=== PATIENT | male | born 1970 | race African-American/Black ===

== ENCOUNTER 2019-05-11 03:44 | Emergency (ER) | payer SELFPAY ==
--- NOTE | 2019-05-11 06:15 | RADIOLOGY REPORT (SQ) ---
Left foot three view on 05/11/2019 at 5:36 AM CLINICAL INDICATION: Left foot pain COMPARISON: None FINDINGS: There is mild diffuse osteopenia. Soft tissue swelling is noted around the first MTP joint. There is erosion with some overhanging edges involving the medial head of the first metatarsal suggesting changes of gout. No acute fracture is noted. Small plantar calcaneal spur is noted. No other bony abnormality is noted. IMPRESSION: Findings in the great toe suggestive of gout.
[2019-05-11] MEDS ORDERED: KETOROLAC TROMETHAMINE 60 MG/2 ML SDV IM ONE (09:22)
--- NOTE | 2019-05-11 09:28 | ER Document Report ---
ED General - General Chief Complaint: Foot Pain Stated Complaint: LEFT FOOT TOE SWELLING/RIGHT ELBOW SWELLING Time Seen by Provider: 05/11/19 07:01 TRAVEL OUTSIDE OF THE [place] IN LAST 30 DAYS: No - HPI Notes: Mr. Hood is a 48-year-old male with a past history of gout now presenting with 3-day history of increased pain and swelling over the MTP joint of his left foot. Patient also has several other areas of swelling most notably including his right elbow. He says he is taken intermittent treatment for acute gout in the past but is never been on any long-term maintenance medication. He does not currently have primary care doctor. Patient consumes beer on occasion. He is a non-smoker. His medical history is remarkable otherwise only for a history of renal stones. Patient is a building construction supervisor. - Related Data Allergies/Adverse Reactions: No Known Allergies Allergy (Verified 05/11/19 04:27) Home Medications: MOTRIN Past Medical History - General Information source: Patient, Relative - Social History Smoking Status: Former Smoker Frequency of alcohol use: Occasional Drug Abuse: None Lives with: Family Family History: Reviewed & Not Pertinent Patient has suicidal ideation: No Patient has homicidal ideation: No Renal/ Medical History: Reports: Hx Kidney Stones. Denies: Hx Peritoneal Dialysis Musculoskeletal Medical History: Reports Hx Arthritis - gout Review of Systems - Review of Systems Notes: Constitutional: Negative for fever. HENT: Negative for sore throat. Eyes: Negative for visual changes. Cardiovascular: Negative for chest pain. Respiratory: Negative for shortness of breath. Gastrointestinal: Negative for abdominal pain, vomiting or diarrhea. Genitourinary: Negative for dysuria. Musculoskeletal: As per HPI. Skin: Negative for rash. Neurological: Negative for headaches, weakness or numbness. 10 point ROS negative except as marked above and in HPI. Physical Exam - Vital signs Vitals: Temp Pulse Resp BP Pulse Ox 97.6 F 62 20 151/93 H 99 05/11/19 04:18 05/11/19 04:18 05/11/19 04:18 05/11/19 04:18 05/11/19 04:18 - Notes Notes: GENERAL: Well-developed well-nourished appearing in no acute distress. SKIN: Good turgor no rashes. HEAD: Normocephalic atraumatic. EYES: PERRLA. EOMI. Conjunctivae and sclerae clear. EARS: CANALS AND TMS CLEAR. NOSE: CLEAR. MOUTH: Moist mucosa. Good dentition. No stridor or edema. No drooling. NECK: Supple. No masses or thyromegaly. No adenopathy. Carotids 2+ without bruits. No JVD. BACK: Symmetrical without tenderness. CHEST: Respirations unlabored. Breath sounds clear and symmetrical. HEART: Regular rhythm. No murmur gallop or rub. ABDOMEN: Soft nontender without masses, organomegaly or rebound. Bowel sounds normally active. No bruits. GENITALIA: Deferred. EXTREMITIES: Tophaceous gout involving multiple joints. Patient has prominent swelling over the right olecranon area without warmth or redness. He has some soft tissue swelling tenderness and redness MTP joint left foot.. No calf tenderness. Cap refill less than 1.5 seconds. Dorsalis pedis and posterior tibial pulses 3+ and symmetrical. NEUROLOGICAL: GCS 15. Alert and oriented x3. Normal gait. Fluent speech. Cranial nerves II through XII intact. Sensorimotor and cerebellar normal. Normal tone. PSYCHIATRIC: Appropriate affect. Course - Re-evaluation Re-evalutation: 05/11/19 09:26 Clinical findings are consistent with chronic tophaceous gout with acute exacerbation and acute Prodegra. X-ray has been reviewed. He is given IM Toradol. - Vital Signs Vital signs: Temp Pulse Resp BP Pulse Ox 97.6 F 62 20 151/93 H 99 05/11/19 04:18 05/11/19 04:18 05/11/19 04:18 05/11/19 04:18 05/11/19 04:18 Discharge - Discharge Clinical Impression: Chronic tophaceous gout with acute exace Condition: Stable Disposition: HOME, SELF-CARE Additional Instructions: Gout Diet Changing your diet can decrease the uric acid in your blood. High levels of uric acid cause gouty arthritis and uric acid kidney stones. If you have gout, you should avoid meats that are high in purine. Meat products to avoid include liver, kidneys, and brains. In general, poultry is better than red meats. Seafoods to avoid include anchovies, sardines, mitchell, mackerel, and scallops. In addition to limiting purine-rich foods, people with gout should limit protein intake to 10-15% of total calories. Carbohydrate intake should be around 50% of total daily calories. Limit fat intake to 30% of total daily calories. Cholesterol intake should be less than 300 mg/day. Maintain or achieve a healthy body weight. Weight loss should be gradual. Rapid weight loss can actually increase uric acid levels temporarily. Alcohol, especially beer, should be avoided. Get plenty of fluids. This dilutes urinary uric acid, and helps prevent uric acid kidney stones. Drink eight to twelve cups of water daily. Gout You have been diagnosed as having gout. Gout is a problem caused by an excess of uric acid, a natural chemical found in the body. The cause of this disease is unknown. Gout arthritis occurs when crystals of uric acid form in the joints. The big toe is the most common joint involved, but any joint can become affected. Persons with gout may also form uric acid kidney stones, resulting in flank pain and blood in the urine. Nodules of uric acid may form under the skin. The first step of treatment is to decrease the inflammation in the joint with antiinflammatory medication. Medication to lower the uric acid level in the blood may then be prescribed. This medication should be taken regularly, as any sudden change in dosage may provoke an attack of gout. Some foods, such as red meat, can provoke an attack in some gout sufferers. Call the doctor if new symptoms arise, or if you do not improve. Ice and elevation. Take prescribed medication as instructed. You will be provided a work note for the next 3 days. Return here as needed for new or worsening symptoms: Pain that is worsening or unimproved Uncontrolled vomiting High fever or shaking chills Overall worsening Prescriptions: Colchicine [Colchicine 0.6 mg Tablet] 0.6 mg PO BID 30 Days #60 tablet Naproxen 500 mg PO BID PRN 7 Days #14 tablet PRN Reason: Forms: Return to Work Referrals: [facility] [Provider Group] - Follow up as needed
[2019-05-11 10:35] VITALS: BP 155/89
== END 2019-05-11 10:35 | disposition home or self-care (01) ==
LOC: ER 03:44
DX: M1A.9XX1 Chronic gout, unspecified, with tophus (tophi) (principal); M79.672 Pain in left foot; M25.421 Effusion, right elbow; Z87.442 Personal history of urinary calculi
CPT/HCPCS: 99283; 96372; 73630; J1885

== ENCOUNTER 2020-03-03 17:09 | Emergency (ER) | payer SELFPAY ==
[2020-03-03 17:15] VITALS: BP 127/60
--- NOTE | 2020-03-03 17:36 | ER Document Report ---
ED General - General Chief Complaint: Cough Stated Complaint: COUGH,CONGESTION,FEVER,BODY ACHES Time Seen by Provider: 03/03/20 17:35 Primary Care Provider: JA VICK MD [ACTIVE STAFF] - Follow up as needed CATHLEEN AVILES [Primary Care Provider] - Follow up as needed TRAVEL OUTSIDE OF THE [place] IN LAST 30 DAYS: No - HPI Notes: 49-year-old male presents to the emergency room today for evaluation of a cough that he has been having for the last 5 days that has become progressively worse. Patient states that he has had flulike symptoms,, nasal congestion, slightly productive cough over the last 3 days. Patient did not get the flu shot this year. Patient states he is around multiple people because of his job, he is unsure if he has had any Covid exposure. Patient denies smoking. Denies any history of COPD or asthma. Decrease eating but is drinking without any issues. Denies fevers, chills, chest pain,palpitations, shortness of breath, dyspnea, nausea, vomiting, diarrhea, abdominal pain, hematuria, LH, dizziness, syncope, headaches, wheezing, ST, URI, neck pain, weakness, bowel or bladder dysfunction, saddle anesthesia, numbness or tingling in bilateral upper or lower extremities equally, muscle paralysis, weakness in bilateral upper or lower extremities equally or rash. Denies IV drug use. - Related Data Allergies/Adverse Reactions: No Known Allergies Allergy (Verified 03/03/20 17:48) Past Medical History - General Information source: Patient - Social History Smoking Status: Unknown if Ever Smoked Family History: Reviewed & Not Pertinent Renal/ Medical History: Reports: Hx Kidney Stones. Denies: Hx Peritoneal Dialysis Musculoskeletal Medical History: Reports Hx Arthritis - gout Review of Systems - Review of Systems Constitutional: No symptoms reported EENT: No symptoms reported Cardiovascular: No symptoms reported Respiratory: See HPI Gastrointestinal: No symptoms reported Genitourinary: No symptoms reported Male Genitourinary: No symptoms reported Musculoskeletal: No symptoms reported Skin: No symptoms reported Hematologic/Lymphatic: No symptoms reported Neurological/Psychological: No symptoms reported Physical Exam - Vital signs Vitals: Temp Pulse Resp BP Pulse Ox 99.5 F 88 16 127/60 H 99 03/03/20 17:14 03/03/20 17:14 03/03/20 17:14 03/03/20 17:14 03/03/20 17:14 - Notes Notes: MEDICATIONS: I agree with the patient medications as charted by the RN. ALLERGIES: I agree with the allergies as charted by the RN. PAST MEDICAL HISTORY/PAST SURGICAL HISTORY: Reviewed and agree as charted by RN. SOCIAL HISTORY: Reviewed and agree as charted by RN. FAMILY HISTORY: No significant familial comorbid conditions directly related to patient complaint EXAM: Reviewed vital signs as charted by RN. PHYSICAL EXAMINATION:reviewed vital signs by RN GENERAL: Well-appearing, well-nourished and in no acute distress. HEAD: Atraumatic, normocephalic. EYES: Pupils equal round and reactive to light, extraocular movements intact, sclera anicteric, conjunctiva are normal. boggy turbinates bilaterally ENT: Nares patent, oropharynx clear without exudates. Moist mucous membranes. NECK: Normal range of motion, supple without lymphadenopathy LUNGS: Breath sounds clear to auscultation bilaterally and equal. No wheezes rales or rhonchi. HEART: Regular rate and rhythm without murmurs ABDOMEN: Soft, nontender, nondistended abdomen. No guarding, no rebound. No masses appreciated. CVA tenderness appreciated bilaterally Musculoskeletal: Normal range of motion, no pitting or edema. No cyanosis. NEUROLOGICAL: Cranial nerves grossly intact. Normal speech, normal gait. Normal sensory, motor exams PSYCH: Normal mood, normal affect. SKIN: Warm, Dry, normal turgor, no rashes or lesions noted. Course - Re-evaluation Re-evalutation: 03/03/20 19:48 Afebrile vital stable no distress. Nurses notes reviewed. CBC does show anemia. CMP shows a creatinine of 2.92, BUN is 38, totally total bilirubin 1.1, direct bilirubin 0.9, ALT 56, AST 49, alk phos 612. 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 Patient states that he was given a nephrostomy tube, had a wait about a month for the infection to clear, and then they changed out the stent, he has not seen nephrology since then, has not seen a primary care doctor since then. Patient states he has not had any follow-up since November 2018. Consulted with Dr. José Antonio Meza, ER supervising physician who advised to call [facility] if they could fax over their last set of labs and what the disposition was from October 2018 since patient is a poor historian. [facility] said they would fax over the last set of labs that they had in the disposition. When I discussed with patient that we will have to do further testing, and consult with a urologist, he states that he does not want to stay any longer for any testing because he feels fine. he was happy to hear that his chest x-ray was negative, he said he felt better after receiving Decadron shot and was ready to leave. Patient states he has not been dialysis has not seen a video games storywriter. He states that if he does not leave now he is going to lose his job. After performing a Medical Screening Examination, I spoke with the patient at length in regards to leaving the hospital against medical advice. I do not believe the patient should leave but the patient is alert oriented x4, understands the risks and benefits of staying and leaving including disability and . Pt understands that he can return at any time for further care and is more than welcome to do so. Pt verbalizes this understanding. - Vital Signs Vital signs: Temp Pulse Resp BP Pulse Ox 99.5 F 88 16 127/60 H 99 03/03/20 17:46 03/03/20 17:14 03/03/20 17:14 03/03/20 17:14 03/03/20 17:14 - Laboratory Result Diagrams: 03/03/20 18:08 03/03/20 18:08 Laboratory results interpreted by me: 03/03/20 03/03/20 03/03/20 18:08 18:08 18:08 WBC 3.4 L RBC 4.02 L Hgb 10.7 L Hct 31.9 L MCV 79 L MCH 26.6 L RDW 14.2 H Plt Count 87 L Lymph % (Auto) 10.2 L [place] % (Auto) 13.4 H Absolute Lymphs (auto) 0.3 L Carbon Dioxide 19 L BUN 38 H Creatinine 2.92 H Est GFR ( Amer) 28 L Est GFR (MDRD) Non-Af 23 L Glucose 124 H Direct Bilirubin 0.9 H ALT 56 H Alkaline Phosphatase 612 H Lipase 307.1 H Discharge - Discharge Clinical Impression: Cough, FRANKLYN (acute kidney injury) Disposition: AGAINST MEDICAL ADVICE Instructions: COVID-19 Guidance for Persons Under Investigation Prescriptions: Albuterol Sulfate [Proair Respiclick] 90 mcg IH Q4HP PRN #1 [id number] PRN Reason: Prednisone [Deltasone 20 mg Tablet] 3 tab PO DAILY 5 Days #15 tablet Azithromycin [Zithromax] 250 mg PO DAILY 5 Days #6 tablet Forms: Return to Work Referrals: TRACI,CATHLEEN [Primary Care Provider] - Follow up as needed JA VICK MD [ACTIVE STAFF] - Follow up as needed
--- NOTE | 2020-03-03 18:14 | RADIOLOGY REPORT (SQ) ---
EXAM DESCRIPTION: CHEST SINGLE VIEW IMAGES COMPLETED DATE/TIME: 03/03/2020 5:57 pm REASON FOR STUDY: cough COMPARISON: None. NUMBER OF VIEWS: One view. TECHNIQUE: Single frontal radiographic view of the chest acquired. LIMITATIONS: None. FINDINGS: LUNGS AND PLEURA: Low lung volumes. No opacities, masses or pneumothorax. No pleural eff usion. MEDIASTINUM AND HILAR STRUCTURES: No masses. No contour abnormality. HEART AND VASCULAR STRUCTURES: Normal size. No evidence for failure. BONES: No acute findings. HARDWARE: None in the chest. OTHER: No other significant finding. IMPRESSION: LOW LUNG VOLUMES. NO SIGNIFICANT RADIOGRAPHIC FINDING IN THE CHEST. TECHNICAL DOCUMENTATION: JOB ID: [id number] 2010 [employer] All Rights Reserved Reading location - IP/workstation name: [email or web address]
[2020-03-03] MEDS ORDERED: DEXAMETHASONE SOD PHOS INJ 10 MG/1 ML VIAL IM ONE (18:28)
[2020-03-03 18:34] LABS: ABSOLUTE LYMPHOCYTES (AUTO) 0.3 10^3/uL (0.5-4.7); ABSOLUTE MONOCYTES (AUTO) 0.5 10^3/uL (0.1-1.4); ABSOLUTE NEUT (AUTO) 2.6 10^3/uL (1.7-8.2); BASOPHILS % (AUTO) 0.3 % (0-2); EOSINOPHILS % (AUTO) 0.6 % (0-6); HEMATOCRIT 31.9 % (37.9-51.0); HEMOGLOBIN 10.7 g/dL (13.5-17.0); LYMPHOCYTES % (AUTO) 10.2 % (13-45); MEAN CORPUSCULAR HEMOGLOBIN 26.6 pg (27.0-33.4); MEAN CORPUSCULAR HGB CONC 33.5 g/dL (32.0-36.0); MEAN CORPUSCULAR VOLUME 79 fl (80-97); MONOCYTES % (AUTO) 13.4 % (3-13); RED BLOOD COUNT 4.02 10^6/uL (4.35-5.55); RED CELL DISTRIBUTION WIDTH 14.2 % (11.5-14.0); SEGMENTED NEUTROPHILS % (AUTO) 75.5 % (42-78); TOTAL CELLS COUNTED % (AUTO) 100 %; WHITE BLOOD COUNT 3.4 10^3/uL (4.0-10.5)
[2020-03-03] MEDS ORDERED: DEXAMETHASONE SOD PHOSPHATE INJ 4 MG/1 ML VIAL ONE (18:42)
[2020-03-03 18:47] LABS: A TYPE INFLUENZA AG NEGATIVE (NEGATIVE); B INFLUENZA AG NEGATIVE (NEGATIVE)
[2020-03-03 18:50] LABS: ALBUMIN 3.9 g/dL (3.5-5.0); ALKALINE PHOSPHATASE 612 U/L (38-126); ANION GAP 13 (5-19); ASPARTATE AMINO TRANSFERASE 49 U/L (17-59); BILIRUBIN,DIRECT 0.9 mg/dL (0.0-0.4); BILIRUBIN,TOTAL 1.1 mg/dL (0.2-1.3); BLOOD UREA NITROGEN 38 mg/dL (7-20); CALCIUM 10.1 mg/dL (8.4-10.2); CARBON DIOXIDE 19 mmol/L (22-30); CHLORIDE 106 mmol/L (98-107); GLUCOSE 124 mg/dL (75-110); POTASSIUM 4.1 mmol/L (3.6-5.0); TOTAL PROTEIN 7.2 g/dL (6.3-8.2)
[2020-03-03 18:52] LABS: PLATELET COUNT 87 10^3/uL (150-450)
[2020-03-03] MEDS ORDERED: NORMAL SALINE 1000 ML 1,000 ML IV ONE (19:21)
== END 2020-03-03 19:57 | disposition left against medical advice (07) ==
LOC: ER 17:09
DX: U07.1 COVID-19 (principal); N17.9 Acute kidney failure, unspecified; R05 Cough; R09.81 Nasal congestion; D64.9 Anemia, unspecified; Z87.442 Personal history of urinary calculi; Z53.29 Procedure and treatment not carried out because of patient's decision for other reasons
CPT/HCPCS: 99284; 96372; 36415; 83690; 85025; 87635; 80053; 87804; 71045; J1100; C9803

== ENCOUNTER 2020-03-09 12:00 | Inpatient (IN) | payer SELFPAY ==
[2020-03-09] MEDS ORDERED: NORMAL SALINE 1000 ML 1,000 ML IV ONE (12:22)
[2020-03-09] MEDS ORDERED: ACETAMINOPHEN 325 MG TABLET PO ONE ×2 (12:22→12:23)
--- NOTE | 2020-03-09 12:37 | RADIOLOGY REPORT (SQ) ---
EXAM DESCRIPTION: CHEST SINGLE VIEW IMAGES COMPLETED DATE/TIME: 03/09/2020 12:26 pm REASON FOR STUDY: Hypoxic, dyspnea, Covid positive COMPARISON: 03/03/2020 EXAM PARAMETERS: NUMBER OF VIEWS: One view. TECHNIQUE: Single frontal radiographic view of the chest acquired. RADIATION DOSE: NA LIMITATIONS: None. FINDINGS: LUNGS AND PLEURA: There is diffuse bilateral alveolar airspace disease most marked in the lung bases. This could represent pneumonia or edema. Clinical correlation is needed. No effusions. MEDIASTINUM AND HILAR STRUCTURES: No masses. Contour normal. HEART AND VASCULAR STRUCTURES: Heart size is normal. There is mild central vascular prominence. BONES: No acute findings. HARDWARE: None in the chest. OTHER: There is gastric distention. IMPRESSION: Bibasilar alveolar airspace disease either pneumonia or edema. Fairly marked gastric distention. TECHNICAL DOCUMENTATION: JOB ID: [id number] 2010 [employer]- All Rights Reserved Reading location - IP/workstation name: [email or web address]
[2020-03-09 12:50] LABS: HEMATOCRIT 34.7 % (37.9-51.0); HEMOGLOBIN 11.6 g/dL (13.5-17.0); MEAN CORPUSCULAR HEMOGLOBIN 25.8 pg (27.0-33.4); MEAN CORPUSCULAR HGB CONC 33.3 g/dL (32.0-36.0); MEAN CORPUSCULAR VOLUME 77 fl (80-97); PLATELET COUNT 206 10^3/uL (150-450); RED BLOOD COUNT 4.48 10^6/uL (4.35-5.55); RED CELL DISTRIBUTION WIDTH 13.9 % (11.5-14.0); WHITE BLOOD COUNT 10.1 10^3/uL (4.0-10.5)
[2020-03-09 13:15] LABS: ALBUMIN 3.9 g/dL (3.5-5.0); ALKALINE PHOSPHATASE 721 U/L (38-126); ANION GAP 17 (5-19); ASPARTATE AMINO TRANSFERASE 63 U/L (17-59); BILIRUBIN,DIRECT 0.9 mg/dL (0.0-0.4); BILIRUBIN,TOTAL 1.1 mg/dL (0.2-1.3); BLOOD UREA NITROGEN 84 mg/dL (7-20); C-REACTIVE PROTEIN 66.3 mg/L (<10.0); CALCIUM 9.6 mg/dL (8.4-10.2); CARBON DIOXIDE 14 mmol/L (22-30); CHLORIDE 108 mmol/L (98-107); CREATINE KINASE 45 U/L (55-170); GLUCOSE 145 mg/dL (75-110); POTASSIUM 4.8 mmol/L (3.6-5.0); TOTAL PROTEIN 7.9 g/dL (6.3-8.2)
[2020-03-09 13:26] LABS: ABSOLUTE LYMPHOCYTES# (MANUAL) 0.8 10^3/uL (0.5-4.7); ABSOLUTE MONOCYTES # (MANUAL) 0.1 10^3/uL (0.1-1.4); BAND NEUTROPHILS % (MANUAL) 1 % (3-5); BASOPHILS % (MANUAL) 0 % (0-2); EOSINOPHILS % (MANUAL) 0 % (0-6); LYMPHOCYTES % (MANUAL) 8 % (13-45); MONOCYTES % (MANUAL) 1 % (3-13); SEGMENTED NEUTROPHILS % (MAN) 90 % (42-78); TOTAL CELLS COUNTED 100
[2020-03-09 13:28] LABS: ANISOCYTOSIS SLIGHT; HYPOCHROMASIA 1+
[2020-03-09 13:33] LABS: ERYTHROCYTE SEDIMENTATION RATE 106 mm/hr (0-20)
[2020-03-09 13:35] LABS: PLATELET COMMENT ADEQUATE
--- NOTE | 2020-03-09 13:50 | ER Document Report ---
Entered by SERENE ABRAMS SCRIBE 03/09/20 1202 Acting as scribe for:EUGENIO UREÑA MD ED Respiratory Problem - General Stated Complaint: COVID + SHORTNESS OF BREATH Time Seen by Provider: 03/09/20 12:02 Mode of Arrival: Ambulatory Information source: Patient Notes: This 49 year old male patient presents to the emergency department today with complaints of shortness of breath. Patient was seen here on 03/03 and was tested for COVID and he was POSITIVE. He reports increasing shortness of breath over the past two days with fevers. Patient reports his cough has gotten a little better. Medic 9 reported an oxygen saturation of 29% on room air when they arrived at the patient's residence, vlad to 80% on cpap. TRAVEL OUTSIDE OF THE [place] IN LAST 30 DAYS: No - Related Data Allergies/Adverse Reactions: No Known Allergies Allergy (Verified 03/03/20 17:48) Past Medical History - General Information source: Patient, [facility] Records - Social History Smoking Status: Never Smoker Cigarette use (# per day): No Frequency of alcohol use: None Drug Abuse: None Family History: Reviewed & Not Pertinent Renal/ Medical History: Reports: Hx Kidney Stones Musculoskeletal Medical History: Reports Hx Gout Past Surgical History: Reports: Other - kidney stone removal Review of Systems - Review of Systems Constitutional: See HPI, Fever EENT: No symptoms reported Cardiovascular: No symptoms reported Respiratory: See HPI, Short of breath. denies: Cough Gastrointestinal: No symptoms reported Genitourinary: No symptoms reported Male Genitourinary: No symptoms reported Musculoskeletal: No symptoms reported Skin: No symptoms reported Hematologic/Lymphatic: No symptoms reported Neurological/Psychological: No symptoms reported -: Yes All other systems reviewed and negative Physical Exam - Vital signs Vitals: Temp 100.7 F H 03/09/20 12:38 - Notes Notes: Physical Exam: General: Alert, on c-pap saturating in the upper 90s. HEENT: Normocephalic. Atraumatic. PERRL. Extraocular movements intact. Oropharynx clear. Neck: Supple. Non-tender. Respiratory: Moderate respiratory distress. Rhonchi bilaterally. Tachypneic into the 30s. Cardiovascular: Tachycardic, regular rhythm. Abdominal: Normal Inspection. Non-tender. No distension. Normal Bowel Sounds. Back: No gross abnormalities. Extremities: Moves all four extremities. Upper extremities: Normal inspection. Normal ROM. Lower extremities: Normal inspection. No edema. Normal ROM. Neurological: Normal cognition. AAOx4. Normal speech. Psychological: Normal affect. Normal Mood. Skin: Warm. Dry. Normal color. Course - Re-evaluation Re-evalutation: 03/09/20 13:55 Patient is on BiPAP with an FiO2 50%. He is maintaining an O2 saturation of 96%. His pulse has come down to 88. Lab work came back showing acute worsening of his already impaired renal function, chest x-ray is consistent with Covid pneumonia. He will be given Decadron 6 mg IV, and open the current normal saline IV back to wide-open. Dr. Lester will be admitting the patient. - Vital Signs Vital signs: Temp Pulse Resp BP Pulse Ox 100.7 F H 31 H 95 03/09/20 12:38 03/09/20 13:08 03/09/20 13:08 - Laboratory Result Diagrams: 03/09/20 12:12 03/09/20 12:12 Laboratory results interpreted by me: 03/09/20 03/09/20 03/09/20 12:12 12:12 12:12 Hgb 11.6 L Hct 34.7 L MCV 77 L MCH 25.8 L Seg Neuts % (Manual) 90 H Band Neutrophils % 1 L Lymphocytes % (Manual) 8 L Monocytes % (Manual) 1 L Abs Neuts (Manual) 9.2 H ESR 106 H VBG pCO2 VBG HCO3 Chloride 108 H Carbon Dioxide 14 L BUN 84 H Creatinine 4.87 H Est GFR ( Amer) 15 L Est GFR (MDRD) Non-Af 13 L Glucose 145 H Ferritin 554.00 H Direct Bilirubin 0.9 H AST 63 H Alkaline Phosphatase 721 H Creatine Kinase 45 L C-Reactive Protein 66.3 H NT-Pro-B Natriuret Pep 155 H 03/09/20 13:20 Hgb Hct MCV MCH Seg Neuts % (Manual) Band Neutrophils % Lymphocytes % (Manual) Monocytes % (Manual) Abs Neuts (Manual) ESR VBG pCO2 23.3 L VBG HCO3 11.7 L Chloride Carbon Dioxide BUN Creatinine Est GFR ( Amer) Est GFR (MDRD) Non-Af Glucose Ferritin Direct Bilirubin AST Alkaline Phosphatase Creatine Kinase C-Reactive Protein NT-Pro-B Natriuret Pep - Diagnostic Test Radiology reviewed: Image reviewed, Reports reviewed - Chest x-ray shows diffuse bilateral alveolar airspace disease most marked in the lung bases c/w with either pneumonia or edema. Fairly marked gastric distention. - EKG Interpretation by Me EKG shows normal: Sinus rhythm, Dana, Intervals, QRS Complexes, ST-T Waves Rate: Normal - 81 Rhythm: NSR Voltage: Consistent with LVH When compared to previous EKG there are: Previous EKG unavailable - Consults Dr. Lester Time consulted: 13:55 Consulted provider: will come to ER Discharge - Discharge Clinical Impression: Lab test positive for detection of COVID-19 virus, Pneumonia due to COVID-19 virus, FRANKLYN (acute kidney injury), Dehydration Fever Qualifiers: Fever type: unspecified Qualified Code(s): R50.9 - Fever, unspecified Condition: Fair Disposition: ADMITTED INPATIENT Admitting Provider: Tayler (Hospitalist) Unit Admitted: IMCU I personally performed the services described in the documentation, reviewed and edited the documentation which was dictated to the scribe in my presence, and it accurately records my words and actions.
[2020-03-09] MEDS ORDERED: DEXAMETHASONE SOD PHOS INJ 10 MG/1 ML VIAL IV ONE (14:01)
[2020-03-09 14:09] LABS: VENOUS BLOOD BASE EXCESS -11.7 mmol/L; VENOUS BLOOD HCO3 11.7 mmol/L (20-32); VENOUS BLOOD PCO2 23.3 mmHg (35-63); VENOUS BLOOD PH 7.32 (7.30-7.42)
[2020-03-09] MEDS ORDERED: IPRATROPIUM/ALBUTEROL 0.5-2.5 MG/3 ML AMPUL NEB PRN (16:24)
[2020-03-09] MEDS ORDERED: ONDANSETRON HCL INJ/PF 4 MG/2 ML SDV IV PRN (16:24)
--- NOTE | 2020-03-09 17:35 | PDOC H&P ---
History of Present Illness Admission Date/PCP: 03/09/20 14:45 Patient complains of: Shortness of breath History of Present Illness: TERENCE HINTON JR is a 49 year old male, no significant PMH who came in the ED today due to progressive SOB. Patient was seen in the emergency room on March 03, 2020 with complaints of cough fever and congestion 5 days duration. Chest x-ray was negative. He was noted to have elevated creatinine during that visit. He was advised to be admitted but he insisted he wanted to go home. He was tested for Covid and the result came back positive the next day. At home he continued to have cough congestion with progressive shortness of breath which acutely worsened today hence he came to the ED. He was noted to have an O2 sat of 80% in the ambulance on the way here. In the ED blood pressure 129/60 heart rate of 75 respiratory rate of 32 O2 sat 96% on CPAP. He was placed on BiPAP in the ED continue to have saturation of 100%. Repeat chest x-ray showed bibasilar alveolar airspace disease. CBC unremarkable, CMP showed a creatinine of 4.87 which is increased from 2.92 from his last visit. Ferritin elevated to 554 CRP elevated to 66.3. Hospitalist service was called to admit the patient. Past Medical History Medical History: None Cardiac Medical History: Reports: None Pulmonary Medical History: Reports: None EENT Medical History: Reports: None Neurological Medical History: Reports: None Endocrine Medical History: Reports: None Renal/ Medical History: Reports: None Malignancy Medical History: Reports: None GI Medical History: Reports: None Musculoskeltal Medical History: Reports: Arthritis - gout, Gout Skin Medical History: Reports: None Psychiatric Medical History: Reports: None Traumatic Medical History: Reports: None Hematology: Reports: None Infectious Medical History: Reports: None Past Surgical History Past Surgical History: Reports: None, Other - kidney stone removal Social History Information Source: Patient Lives with: Family Smoking Status: Never Smoker Electronic Cigarette use?: No Frequency of Alcohol Use: Occasional Hx Recreational Drug Use: No Drugs: None Family History Family History: Reviewed & Not Pertinent Parental Family History Reviewed: Yes Children Family History Reviewed: Yes Sibling(s) Family History Reviewed.: Yes Medication/Allergy Home Medications: Codeine Phosphate/Guaifenesin [Virtussin AC 10-100 mg/5 ml Lq] 5 ml PO Q6HP PRN 11/13/20 Doxycycline Hyclate [Vibramycin 100 mg Tablet] 100 mg PO DAILY 03/09/20 Allergies/Adverse Reactions: No Known Allergies Allergy (Verified 03/03/20 17:48) Review of Systems Constitutional: PRESENT: fatigue, weakness Ears: ABSENT: hearing changes Nose, Mouth, and Throat: ABSENT: sore throat Cardiovascular: PRESENT: dyspnea on exertion Respiratory: PRESENT: cough Psychiatric: ABSENT: anxiety Endocrine: ABSENT: heat intolerance Physical Exam Vital Signs: Temp Pulse Resp BP Pulse Ox 98.5 F 33 H 122/74 96 03/09/20 16:57 03/09/20 15:00 03/09/20 15:00 03/09/20 15:00 Intake & Output 03/08/20 03/09/20 03/10/20 06:59 06:59 06:59 Weight 77.111 kg General appearance: PRESENT: cooperative, other - Moderate distress Head exam: PRESENT: atraumatic, normocephalic Eye exam: PRESENT: EOMI, PERRLA Mouth exam: PRESENT: dry mucosa Neck exam: PRESENT: full ROM Respiratory exam: PRESENT: rales, symmetrical, tachypnea Cardiovascular exam: PRESENT: RRR, +S1, +S2 Pulses: PRESENT: +2 pedal pulses bilateral GI/Abdominal exam: PRESENT: normal bowel sounds, soft. ABSENT: rebound, tenderness Extremities exam: PRESENT: full ROM Musculoskeletal exam: PRESENT: full ROM Neurological exam: PRESENT: alert, awake, oriented to person, oriented to place, oriented to time, oriented to situation Psychiatric exam: PRESENT: normal mood Results Laboratory Results: 03/09/20 12:12 03/09/20 12:12 03/09/20 03/09/20 03/09/20 12:12 12:12 12:12 WBC 10.1 RBC 4.48 Hgb 11.6 L Hct 34.7 L MCV 77 L MCH 25.8 L MCHC 33.3 RDW 13.9 Plt Count 206 Seg Neutrophils % Not Reportable VBG pH VBG pCO2 VBG HCO3 VBG Base Excess Sodium 139.2 Potassium 4.8 Chloride 108 H Carbon Dioxide 14 L Anion Gap 17 BUN 84 H Creatinine 4.87 H Est GFR ( Amer) 15 L Glucose 145 H Calcium 9.6 Magnesium 1.9 Ferritin 554.00 H Total Bilirubin 1.1 AST 63 H Alkaline Phosphatase 721 H C-Reactive Protein 66.3 H Total Protein 7.9 Albumin 3.9 03/09/20 13:20 WBC RBC Hgb Hct MCV MCH MCHC RDW Plt Count Seg Neutrophils % VBG pH 7.32 VBG pCO2 23.3 L VBG HCO3 11.7 L VBG Base Excess -11.7 Sodium Potassium Chloride Carbon Dioxide Anion Gap BUN Creatinine Est GFR ( Amer) Glucose Calcium Magnesium Ferritin Total Bilirubin AST Alkaline Phosphatase C-Reactive Protein Total Protein Albumin 03/09/20 03/09/20 03/09/20 12:12 12:12 12:12 Creatine Kinase 45 L Troponin I 0.063 NT-Pro-B Natriuret Pep 155 H Impressions: Chest X-Ray 03/09/20 12:14 IMPRESSION: Bibasilar alveolar airspace disease either pneumonia or edema. Fairly marked gastric distention. Assessment and Plan - Diagnosis (1) Acute hypoxemic respiratory failure due to COVID-19 Is this a current diagnosis for this admission?: Yes Plan: -Tested positive for Covid 5 days prior to admission -O2 sat 80% on room air as noted by EMS -Improved 100% on BiPAP FiO2 50% -Chest x-ray showing bilateral airspace opacities consistent with pneumonia -Continue oxygen support. I have asked the nurse to switch him to high flow nasal cannula (2) Pneumonia due to COVID-19 virus Is this a current diagnosis for this admission?: Yes Plan: -Tested positive for Covid pneumonia 5 days prior to admission -Chest x-ray as above -Started on remdesivir and convalescent plasma -DuoNeb as needed -Vitamin C, vitamin D, zinc -Continue oxygen support via high flow nasal cannula -Patient is full code (3) Acute kidney injury superimposed on chronic kidney disease Is this a current diagnosis for this admission?: Yes Plan: -Has a history of chronic kidney disease and kidney stone with nephrostomy tube placement back in 2019 -Baseline creatinine 2.6 -I suspect this is around his baseline creatinine -We will order urine creatinine and urine sodium to calculate [place] -We will give IV fluids for now and stop tomorrow (4) Elevated troponin I level Is this a current diagnosis for this admission?: Yes Plan: -Troponin 0.0 16 -EKG sinus rhythm no ST elevation -Likely secondary to demand ischemia -Trend troponin (5) Microcytic anemia Is this a current diagnosis for this admission?: Yes Plan: Hemoglobin 11.6, MCV 77 - will order iron studies - he is also due his colonoscopy (6) History of kidney stones Is this a current diagnosis for this admission?: Yes Plan: -Back in 2019 had nephrostomy stent which was subsequently removed His CKD may be secondary to this - Plan Summary Summary: Osito is a 49-year-old male no significant past medical history who came in due to progressive shortness of breath. Chest x-ray findings consistent for Covid pneumonia. He is currently on BiPAP 50% FiO2 saturating 96%. He will be started on remdesivir, convalescent plasma, dexamethasone. - Time Time Spent with patient: 35 or more minutes Medications reviewed and adjusted accordingly: Yes Anticipated Discharge Disposition: Home, Self Care Anticipated Discharge Timeframe: To be determined - Inpatient Certification Based on my medical assessment, after consideration of the patient's c omorbidities, presenting symptoms, or acuity I expect that the services needed warrant INPATIENT care.: Yes I certify that my determination is in accordance with my understanding of Medicare's requirements for reasonable and necessary INPATIENT services [42 CFR 412.3e].: Yes Medical Necessity: Failure to Improve With Outpatient Therapy
[2020-03-09] MEDS: ASCORBIC ACID 500 MG TABLET PO SCH (17:41)
[2020-03-09 18:15] LABS: ARTERIAL BLOOD BASE EXCESS -9.2 mmol/L; ARTERIAL BLOOD H2CO3 0.82 mmol/L (1.05-1.35); ARTERIAL BLOOD HCO3 14.9 mmol/L (20-24); ARTERIAL BLOOD O2 SATURATION 96.6 % (94-98); ARTERIAL BLOOD PCO2 27.4 mmHg (35-45); ARTERIAL BLOOD PH 7.35 (7.35-7.45); ARTERIAL BLOOD PO2 88.6 mmHg (80-100); ARTERIAL BLOOD TOTAL CO2 15.8 mmol/L (23-27)
[2020-03-09 18:17] LABS: ARTERIAL BLOOD FIO2 100%
[2020-03-09 18:23] LABS: ABSOLUTE RETICS # 0.034 10^6/uL (0.028-0.122); RETICULOCYTE COUNT (AUTO) 0.85 % (0.66-2.85)
[2020-03-09 18:26] LABS: URINE CREATININE 117.2 mg/dL (22-328)
[2020-03-09 18:38] LABS: AMORPHOUS SEDIMENT,URINE 1+ /HPF; APPEARANCE,URINE CLOUDY; BILIRUBIN,URINE NEGATIVE (NEGATIVE); COLOR,URINE YELLOW; GLUCOSE, URINE NEGATIVE (NEGATIVE); KETONES,URINE NEGATIVE (NEGATIVE); LEUKOCYTE ESTERASE,URINE NEGATIVE (NEGATIVE); NITRITE,URINE NEGATIVE (NEGATIVE); PROTEIN,URINE 100 mg/dL (NEGATIVE); URINE SPECIFIC GRAVITY 1.014; UROBILINOGEN,URINE NEGATIVE mg/dL (<2.0)
[2020-03-09 19:27] LABS: IRON(TIBC) < 10.1 ug/dL (49-181)
[2020-03-09 19:50] LABS: FOLATE 9.57 ng/mL (>2.76)
[2020-03-09] MEDS: NORMAL SALINE 1000 ML 1,000 ML IV PRN (21:02)
[2020-03-09] MEDS ORDERED: REMDESIVIR 200 MG in NORMAL SALINE 250 ML IV ONE (22:00)
[2020-03-09] MEDS: FAMOTIDINE 20 MG TABLET PO SCH (22:14)
[2020-03-10 06:06] LABS: HEMATOCRIT 30.8 % (37.9-51.0); HEMOGLOBIN 10.3 g/dL (13.5-17.0); MEAN CORPUSCULAR HGB CONC 33.5 g/dL (32.0-36.0); MEAN CORPUSCULAR VOLUME 78 fl (80-97); PLATELET COUNT 171 10^3/uL (150-450); RED BLOOD COUNT 3.97 10^6/uL (4.35-5.55); RED CELL DISTRIBUTION WIDTH 14.2 % (11.5-14.0); WHITE BLOOD COUNT 9.4 10^3/uL (4.0-10.5)
[2020-03-10 06:20] LABS: ABSOLUTE LYMPHOCYTES# (MANUAL) 0.1 10^3/uL (0.5-4.7); ABSOLUTE MONOCYTES # (MANUAL) 0.2 10^3/uL (0.1-1.4); BASOPHILS % (MANUAL) 0 % (0-2); EOSINOPHILS % (MANUAL) 0 % (0-6); LYMPHOCYTES % (MANUAL) 1 % (13-45); MONOCYTES % (MANUAL) 2 % (3-13); SEGMENTED NEUTROPHILS % (MAN) 97 % (42-78); TOTAL CELLS COUNTED 100
[2020-03-10 06:21] LABS: HYPOCHROMASIA SLIGHT; OVALOCYTES SLIGHT; PLATELET COMMENT ADEQUATE; TEAR DROP CELLS SLIGHT
[2020-03-10 06:23] LABS: ALBUMIN 3.4 g/dL (3.5-5.0); ALKALINE PHOSPHATASE 546 U/L (38-126); ANION GAP 14 (5-19); ASPARTATE AMINO TRANSFERASE 52 U/L (17-59); BILIRUBIN,DIRECT 0.6 mg/dL (0.0-0.4); BILIRUBIN,TOTAL 0.6 mg/dL (0.2-1.3); BLOOD UREA NITROGEN 83 mg/dL (7-20); CALCIUM 9.3 mg/dL (8.4-10.2); CARBON DIOXIDE 13 mmol/L (22-30); CHLORIDE 113 mmol/L (98-107); GLUCOSE 136 mg/dL (75-110); POTASSIUM 4.8 mmol/L (3.6-5.0)
[2020-03-10] MEDS ORDERED: INFLUENZA QUAD (6MOS+) 2020-21 VAC 0.5 ML SYR IM ONE (08:00)
[2020-03-10] MEDS: NORMAL SALINE 1000 ML 1,000 ML IV PRN ×2 (08:41→17:22)
--- NOTE | 2020-03-10 09:42 | EKG REPORT ---
SEVERITY:- ABNORMAL ECG - SINUS RHYTHM LEFT VENTRICULAR HYPERTROPHY : Confirmed by: Alayna Jansen 10-Mar-2020 09:42:14
[2020-03-10] MEDS ORDERED: DEXAMETHASONE SOD PHOS INJ 10 MG/1 ML VIAL IV SCH (10:00)
[2020-03-10] MEDS: CHOLECALCIFEROL (D3) 1,000 UNIT (25 MCG) TABLET PO SCH (11:01)
[2020-03-10] MEDS: FAMOTIDINE 20 MG TABLET PO SCH ×2 (11:01→21:49)
[2020-03-10] MEDS: ENOXAPARIN SODIUM INJ 40 MG/0.4 ML DISP.SYRIN SUBCUT SCH (11:01)
[2020-03-10] MEDS: DEXAMETHASONE SOD PHOSPHATE INJ 4 MG/1 ML VIAL IV SCH (11:01)
[2020-03-10] MEDS: ASCORBIC ACID 500 MG TABLET PO SCH ×2 (11:02→17:22)
[2020-03-10] MEDS: ZINC SULFATE 220 MG CAPSULE PO SCH (11:02)
--- NOTE | 2020-03-10 13:01 | PDOC PROGRESS REPORT ---
Subjective Date:: 03/10/20 Subjective:: TERENCE HINTON JR is a 49 year old male, no significant PMH who came in the ED to day due to progressive SOB. Patient was seen in the emergency room on March 03, 2020 with complaints of cough fever and congestion 5 days duration. Chest x- ray was negative. He was noted to have elevated creatinine during that visit. He was advised to be admitted but he insisted he wanted to go home. He was tested for Covid and the result came back positive the next day. At home he continued to have cough congestion with progressive shortness of breath which acutely worsened today hence he came to the ED. He was noted to have an O2 sat of 80% in the ambulance on the way here. In the ED blood pressure 129/60 heart rate of 75 respiratory rate of 32 O2 sat 96% on CPAP. He was placed on BiPAP in the ED continue to have saturation of 100%. Repeat chest x-ray showed bibasilar alveolar airspace disease. CBC unremarkable, CMP showed a creatinine of 4.87 which is increased from 2.92 from his last visit. Ferritin elevated to 554 CRP elevated to 66.3. Hospitalist service was called to admit the patient. D2 hospital stay. Patient was seen at bedside. He is on HFNC. He is eating and drinking and reports that his breathing is much better. However he does get SOB when he moves around. He is afebrile. No diarrhea, no chest pain. He will receive remdesivir today. Reason For Visit: COVID,PNEUMONIA Physical Exam Vital Signs: Temp Pulse Resp BP Pulse Ox 97.4 F 85 28 H 152/83 H 91 L 03/10/20 08:56 03/10/20 07:34 03/10/20 03:40 03/10/20 07:34 03/10/20 07:34 Intake & Output 03/09/20 03/10/20 03/11/20 06:59 06:59 06:59 Intake Total 2761 1000 Balance 2761 1000 Weight 77.1 kg 77.1 kg General appearance: PRESENT: cooperative, mild distress Head exam: PRESENT: atraumatic, normocephalic Eye exam: PRESENT: EOMI, PERRLA Mouth exam: PRESENT: moist Neck exam: PRESENT: full ROM Respiratory exam: PRESENT: crackles, symmetrical, unlabored Cardiovascular exam: PRESENT: RRR, +S1, +S2 Vascular exam: PRESENT: normal capillary refill GI/Abdominal exam: PRESENT: normal bowel sounds, soft. ABSENT: rebound, tenderness Extremities exam: PRESENT: full ROM Musculoskeletal exam: PRESENT: full ROM Neurological exam: PRESENT: alert, awake, oriented to person, oriented to place, oriented to time, oriented to situation Psychiatric exam: PRESENT: normal mood Results Laboratory Results: 03/10/20 04:40 03/10/20 04:40 03/09/20 03/09/20 03/09/20 12:12 12:12 12:12 WBC 10.1 RBC 4.48 Hgb 11.6 L Hct 34.7 L MCV 77 L MCH 25.8 L MCHC 33.3 RDW 13.9 Plt Count 206 Seg Neutrophils % Not Reportable Retic Count (auto) Carbonic Acid HCO3/H2CO3 Ratio ABG pH ABG pCO2 ABG pO2 ABG HCO3 ABG O2 Saturation ABG Base Excess VBG pH VBG pCO2 VBG HCO3 VBG Base Excess FiO2 Sodium 139.2 Potassium 4.8 Chloride 108 H Carbon Dioxide 14 L Anion Gap 17 BUN 84 H Creatinine 4.87 H Est GFR ( Amer) 15 L Glucose 145 H Calcium 9.6 Magnesium 1.9 Iron TIBC Ferritin 554.00 H Total Bilirubin 1.1 AST 63 H Alkaline Phosphatase 721 H C-Reactive Protein 66.3 H Total Protein 7.9 Albumin 3.9 Vitamin B12 Folate Urine Color Urine Appearance Urine pH Ur Specific [place] Urine Protein Urine Glucose (UA) Urine Ketones Urine Blood Urine Nitrite Ur Leukocyte Esterase Urine WBC (Auto) Urine RBC (Auto) Blood Type 03/09/20 03/09/20 03/09/20 13: 17:45 17:50 WBC RBC Hgb Hct MCV MCH MCHC RDW Plt Count Seg Neutrophils % Retic Count (auto) Carbonic Acid 0.82 L HCO3/H2CO3 Ratio 18:1 ABG pH 7.35 ABG pCO2 27.4 L ABG pO2 88.6 ABG HCO3 14.9 L ABG O2 Saturation 96.6 ABG Base Excess -9.2 VBG pH 7.32 VBG pCO2 23.3 L VBG HCO3 11.7 L VBG Base Excess -11.7 FiO2 100% Sodium Potassium Chloride Carbon Dioxide Anion Gap BUN Creatinine Est GFR ( Amer) Glucose Calcium Magnesium Iron TIBC Ferritin Total Bilirubin AST Alkaline Phosphatase C-Reactive Protein Total Protein Albumin Vitamin B12 Folate Urine Color YELLOW Urine Appearance CLOUDY Urine pH 5.0 Ur Specific [place] 1.014 Urine Protein 100 H Urine Glucose (UA) NEGATIVE Urine Ketones NEGATIVE Urine Blood SMALL H Urine Nitrite NEGATIVE Ur Leukocyte Esterase NEGATIVE Urine WBC (Auto) 2 Urine RBC (Auto) 1 Blood Type 03/09/20 03/09/20 03/09/20 18:07 18:07 18:07 WBC RBC Hgb Hct MCV MCH MCHC RDW Plt Count Seg Neutrophils % Retic Count (auto) 0.85 Carbonic Acid HCO3/H2CO3 Ratio ABG pH ABG pCO2 ABG pO2 ABG HCO3 ABG O2 Saturation ABG Base Excess VBG pH VBG pCO2 VBG HCO3 VBG Base Excess FiO2 Sodium Potassium Chloride Carbon Dioxide Anion Gap BUN Creatinine Est GFR ( Amer) Glucose Calcium Magnesium Iron < 10.1 L TIBC 222 L Ferritin 530.00 H Total Bilirubin AST Alkaline Phosphatase C-Reactive Protein Total Protein Albumin Vitamin B12 > 1000.0 H Folate 9.57 Urine Color Urine Appearance Urine pH Ur Specific [place] Urine Protein Urine Glucose (UA) Urine Ketones Urine Blood Urine Nitrite Ur Leukocyte Esterase Urine WBC (Auto) Urine RBC (Auto) Blood Type O POSITIVE 03/10/20 03/10/20 04:40 04:40 WBC 9.4 RBC 3.97 L Hgb 10.3 L Hct 30.8 L MCV 78 L MCH 26.0 L MCHC 33.5 RDW 14.2 H Plt Count 171 Seg Neutrophils % Not Reportable Retic Count (auto) Carbonic Acid HCO3/H2CO3 Ratio ABG pH ABG pCO2 ABG pO2 ABG HCO3 ABG O2 Saturation ABG Base Excess VBG pH VBG pCO2 VBG HCO3 VBG Base Excess FiO2 Sodium 140.3 Potassium 4.8 Chloride 113 H Carbon Dioxide 13 L Anion Gap 14 BUN 83 H Creatinine 3.48 H Est GFR ( Amer) 23 L Glucose 136 H Calcium 9.3 Magnesium Iron TIBC Ferritin Total Bilirubin 0.6 AST 52 Alkaline Phosphatase 546 H C-Reactive Protein Total Protein 7.0 Albumin 3.4 L Vitamin B12 Folate Urine Color Urine Appearance Urine pH Ur Specific [place] Urine Protein Urine Glucose (UA) Urine Ketones Urine Blood Urine Nitrite Ur Leukocyte Esterase Urine WBC (Auto) Urine RBC (Auto) Blood Type 03/09/20 03/09/20 03/09/20 12:12 12:12 12:12 Creatine Kinase 45 L Troponin I 0.063 NT-Pro-B Natriuret Pep 155 H 03/09/20 03/10/20 03/10/20 21:20 04:40 10:40 Creatine Kinase Troponin I 0.259 0.162 0.124 NT-Pro-B Natriuret Pep Impressions: Chest X-Ray 03/09/20 12:14 IMPRESSION: Bibasilar alveolar airspace disease either pneumonia or edema. Fairly marked gastric distention. Assessment and Plan - Diagnosis (1) Acute hypoxemic respiratory failure due to COVID-19 Is this a current diagnosis for this admission?: Yes Plan: -Tested positive for Covid 5 days prior to admission -O2 sat 80% on room air as noted by EMS -on HFNC saturating 96% -Chest x-ray showing bilateral airspace opacities consistent with pneumonia -Continue oxygen support. (2) Pneumonia due to COVID-19 virus Is this a current diagnosis for this admission?: Yes Plan: -Tested positive for Covid pneumonia 5 days prior to admission -Chest x-ray as above -Started on remdesivir and convalescent plasma -DuoNeb as needed -Vitamin C, vitamin D, zinc -Continue oxygen support via high flow nasal cannula -Patient is full code (3) Acute kidney injury superimposed on chronic kidney disease Is this a current diagnosis for this admission?: Yes Plan: -Has a history of chronic kidney disease and kidney stone with nephrostomy tube placement back in 2019 -Crea 4.8>3.4 Baseline creatinine 2.6 now -I suspect this is around his baseline creatinine -Fena 0.4% consistent with pre renal - continue IV fluids for now (4) Elevated troponin I level Is this a current diagnosis for this admission?: Yes Plan: -Troponin 0.162>0.124 -EKG sinus rhythm no ST elevation -Likely secondary to demand ischemia from hypoxia (5) Microcytic anemia Is this a current diagnosis for this admission?: Yes Plan: Hemoglobin 11.6, MCV 77 - iron studies consistent with AOCD (6) History of kidney stones Is this a current diagnosis for this admission?: Yes Plan: -Back in 2019 had nephrostomy stent which was subsequently removed His CKD may be secondary to this - Plan Summary Summary: Osito is a 49-year-old male no significant past medical history who came in due to progressive shortness of breath. Chest x-ray findings consistent with Covid pneumonia. He is currently on HFNC saturating 96%. He will be started on remdesivir, convalescent plasma, dexamethasone. - Time Time Spent with patient: 25-34 minutes Medications reviewed and adjusted accordingly: Yes Anticipated Discharge Disposition: Home, Self Care Anticipated Discharge Timeframe: to be determined
[2020-03-10] MEDS: MELATONIN 5 MG TABLET PO SCH (21:49)
[2020-03-10] MEDS: REMDESIVIR 100 MG in NORMAL SALINE 250 ML IV SCH (21:49)
[2020-03-11] MEDS ORDERED: MORPHINE SULFATE 10 MG/ML INJ IV ONE ×2 (00:46→18:00)
[2020-03-11] MEDS ORDERED: MORPHINE SULFATE 10 MG/ML INJ ONE ×2 (00:48→16:48)
[2020-03-11] MEDS: NORMAL SALINE 1000 ML 1,000 ML IV PRN ×2 (05:12→14:48)
[2020-03-11 06:22] LABS: HEMOGLOBIN 10.1 g/dL (13.5-17.0); MEAN CORPUSCULAR HEMOGLOBIN 25.9 pg (27.0-33.4); MEAN CORPUSCULAR HGB CONC 33.6 g/dL (32.0-36.0); MEAN CORPUSCULAR VOLUME 77 fl (80-97); PLATELET COUNT 207 10^3/uL (150-450); RED BLOOD COUNT 3.89 10^6/uL (4.35-5.55); RED CELL DISTRIBUTION WIDTH 14.2 % (11.5-14.0); WHITE BLOOD COUNT 9.2 10^3/uL (4.0-10.5)
[2020-03-11 06:41] LABS: ALKALINE PHOSPHATASE 487 U/L (38-126); ANION GAP 11 (5-19); ASPARTATE AMINO TRANSFERASE 47 U/L (17-59); BILIRUBIN,DIRECT 0.6 mg/dL (0.0-0.4); BILIRUBIN,TOTAL 0.7 mg/dL (0.2-1.3); BLOOD UREA NITROGEN 72 mg/dL (7-20); CALCIUM 9.2 mg/dL (8.4-10.2); CARBON DIOXIDE 16 mmol/L (22-30); CHLORIDE 117 mmol/L (98-107); GLUCOSE 130 mg/dL (75-110); POTASSIUM 5.1 mmol/L (3.6-5.0); TOTAL PROTEIN 6.4 g/dL (6.3-8.2)
[2020-03-11 07:17] LABS: ABSOLUTE LYMPHOCYTES# (MANUAL) 0.5 10^3/uL (0.5-4.7); ABSOLUTE MONOCYTES # (MANUAL) 0.5 10^3/uL (0.1-1.4); BASOPHILS % (MANUAL) 0 % (0-2); EOSINOPHILS % (MANUAL) 0 % (0-6); LYMPHOCYTES % (MANUAL) 5 % (13-45); MONOCYTES % (MANUAL) 5 % (3-13); PLATELET COMMENT ADEQUATE; SEGMENTED NEUTROPHILS % (MAN) 90 % (42-78); TOTAL CELLS COUNTED 100
[2020-03-11 07:18] LABS: ANISOCYTOSIS SLIGHT
[2020-03-11 07:21] LABS: OVALOCYTES SLIGHT; TEAR DROP CELLS SLIGHT
[2020-03-11 07:22] LABS: HYPOCHROMASIA 1+
[2020-03-11] MEDS: ZINC SULFATE 220 MG CAPSULE PO SCH (10:26)
[2020-03-11] MEDS: FAMOTIDINE 20 MG TABLET PO SCH ×2 (10:26→21:10)
[2020-03-11] MEDS: ASCORBIC ACID 500 MG TABLET PO SCH ×2 (10:26→17:49)
[2020-03-11] MEDS: DEXAMETHASONE SOD PHOSPHATE INJ 4 MG/1 ML VIAL IV SCH (10:26)
[2020-03-11] MEDS: ENOXAPARIN SODIUM INJ 40 MG/0.4 ML DISP.SYRIN SUBCUT SCH (10:26)
[2020-03-11] MEDS: CHOLECALCIFEROL (D3) 1,000 UNIT (25 MCG) TABLET PO SCH (10:27)
[2020-03-11] MEDS: MORPHINE SULFATE 10 MG/ML INJ IV PRN ×2 (11:51→23:44)
[2020-03-11] MEDS ORDERED: DEXTROSE 5%-NORMAL SALINE 1,000 ML IV PRN (12:27)
--- NOTE | 2020-03-11 12:30 | PDOC PROGRESS REPORT ---
Subjective Date:: 03/11/20 Subjective:: TERENCE HINTON JR is a 49 year old male, no significant PMH who came in the ED to day due to progressive SOB. Patient was seen in the emergency room on March 03, 2020 with complaints of cough fever and congestion 5 days duration. Chest x- ray was negative. He was noted to have elevated creatinine during that visit. He was advised to be admitted but he insisted he wanted to go home. He was tested for Covid and the result came back positive the next day. At home he continued to have cough congestion with progressive shortness of breath which acutely worsened today hence he came to the ED. He was noted to have an O2 sat of 80% in the ambulance on the way here. In the ED blood pressure 129/60 heart rate of 75 respiratory rate of 32 O2 sat 96% on CPAP. He was placed on BiPAP in the ED continue to have saturation of 100%. Repeat chest x-ray showed bibasilar alveolar airspace disease. CBC unremarkable, CMP showed a creatinine of 4.87 which is increased from 2.92 from his last visit. Ferritin elevated to 554 CRP elevated to 66.3. Hospitalist service was called to admit the patient. D2 hospital stay. Patient was seen at bedside. He is on HFNC. He is eating and drinking and reports that his breathing is much better. However he does get SOB when he moves around. He is afebrile. No diarrhea, no chest pain. He will receive remdesivir today. D3 hospital stay. Patient was seen and examined at bedside. Reports breathing much better today. Appetite is good, he had a bowel movement today. He is still on 100%, 60L HFNC saturating 93%. I was able to speak to his Emilee, with the patients permission and was able to update her of her husbands conditi on. He is on D2 of remdesivir. Reason For Visit: COVID,PNEUMONIA Physical Exam Vital Signs: Temp Pulse Resp BP Pulse Ox 98.2 F 76 32 H 157/85 H 95 03/11/20 08:55 03/11/20 07:00 03/11/20 03:43 03/11/20 03:43 03/11/20 08:00 Intake & Output 03/10/20 03/11/20 03/12/20 06:59 06:59 06:59 Intake Total 2761 4118 Output Total 9194 Balance 2761 1768 Weight 77.1 kg 73.2 kg General appearance: PRESENT: no acute distress, cooperative Head exam: PRESENT: atraumatic Eye exam: PRESENT: EOMI, PERRLA Mouth exam: PRESENT: moist Neck exam: PRESENT: full ROM Respiratory exam: PRESENT: clear to auscultation ernestine, symmetrical, unlabored Cardiovascular exam: PRESENT: RRR, +S1, +S2 GI/Abdominal exam: PRESENT: normal bowel sounds, soft. ABSENT: rebound, tenderness Extremities exam: PRESENT: full ROM Musculoskeletal exam: PRESENT: full ROM Neurological exam: PRESENT: alert, awake, oriented to person, oriented to place, oriented to time, oriented to situation Psychiatric exam: PRESENT: normal mood Skin exam: PRESENT: normal color Results Laboratory Results: 03/11/20 05:45 03/11/20 05:45 03/11/20 03/11/20 05:45 05:45 WBC 9.2 RBC 3.89 L Hgb 10.1 L Hct 30.0 L MCV 77 L MCH 25.9 L MCHC 33.6 RDW 14.2 H Plt Count 207 Seg Neutrophils % Not Reportable Sodium 143.9 Potassium 5.1 H Chloride 117 H Carbon Dioxide 16 L Anion Gap 11 BUN 72 H Creatinine 2.34 H Est GFR ( Amer) 36 L Glucose 130 H Calcium 9.2 Total Bilirubin 0.7 AST 47 Alkaline Phosphatase 487 H Total Protein 6.4 Albumin 3.0 L 03/09/20 03/09/20 03/09/20 12:12 12:12 12:12 Creatine Kinase 45 L Troponin I 0.063 NT-Pro-B Natriuret Pep 155 H 03/09/20 03/10/20 03/10/20 21:20 04:40 10:40 Creatine Kinase Troponin I 0.259 0.162 0.124 NT-Pro-B Natriuret Pep Impressions: Chest X-Ray 03/09/20 12:14 IMPRESSION: Bibasilar alveolar airspace disease either pneumonia or edema. Fairly marked gastric distention. Assessment and Plan - Diagnosis (1) Acute hypoxemic respiratory failure due to COVID-19 Is this a current diagnosis for this admission?: Yes Plan: -Tested positive for Covid 5 days prior to admission -O2 sat 80% on room air as noted by EMS -on HFNC 60L, 100% FIO2 saturating 96% -Chest x-ray showing bilateral airspace opacities consistent with pneumonia -Continue oxygen support. (2) Pneumonia due to COVID-19 virus Is this a current diagnosis for this admission?: Yes Plan: -Tested positive for Covid pneumonia 5 days prior to admission -Chest x-ray as above -on remdesivir d2 - received convalescent plasma 1 dose -DuoNeb as needed -Vitamin C, vitamin D, zinc -Continue oxygen support via high flow nasal cannula -Patient is full code (3) Acute kidney injury superimposed on chronic kidney disease Is this a current diagnosis for this admission?: Yes Plan: -Has a history of chronic kidney disease and kidney stone with nephrostomy tube placement back in 2019 -Crea 4.8>3.4>2.3 Baseline creatinine 2.6 now -I suspect this is around his baseline creatinine -Fena 0.4% consistent with pre renal - continue IV fluids for now (4) Elevated troponin I level Is this a current diagnosis for this admission?: Yes Plan: -Troponin 0.162>0.124 -EKG sinus rhythm no ST elevation -Likely secondary to demand ischemia from hypoxia (5) Microcytic anemia Is this a current diagnosis for this admission?: Yes Plan: Hemoglobin 11.6, MCV 77 - iron studies consistent with AOCD (6) History of kidney stones Is this a current diagnosis for this admission?: Yes - Plan Summary Summary: . - Time Time Spent with patient: 25-34 minutes Medications reviewed and adjusted accordingly: Yes Anticipated Discharge Disposition: Home, Self Care Anticipated Discharge Timeframe: to be determined
[2020-03-11] MEDS: MELATONIN 5 MG TABLET PO SCH (21:10)
[2020-03-11] MEDS: REMDESIVIR 100 MG in NORMAL SALINE 250 ML IV SCH (21:11)
[2020-03-12] MEDS: NORMAL SALINE 1000 ML 1,000 ML IV PRN (03:28)
[2020-03-12 07:59] LABS: HEMOGLOBIN 10.7 g/dL (13.5-17.0); MEAN CORPUSCULAR HEMOGLOBIN 26.1 pg (27.0-33.4); MEAN CORPUSCULAR HGB CONC 33.4 g/dL (32.0-36.0); MEAN CORPUSCULAR VOLUME 78 fl (80-97); PLATELET COUNT 213 10^3/uL (150-450); WHITE BLOOD COUNT 10.7 10^3/uL (4.0-10.5)
[2020-03-12 08:09] LABS: ALBUMIN 2.8 g/dL (3.5-5.0); ALKALINE PHOSPHATASE 481 U/L (38-126); ANION GAP 11 (5-19); ASPARTATE AMINO TRANSFERASE 32 U/L (17-59); BILIRUBIN,DIRECT 0.5 mg/dL (0.0-0.4); BILIRUBIN,TOTAL 0.7 mg/dL (0.2-1.3); BLOOD UREA NITROGEN 65 mg/dL (7-20); CALCIUM 8.9 mg/dL (8.4-10.2); CARBON DIOXIDE 15 mmol/L (22-30); CHLORIDE 117 mmol/L (98-107); GLUCOSE 119 mg/dL (75-110); POTASSIUM 5.1 mmol/L (3.6-5.0); TOTAL PROTEIN 6.2 g/dL (6.3-8.2)
[2020-03-12] MEDS: MORPHINE SULFATE 10 MG/ML INJ IV PRN (08:44)
[2020-03-12 08:54] LABS: ABSOLUTE LYMPHOCYTES# (MANUAL) 0.3 10^3/uL (0.5-4.7); ABSOLUTE MONOCYTES # (MANUAL) 0.9 10^3/uL (0.1-1.4); BASOPHILS % (MANUAL) 0 % (0-2); EOSINOPHILS % (MANUAL) 0 % (0-6); LYMPHOCYTES % (MANUAL) 3 % (13-45); METAMYELOCYTES % (MANUAL) 1 % (0-1); MONOCYTES % (MANUAL) 8 % (3-13); SEGMENTED NEUTROPHILS % (MAN) 88 % (42-78); TOTAL CELLS COUNTED 100
[2020-03-12 08:55] LABS: POLYCHROMASIA SLIGHT
[2020-03-12 08:56] LABS: ANISOCYTOSIS SLIGHT; PLATELET COMMENT ADEQUATE; POIKILOCYTOSIS SLIGHT; TEAR DROP CELLS SLIGHT
--- NOTE | 2020-03-12 09:43 | RADIOLOGY REPORT (SQ) ---
EXAM DESCRIPTION: CHEST SINGLE VIEW IMAGES COMPLETED DATE/TIME: 03/12/2020 9:27 am REASON FOR STUDY: decreased saturations COMPARISON: AP view of the chest from 03/09/2020. EXAM PARAMETERS: NUMBER OF VIEWS: One view. TECHNIQUE: An AP view of the chest was obtained. RADIATION DOSE: NA LIMITATIONS: None. FINDINGS: LUNGS AND PLEURA: Increased diffuse bilateral parenchymal opacities. The costophrenic sul ci are blunted. There is no pneumothorax. MEDIASTINUM AND HILAR STRUCTURES: The hilar contours are indistinct. HEART AND VASCULAR STRUCTURES: Stable cardiac silhouette. BONES: No acute findings. HARDWARE: None in the chest. OTHER: No other finding. IMPRESSION: Increased diffuse bilateral parenchymal opacities associated with blunting of the costop hrenic sulci. Differential considerations include worsening pulmonary edema or multifocal pneumonia. TECHNICAL DOCUMENTATION: JOB ID: [id number] 2010 [employer]- All Rights Reserved Reading location - IP/workstation name: [email or web address]
[2020-03-12] MEDS: CHOLECALCIFEROL (D3) 1,000 UNIT (25 MCG) TABLET PO SCH (10:06)
[2020-03-12] MEDS: ZINC SULFATE 220 MG CAPSULE PO SCH (10:06)
[2020-03-12] MEDS: DEXAMETHASONE SOD PHOSPHATE INJ 4 MG/1 ML VIAL IV SCH (10:06)
[2020-03-12] MEDS: FAMOTIDINE 20 MG TABLET PO SCH ×2 (10:06→22:14)
[2020-03-12] MEDS: ASCORBIC ACID 500 MG TABLET PO SCH ×2 (10:06→17:25)
[2020-03-12] MEDS: ENOXAPARIN SODIUM INJ 40 MG/0.4 ML DISP.SYRIN SUBCUT SCH (10:06)
[2020-03-12] MEDS ORDERED: HALOPERIDOL LACTATE INJ 5 MG/1 ML VIAL IV ONE (11:45)
[2020-03-12] MEDS ORDERED: FUROSEMIDE INJ/PF 40 MG/4 ML SDV IV ONE (13:15)
--- NOTE | 2020-03-12 13:15 | PDOC PROGRESS REPORT ---
Subjective Date:: 03/12/20 Subjective:: THADDEUS HINTON JR is a 49 year old male, no significant PMH who came in the ED to day due to progressive SOB. Patient was seen in the emergency room on March 03, 2020 with complaints of cough fever and congestion 5 days duration. Chest x- ray was negative. He was noted to have elevated creatinine during that visit. He was advised to be admitted but he insisted he wanted to go home. He was tested for Covid and the result came back positive the next day. At home he continued to have cough congestion with progressive shortness of breath which acutely worsened today hence he came to the ED. He was noted to have an O2 sat of 80% in the ambulance on the way here. In the ED blood pressure 129/60 heart rate of 75 respiratory rate of 32 O2 sat 96% on CPAP. He was placed on BiPAP in the ED continue to have saturation of 100%. Repeat chest x-ray showed bibasilar alveolar airspace disease. CBC unremarkable, CMP showed a creatinine of 4.87 which is increased from 2.92 from his last visit. Ferritin elevated to 554 CRP elevated to 66.3. Hospitalist service was called to admit the patient. D2 hospital stay. Patient was seen at bedside. He is on HFNC. He is eating and drinking and reports that his breathing is much better. However he does get SOB when he moves around. He is afebrile. No diarrhea, no chest pain. He will receive remdesivir today. D3 hospital stay. Patient was seen and examined at bedside. Reports breathing much better today. Appetite is good, he had a bowel movement today. He is still on 100%, 60L HFNC saturating 93%. I was able to speak to his Emilee, with the patients permission and was able to update her of her husbands conditi on. He is on D2 of remdesivir. D4 hospital stay. Patient was seen and examined at bedside. He desaturated to about 50% when he again tried to move and stand up. He had to be switched to bipap. He has episodes of anxiety attack related to dyspnea hence I have started him on morphine PRN to help with his anxiety and dyspnea. Repeat CXR showed worsening pneumonia adn edema. I have stopped his IV fluids and gave him 1 dose of lasix. He tried to take off his bipap mask and had to be given haldol to calm him down. I have spoken to his Emilee about how he's not doing so well. She understands the situation. Reason For Visit: COVID,PNEUMONIA Physical Exam Vital Signs: Temp Pulse Resp BP Pulse Ox 98.2 F 91 22 H 164/93 H 93 03/12/20 11:07 03/12/20 11:07 03/12/20 11:07 03/12/20 11:07 03/12/20 11:07 Intake & Output 03/11/20 03/12/20 03/13/20 06:59 06:59 06:59 Intake Total 4118 2960 Output Total 2350 4075 Balance 1768 -1115 Weight 73.2 kg 71.2 kg General appearance: PRESENT: severe distress Head exam: PRESENT: atraumatic, normocephalic Eye exam: PRESENT: EOMI, PERRLA Mouth exam: PRESENT: moist Neck exam: PRESENT: full ROM Respiratory exam: PRESENT: rales, rhonchi, symmetrical, tachypnea Cardiovascular exam: PRESENT: +S1, +S2, tachycardia. ABSENT: gallop, systolic murmur Pulses: PRESENT: +2 pedal pulses bilateral GI/Abdominal exam: PRESENT: normal bowel sounds, soft. ABSENT: rebound, tenderness Extremities exam: PRESENT: full ROM Musculoskeletal exam: PRESENT: full ROM Neurological exam: PRESENT: alert, awake, oriented to person, oriented to place, oriented to time, oriented to situation Psychiatric exam: PRESENT: normal mood Skin exam: PRESENT: normal color Results Laboratory Results: 03/12/20 06:44 03/12/20 06:44 03/12/20 03/12/20 06:44 06:44 WBC 10.7 H RBC 4.10 L Hgb 10.7 L Hct 32.0 L MCV 78 L MCH 26.1 L MCHC 33.4 RDW 14.0 Plt Count 213 Seg Neutrophils % Not Reportable Sodium 143.4 Potassium 5.1 H Chloride 117 H Carbon Dioxide 15 L Anion Gap 11 BUN 65 H Creatinine 2.01 H Est GFR ( Amer) 43 L Glucose 119 H Calcium 8.9 Total Bilirubin 0.7 AST 32 Alkaline Phosphatase 481 H Total Protein 6.2 L Albumin 2.8 L 03/09/20 03/09/20 03/09/20 12:12 12:12 12:12 Creatine Kinase 45 L Troponin I 0.063 NT-Pro-B Natriuret Pep 155 H 03/09/20 03/10/20 03/10/20 21:20 04:40 10:40 Creatine Kinase Troponin I 0.259 0.162 0.124 NT-Pro-B Natriuret Pep Impressions: Chest X-Ray 03/12/20 00:00 IMPRESSION: Increased diffuse bilateral parenchymal opacities associated with blunting of the costophrenic sulci. Differential considerations include worsening pulmonary edema or multifocal pneumonia. Assessment and Plan - Diagnosis (1) Acute hypoxemic respiratory failure due to COVID-19 Is this a current diagnosis for this admission?: Yes Plan: -Tested positive for Covid 5 days prior to admission -O2 sat 80% on room air as noted by EMS - worsening infiltrates on repeat CXR - now placed on bipap instead of HFNC -PRN morphine and ativan. - 1 dose of lasix 40 mg IV given (2) Pneumonia due to COVID-19 virus Is this a current diagnosis for this admission?: Yes Plan: -Tested positive for Covid pneumonia 5 days prior to admission -repeat CXR with worsening infiltrates -on remdesivir d3 -received convalescent plasma 1 dose -dexa 6 mg IV daily -I have stopped his abx. Blood culture has been negative -DuoNeb as needed -Vitamin C, vitamin D, zinc -Patient is full code (3) Acute kidney injury superimposed on chronic kidney disease Is this a current diagnosis for this admission?: Yes Plan: -Has a history of chronic kidney disease and kidney stone with nephrostomy tube placement back in 2019 -Crea 4.8>3.4>2.3>2.01 Baseline creatinine 2.6 now -I suspect this is around his baseline creatinine -Fena 0.4% consistent with pre renal -IV fluids stopped (4) Elevated troponin I level Is this a current diagnosis for this admission?: Yes Plan: -Troponin 0.162>0.124 -EKG sinus rhythm no ST elevation -Likely secondary to demand ischemia from hypoxia (5) Microcytic anemia Is this a current diagnosis for this admission?: Yes Plan: Hemoglobin 11.6, MCV 77 - iron studies consistent with AOCD (6) History of kidney stones Is this a current diagnosis for this admission?: Yes Plan: -Back in 2019 had nephrostomy stent which was subsequently removed His CKD may be secondary to this - Plan Summary Summary: Thaddeus Hinton is a 49/m diagnosed with COVID pneumonia last 2019. he was seen at [facility] and was dvised to be admitted however he decided to leave AMA. He cam back due to progressive SOB 1 week after. CXR showed worsening pneumonia. he was admitted and was initialy doing well on HFNC 60L, 100% FIO2. He was started on remdesivir, given plasma and steroids. received several days of abx that I stopped today since his Blood culture have been negative so far. Today he kept desaturating to 50% and had to be placed on bipap. He is becoming more tachypneic and episodes of agitation I have started him on morphine PRN and also had to be given 1 dose of Haldol. His is updated about his current medical condition. - Time Time Spent with patient: 35 or more minutes Medications reviewed and adjusted accordingly: Yes Anticipated Discharge Disposition: Home, Self Care Anticipated Discharge Timeframe: to be dete
[2020-03-12] MEDS: ENOXAPARIN SODIUM INJ 80 MG/0.8 ML DISP.SYRIN SUBCUT SCH (17:25)
--- NOTE | 2020-03-12 19:14 | RADIOLOGY REPORT (SQ) ---
EXAM DESCRIPTION: VENOUS BILATERAL LOWER IMAGES COMPLETED DATE/TIME: 03/12/2020 6:54 pm REASON FOR STUDY: elevated d dimer COMPARISON: None. TECHNIQUE: Dynamic and static lopez scale and color images acquired of both lower extremity venous sy stems. Selected spectral images acquired with additional compression and augmentation maneuvers. Imag es stored on PACS. LIMITATIONS: None. FINDINGS: RIGHT LEG COMMON FEMORAL AND FEMORAL: Normal phasicity, compression and augmentation. No visualized echogenic m aterial on lopez scale. No defects on color images. POPLITEAL: Normal compression and augmentation. No visualized echogenic material on lopez scale. No de fects on color images. CALF VESSELS: Normal compression and augmentation. No visualized echogenic material on lopez scale. No defects on color image. GSV AND SSV: Normal compression. No visualized echogenic material on lopez scale. No defects on color images. ANY DEEP VENOUS INSUFFICIENCY: Not evaluated. ANY EVIDENCE OF POPLITEAL CYST: No. OTHER: No other significant finding. LEFT LEG COMMON FEMORAL AND FEMORAL: Normal phasicity, compression and augmentation. No visualized echogenic m aterial on lopez scale. No defects on color images. POPLITEAL: Normal compression and augmentation. No visualized echogenic material on lopez scale. No de fects on color images. CALF VESSELS: Occlusive acute thrombus is suggested within the proximal posterior tibial vein. No e vidence of compressibility. The remaining calf vessels demonstrate normal compression and augmentation. No visualized echogenic m aterial on lopez scale. No defects on color images. GSV AND SSV: Normal compression. No visualized echogenic material on lopez scale. No defects on color images. ANY DEEP VENOUS INSUFFICIENCY: Not evaluated. ANY EVIDENCE POPLITEAL CYST: No. OTHER: No other significant finding. IMPRESSION: 1. Positive examination on the left. Acute occlusive thrombus within the left posterio r tibial vein. 2. NO EVIDENCE DVT OR SVT IN RIGHT LEG. COMMENT: 1. The results of this examination were given to the nurse at 18:40 hours. TECHNICAL DOCUMENTATION: JOB ID: [id number] 2010 [employer]- All Rights Reserved Reading location - IP/workstation name: [email or web address]
[2020-03-12] MEDS: MELATONIN 5 MG TABLET PO SCH (22:14)
[2020-03-12] MEDS: REMDESIVIR 100 MG in NORMAL SALINE 250 ML IV SCH (22:14)
[2020-03-13] MEDS: CHOLECALCIFEROL (D3) 1,000 UNIT (25 MCG) TABLET PO SCH (10:25)
[2020-03-13] MEDS: ZINC SULFATE 220 MG CAPSULE PO SCH (10:25)
[2020-03-13] MEDS: DEXAMETHASONE SOD PHOSPHATE INJ 4 MG/1 ML VIAL IV SCH (10:25)
[2020-03-13] MEDS: ASCORBIC ACID 500 MG TABLET PO SCH (10:25)
[2020-03-13] MEDS: FAMOTIDINE 20 MG TABLET PO SCH ×2 (10:25→22:23)
[2020-03-13] MEDS: ENOXAPARIN SODIUM INJ 80 MG/0.8 ML DISP.SYRIN SUBCUT SCH ×2 (10:26→22:23)
--- NOTE | 2020-03-13 12:16 | PDOC PROGRESS REPORT ---
Subjective Date:: 03/13/20 Subjective:: TERENCE HINTON JR is a 49 year old male, no significant PMH who came in the ED to day due to progressive SOB. Patient was seen in the emergency room on March 03, 2020 with complaints of cough fever and congestion 5 days duration. Chest x- ray was negative. He was noted to have elevated creatinine during that visit. He was advised to be admitted but he insisted he wanted to go home. He was tested for Covid and the result came back positive the next day. At home he continued to have cough congestion with progressive shortness of breath which acutely worsened today hence he came to the ED. He was noted to have an O2 sat of 80% in the ambulance on the way here. In the ED blood pressure 129/60 heart rate of 75 respiratory rate of 32 O2 sat 96% on CPAP. He was placed on BiPAP in the ED continue to have saturation of 100%. Repeat chest x-ray showed bibasilar alveolar airspace disease. CBC unremarkable, CMP showed a creatinine of 4.87 which is increased from 2.92 from his last visit. Ferritin elevated to 554 CRP elevated to 66.3. Hospitalist service was called to admit the patient. D2 hospital stay. Patient was seen at bedside. He is on HFNC. He is eating and drinking and reports that his breathing is much better. However he does get SOB when he moves around. He is afebrile. No diarrhea, no chest pain. He will receive remdesivir today. D3 hospital stay. Patient was seen and examined at bedside. Reports breathing much better today. Appetite is good, he had a bowel movement today. He is still on 100%, 60L HFNC saturating 93%. I was able to speak to his Emilee, with the patients permission and was able to update her of her husbands conditi on. He is on D2 of remdesivir. D4 hospital stay. Patient was seen and examined at bedside. He desaturated to about 50% when he again tried to move and stand up. He had to be switched to bipap. He has episodes of anxiety attack related to dyspnea hence I have started him on morphine PRN to help with his anxiety and dyspnea. Repeat CXR showed worsening pneumonia adn edema. I have stopped his IV fluids and gave him 1 dose of lasix. He tried to take off his bipap mask and had to be given haldol to calm him down. I have spoken to his Emilee about how he's not doing so well. She understands the situation. D5 hospital stay. He was seen and examined at bedside. d dimer elevated yesterday and US lower ext showed a DVT, could not do a CTA because of kidney function. He was started on therapeutic lovenox. He is awake, alert and reports breathing much better on bipap. he is at 100% FIO2 sats 95%. He is off IV fluids due to congestion in the CXR. If he cannot be weaned off bipap soon, he will need a PICC line for nutrition. Reason For Visit: COVID,PNEUMONIA Physical Exam Vital Signs: Temp Pulse Resp BP Pulse Ox 97.8 F 91 36 H 139/92 H 100 03/13/20 08:53 03/13/20 08:53 03/13/20 08:53 03/13/20 08:53 03/13/20 08:53 Intake & Output 03/12/20 03/13/20 03/14/20 06:59 06:59 06:59 Intake Total 2960 1250 Output Total 4075 3200 650 Balance -1115 -1950 -650 Weight 71.2 kg 71.2 kg General appearance: PRESENT: cooperative, other - moderate distress Head exam: PRESENT: atraumatic, normocephalic Eye exam: PRESENT: EOMI, PERRLA Mouth exam: PRESENT: moist Respiratory exam: PRESENT: clear to auscultation ernestine, symmetrical, unlabored Cardiovascular exam: PRESENT: RRR, +S1, +S2 Pulses: PRESENT: +2 pedal pulses bilateral GI/Abdominal exam: PRESENT: normal bowel sounds, soft. ABSENT: rebound, tenderness Gentrourinary exam: PRESENT: indwelling catheter Extremities exam: PRESENT: full ROM Musculoskeletal exam: PRESENT: full ROM Neurological exam: PRESENT: alert, awake, oriented to person, oriented to place, oriented to time, oriented to situation Skin exam: PRESENT: normal color Results Laboratory Results: 03/12/20 06:44 03/12/20 06:44 03/09/20 03/09/20 03/09/20 12:12 12:12 12:12 Creatine Kinase 45 L Troponin I 0.063 NT-Pro-B Natriuret Pep 155 H 03/09/20 03/10/20 03/10/20 21:20 04:40 10:40 Creatine Kinase Troponin I 0.259 0.162 0.124 NT-Pro-B Natriuret Pep Impressions: Chest X-Ray 03/12/20 00:00 IMPRESSION: Increased diffuse bilateral parenchymal opacities associated with blunting of the costophrenic sulci. Differential considerations include worsening pulmonary edema or multifocal pneumonia. Venous Doppler Study 03/12/20 00:00 IMPRESSION: 1. Positive examination on the left. Acute occlusive thrombus within the left posterior tibial vein. 2. NO EVIDENCE DVT OR SVT IN RIGHT LEG. Assessment and Plan - Diagnosis (1) Acute hypoxemic respiratory failure due to COVID-19 Is this a current diagnosis for this admission?: Yes Plan: -Tested positive for Covid 5 days prior to admission -O2 sat 80% on room air as noted by EMS - worsening infiltrates on repeat CXR - US doppler lower ext showed left tibial vein DVT - now placed on bipap 100% FIO2 sats 95% - PRN morphine for anxiety related to dyspnea (2) Pneumonia due to COVID-19 virus Is this a current diagnosis for this admission?: Yes Plan: -Tested positive for Covid pneumonia 5 days prior to admission -repeat CXR with worsening infiltrates -on remdesivir d4 -received convalescent plasma 1 dose -dexa 6 mg IV daily -I have stopped his abx. Blood culture has been negative -DuoNeb as needed -Vitamin C, vitamin D, zinc -Patient is full code (3) DVT (deep venous thrombosis) Qualifiers: DVT location: lower extremity Affected thrombotic vein of extremity: tibial Chronicity: acute Laterality: left Qualified Code(s): I82.442 - Acute embolism and thrombosis of left tibial vein Is this a current diagnosis for this admission?: Yes Plan: - D dimer >20 - unable to do a CTA due to renal function but US revealed a lower leg tibial vein DVT - started on therapeutic lovenox - will need AC after discharge 3-6 months (4) Acute kidney injury superimposed on chronic kidney disease Is this a current diagnosis for this admission?: Yes Plan: -Has a history of chronic kidney disease and kidney stone with nephrostomy tube placement back in 2019 -Crea 4.8>3.4>2.3>2.01 Baseline creatinine 2.6 now -I suspect this is around his baseline creatinine -Fena 0.4% consistent with pre renal -IV fluids stopped (5) Elevated troponin I level Is this a current diagnosis for this admission?: Yes Plan: -Troponin 0.162>0.124 -EKG sinus rhythm no ST elevation -Likely secondary to demand ischemia from hypoxia (6) Microcytic anemia Is this a current diagnosis for this admission?: Yes Plan: Hemoglobin 11.6, MCV 77 - iron studies consistent with AOCD (7) History of kidney stones Is this a current diagnosis for this admission?: Yes Plan: -Back in 2019 had nephrostomy stent which was subsequently removed His CKD may be secondary to this - Plan Summary Summary: - Time Time Spent with patient: 25-34 minutes Medications reviewed and adjusted accordingly: Yes Anticipated Discharge Disposition: Home, Self Care Anticipated Discharge Timeframe: TBD
[2020-03-13] MEDS: MORPHINE SULFATE 10 MG/ML INJ IV PRN (12:29)
[2020-03-13 12:52] LABS: APPEARANCE,URINE SLIGHTLY-CLOUDY; BILIRUBIN,URINE NEGATIVE (NEGATIVE); COLOR,URINE YELLOW; GLUCOSE, URINE NEGATIVE (NEGATIVE); KETONES,URINE NEGATIVE (NEGATIVE); LEUKOCYTE ESTERASE,URINE NEGATIVE (NEGATIVE); NITRITE,URINE NEGATIVE (NEGATIVE); PROTEIN,URINE >=500 mg/dL (NEGATIVE); URINE SPECIFIC GRAVITY 1.014; UROBILINOGEN,URINE NEGATIVE mg/dL (<2.0)
[2020-03-13] MEDS: MELATONIN 5 MG TABLET PO SCH (22:23)
[2020-03-13] MEDS: REMDESIVIR 100 MG in NORMAL SALINE 250 ML IV SCH (22:24)
[2020-03-14] MEDS: MORPHINE SULFATE 10 MG/ML INJ IV PRN ×2 (01:20→22:48)
[2020-03-14 06:06] LABS: HEMATOCRIT 39.4 % (37.9-51.0); HEMOGLOBIN 12.6 g/dL (13.5-17.0); MEAN CORPUSCULAR HEMOGLOBIN 25.5 pg (27.0-33.4); MEAN CORPUSCULAR VOLUME 80 fl (80-97); RED BLOOD COUNT 4.94 10^6/uL (4.35-5.55); WHITE BLOOD COUNT 20.1 10^3/uL (4.0-10.5)
[2020-03-14 06:07] LABS: MEAN CORPUSCULAR HGB CONC 31.9 g/dL (32.0-36.0); PLATELET COUNT 254 10^3/uL (150-450); RED CELL DISTRIBUTION WIDTH 14.4 % (11.5-14.0)
[2020-03-14] MEDS: DEXAMETHASONE SOD PHOSPHATE INJ 4 MG/1 ML VIAL IV SCH (10:30)
[2020-03-14] MEDS: ASCORBIC ACID 500 MG TABLET PO SCH ×2 (10:30→19:02)
[2020-03-14] MEDS: ENOXAPARIN SODIUM INJ 80 MG/0.8 ML DISP.SYRIN SUBCUT SCH ×2 (10:31→22:47)
[2020-03-14] MEDS: CHOLECALCIFEROL (D3) 1,000 UNIT (25 MCG) TABLET PO SCH (10:32)
[2020-03-14] MEDS: FAMOTIDINE 20 MG TABLET PO SCH ×2 (10:32→22:47)
[2020-03-14] MEDS: ZINC SULFATE 220 MG CAPSULE PO SCH (10:33)
--- NOTE | 2020-03-14 12:20 | PDOC PROGRESS REPORT ---
Subjective Date:: 03/14/20 Subjective:: Patient was admitted with acute respiratory failure and ultimately found to be C ovid positive. He is still hypoxemic. According to report he is more confused than his baseline. Patient also diagnosed with a low leg tibial vein DVT, [place] on CKD. He is still requiring oxygen FiO2 of 100% Reason For Visit: COVID,PNEUMONIA Physical Exam Vital Signs: Temp Pulse Resp BP Pulse Ox 97.7 F 97 20 123/83 96 03/14/20 08:01 03/14/20 09:42 03/14/20 09:42 03/14/20 08:01 03/14/20 09:42 Intake & Output 03/13/20 03/14/20 03/15/20 06:59 06:59 06:59 Intake Total 1250 350 Output Total 3200 2600 Balance -1950 -2250 Weight 71.2 kg 68.7 kg General appearance: PRESENT: no acute distress Head exam: PRESENT: atraumatic Respiratory exam: PRESENT: decreased breath sounds, rhonchi Cardiovascular exam: PRESENT: RRR, +S1, +S2 GI/Abdominal exam: PRESENT: normal bowel sounds, soft Rectal exam: PRESENT: deferred Neurological exam: PRESENT: alert, other - confused Results Laboratory Results: 03/14/20 04:35 03/12/20 06:44 03/13/20 03/14/20 12:10 04:35 WBC 20.1 H RBC 4.94 Hgb 12.6 L Hct 39.4 MCV 80 MCH 25.5 L MCHC 31.9 L RDW 14.4 H Plt Count 254 Urine Color YELLOW Urine Appearance SLIGHTLY-CLOUDY Urine pH 5.0 Ur Specific [place] 1.014 Urine Protein >=500 H Urine Glucose (UA) NEGATIVE Urine Ketones NEGATIVE Urine Blood SMALL H Urine Nitrite NEGATIVE Ur Leukocyte Esterase NEGATIVE Urine WBC (Auto) 2 Urine RBC (Auto) 3 03/09/20 03/09/20 03/09/20 12:12 12:12 12:12 Creatine Kinase 45 L Troponin I 0.063 NT-Pro-B Natriuret Pep 155 H 03/09/20 03/10/20 03/10/20 21:20 04:40 10:40 Creatine Kinase Troponin I 0.259 0.162 0.124 NT-Pro-B Natriuret Pep Impressions: Chest X-Ray 03/12/20 00:00 IMPRESSION: Increased diffuse bilateral parenchymal opacities associated with blunting of the costophrenic sulci. Differential considerations include worsening pulmonary edema or multifocal pneumonia. Venous Doppler Study 03/12/20 00:00 IMPRESSION: 1. Positive examination on the left. Acute occlusive thrombus within the left posterior tibial vein. 2. NO EVIDENCE DVT OR SVT IN RIGHT LEG. Assessment and Plan - Diagnosis (1) Acute hypoxemic respiratory failure due to COVID-19 Is this a current diagnosis for this admission?: Yes Plan: -Tested positive for Covid 5 days prior to admission -O2 sat 80% on room air as noted by EMS - worsening infiltrates on repeat CXR - US doppler lower ext showed left tibial vein DVT - now placed on bipap 100% FIO2 sats 95% - PRN morphine for anxiety related to dyspnea 03/14 we will continue with her current management. Continue with oxygen support and wean off as tolerated. (2) Acute kidney injury superimposed on chronic kidney disease Is this a current diagnosis for this admission?: Yes Plan: -Has a history of chronic kidney disease and kidney stone with nephrostomy tube placement back in 2019 -Crea 4.8>3.4>2.3>2.01 Baseline creatinine 2.6 now -I suspect this is around his baseline creatinine -Fena 0.4% consistent with pre renal -IV fluids stopped 03/14 kidney function is improving (3) DVT (deep venous thrombosis) Qualifiers: DVT location: lower extremity Affected thrombotic vein of extremity: tibial Chronicity: acute Laterality: left Qualified Code(s): I82.442 - Acute embolism and thrombosis of left tibial vein Is this a current diagnosis for this admission?: Yes Plan: - D dimer >20 - unable to do a CTA due to renal function but US revealed a lower leg tibial vein DVT - started on therapeutic lovenox - will need AC after discharge 3-6 months 03/14 continue with anticoagulant (4) Dehydration Is this a current diagnosis for this admission?: Yes (5) Elevated troponin I level Is this a current diagnosis for this admission?: Yes Plan: -Troponin 0.162>0.124 -EKG sinus rhythm no ST elevation -Likely secondary to demand ischemia from hypoxia Further interventions needed (6) Pneumonia due to COVID-19 virus Is this a current diagnosis for this admission?: Yes Plan: -Tested positive for Covid pneumonia 5 days prior to admission -repeat CXR with worsening infiltrates -Completed remdesivir d4 -received convalescent plasma 1 dose -dexa 6 mg IV daily since March 10 -DuoNeb as needed -Vitamin C, vitamin D, zinc -Patient is full code - Plan Summary Summary: - Time Time Spent with patient: 15-24 minutes Medications reviewed and adjusted accordingly: Yes Anticipated Discharge Disposition: Home, Self Care Anticipated Discharge Timeframe: within 72 hours
[2020-03-14] MEDS: MELATONIN 5 MG TABLET PO SCH (22:47)
[2020-03-15] MEDS: FAMOTIDINE 20 MG TABLET PO SCH ×2 (09:01→23:27)
[2020-03-15] MEDS: DEXAMETHASONE SOD PHOSPHATE INJ 4 MG/1 ML VIAL IV SCH (09:02)
[2020-03-15] MEDS: ASCORBIC ACID 500 MG TABLET PO SCH ×2 (09:02→17:06)
[2020-03-15] MEDS: ZINC SULFATE 220 MG CAPSULE PO SCH (09:02)
[2020-03-15] MEDS: CHOLECALCIFEROL (D3) 1,000 UNIT (25 MCG) TABLET PO SCH (09:02)
[2020-03-15] MEDS: ENOXAPARIN SODIUM INJ 80 MG/0.8 ML DISP.SYRIN SUBCUT SCH ×2 (09:02→23:27)
--- NOTE | 2020-03-15 13:28 | PDOC PROGRESS REPORT ---
Subjective Date:: 03/15/20 Subjective:: Patient was admitted with acute respiratory failure and ultimately found to be C ovid positive. He is still hypoxemic. According to report he is more confused than his baseline. Patient also diagnosed with a low leg tibial vein DVT, FRANKLYN on CKD. He is still requiring oxygen FiO2 of 100% 03/15 less confused today. His oxygen was tapered down and is currently on 60% FiO2. Still somewhat confused but much improved Reason For Visit: COVID,PNEUMONIA Physical Exam Vital Signs: Temp Pulse Resp BP Pulse Ox 97.3 F 91 22 H 152/100 H 100 03/15/20 10:00 03/15/20 07:33 03/15/20 12:45 03/15/20 07:33 03/15/20 12:45 Intake & Output 03/14/20 03/15/20 03/16/20 06:59 06:59 06:59 Intake Total 350 440 Output Total 2600 Balance -2250 440 Weight 68.7 kg 66.8 kg General appearance: PRESENT: no acute distress, well-developed Head exam: PRESENT: atraumatic, normocephalic Eye exam: PRESENT: EOMI, PERRLA. ABSENT: scleral icterus Ear exam: PRESENT: normal external ear exam Mouth exam: PRESENT: tongue midline Neck exam: ABSENT: carotid bruit, JVD, lymphadenopathy, thyromegaly Respiratory exam: PRESENT: clear to auscultation ernestine, rhonchi, unlabored. ABSENT: rales, wheezes Cardiovascular exam: PRESENT: RRR, +S1, +S2. ABSENT: diastolic murmur, rubs, systolic murmur Pulses: PRESENT: normal dorsalis pedis pul Vascular exam: PRESENT: normal capillary refill GI/Abdominal exam: PRESENT: normal bowel sounds, soft. ABSENT: distended, guarding, mass, organolmegaly, rebound, tenderness Rectal exam: PRESENT: deferred Extremities exam: PRESENT: full ROM. ABSENT: calf tenderness, clubbing, pedal edema Neurological exam: PRESENT: alert, awake. ABSENT: motor sensory deficit Psychiatric exam: PRESENT: appropriate affect, normal mood. ABSENT: homicidal ideation, suicidal ideation Skin exam: PRESENT: dry, intact, warm. ABSENT: cyanosis, rash Results Laboratory Results: 03/14/20 04:35 03/12/20 06:44 03/09/20 13:34 Blood Blood Culture - Final NO GROWTH IN 5 DAYS 03/09/20 11:13 Blood Blood Culture - Final NO GROWTH IN 5 DAYS 03/09/20 03/09/20 03/09/20 12:12 12:12 12:12 Creatine Kinase 45 L Troponin I 0.063 NT-Pro-B Natriuret Pep 155 H 03/09/20 03/10/20 03/10/20 21:20 04:40 10:40 Creatine Kinase Troponin I 0.259 0.162 0.124 NT-Pro-B Natriuret Pep Impressions: Chest X-Ray 03/12/20 00:00 IMPRESSION: Increased diffuse bilateral parenchymal opacities associated with blunting of the costophrenic sulci. Differential considerations include worsening pulmonary edema or multifocal pneumonia. Venous Doppler Study 03/12/20 00:00 IMPRESSION: 1. Positive examination on the left. Acute occlusive thrombus within the left posterior tibial vein. 2. NO EVIDENCE DVT OR SVT IN RIGHT LEG. Assessment and Plan - Diagnosis (1) Acute hypoxemic respiratory failure due to COVID-19 Is this a current diagnosis for this admission?: Yes Plan: -Tested positive for Covid 5 days prior to admission -O2 sat 80% on room air as noted by EMS - worsening infiltrates on repeat CXR - US doppler lower ext showed left tibial vein DVT - now placed on bipap 100% FIO2 sats 95% - PRN morphine for anxiety related to dyspnea 03/14 we will continue with her current management. Continue with oxygen support and wean off as tolerated. 03/15 we will continue with same management. Taper oxygen as tolerated. He seems to be having a relatively good day today (2) Acute kidney injury superimposed on chronic kidney disease Is this a current diagnosis for this admission?: Yes Plan: -Has a history of chronic kidney disease and kidney stone with nephrostomy tube placement back in 2019 -Crea 4.8>3.4>2.3>2.01 Baseline creatinine 2.6 now -I suspect this is around his baseline creatinine -Fena 0.4% consistent with pre renal -IV fluids stopped 03/14 kidney function is improving (3) DVT (deep venous thrombosis) Qualifiers: DVT location: lower extremity Affected thrombotic vein of extremity: tibial Chronicity: acute Laterality: left Qualified Code(s): I82.442 - Acute embolism and thrombosis of left tibial vein Is this a current diagnosis for this admission?: Yes Plan: - D dimer >20 - unable to do a CTA due to renal function but US revealed a lower leg tibial vein DVT - started on therapeutic lovenox - will need AC after discharge 3-6 months 03/14 continue with anticoagulant 03/15 continue with same management (4) Dehydration Is this a current diagnosis for this admission?: Yes (5) Elevated troponin I level Is this a current diagnosis for this admission?: Yes Plan: -Troponin 0.162>0.124 -EKG sinus rhythm no ST elevation -Likely secondary to demand ischemia from hypoxia No Further interventions needed (6) Pneumonia due to COVID-19 virus Is this a current diagnosis for this admission?: Yes Plan: -Tested positive for Covid pneumonia 5 days prior to admission -repeat CXR with worsening infiltrates -Completed remdesivir d4 -received convalescent plasma 1 dose -dexa 6 mg IV daily since March 10 -DuoNeb as needed -Vitamin C, vitamin D, zinc -Patient is full code Continue supportive management - Plan Summary Summary: - Time Time Spent with patient: 15-24 minutes Medications reviewed and adjusted accordingly: Yes Anticipated Discharge Disposition: Home, Self Care Anticipated Discharge Timeframe: within 72 hours
[2020-03-15] MEDS: MORPHINE SULFATE 10 MG/ML INJ IV PRN ×2 (17:57→23:56)
[2020-03-15] MEDS: MELATONIN 5 MG TABLET PO SCH (23:27)
[2020-03-16] MEDS: FAMOTIDINE 20 MG TABLET PO SCH ×3 (02:36→22:50)
[2020-03-16] MEDS: MELATONIN 5 MG TABLET PO SCH ×2 (02:39→22:30)
[2020-03-16] MEDS ORDERED: LORAZEPAM INJ 2 MG/1 ML VIAL IV ONE (03:45)
[2020-03-16] MEDS: MORPHINE SULFATE 10 MG/ML INJ IV PRN ×3 (03:53→21:11)
[2020-03-16 05:22] LABS: HEMATOCRIT 36.9 % (37.9-51.0); HEMOGLOBIN 11.9 g/dL (13.5-17.0); MEAN CORPUSCULAR HEMOGLOBIN 25.5 pg (27.0-33.4); MEAN CORPUSCULAR HGB CONC 32.4 g/dL (32.0-36.0); MEAN CORPUSCULAR VOLUME 79 fl (80-97); PLATELET COUNT 214 10^3/uL (150-450); RED BLOOD COUNT 4.69 10^6/uL (4.35-5.55); RED CELL DISTRIBUTION WIDTH 14.4 % (11.5-14.0); WHITE BLOOD COUNT 12.2 10^3/uL (4.0-10.5)
[2020-03-16] MEDS: ENOXAPARIN SODIUM INJ 80 MG/0.8 ML DISP.SYRIN SUBCUT SCH ×2 (09:40→22:50)
[2020-03-16] MEDS: DEXAMETHASONE SOD PHOSPHATE INJ 4 MG/1 ML VIAL IV SCH (09:40)
[2020-03-16] MEDS: ZINC SULFATE 220 MG CAPSULE PO SCH (09:41)
[2020-03-16] MEDS: CHOLECALCIFEROL (D3) 1,000 UNIT (25 MCG) TABLET PO SCH (09:41)
--- NOTE | 2020-03-16 13:01 | PDOC PROGRESS REPORT ---
Subjective Date:: 03/16/20 Subjective:: Patient was admitted with acute respiratory failure and ultimately found to be C ovid positive. He is still hypoxemic. According to report he is more confused than his baseline. Patient also diagnosed with a low leg tibial vein DVT, FRANKLYN on CKD. He is still requiring oxygen FiO2 of 100% 03/15 less confused today. His oxygen was tapered down and is currently on 60% FiO2. Still somewhat confused but much improved 03/16 patient appears to be confused again today. His oxygenation is better though currently on 50% FiO2 and with oxygen saturation of about 100%. We will continue to taper off as indicated and tolerated Reason For Visit: COVID,PNEUMONIA Physical Exam Vital Signs: Temp Pulse Resp BP Pulse Ox 97.3 F 108 H 20 112/82 97 03/16/20 10:00 03/16/20 07:35 03/16/20 12:34 03/16/20 07:35 03/16/20 12:42 Intake & Output 03/15/20 03/16/20 03/17/20 06:59 06:59 06:59 Intake Total 440 462 Output Total 800 Balance 440 -338 Weight 66.8 kg 65.6 kg General appearance: PRESENT: no acute distress Head exam: PRESENT: atraumatic, normocephalic Eye exam: PRESENT: conjunctiva pink, EOMI, PERRLA. ABSENT: scleral icterus Ear exam: PRESENT: normal external ear exam Mouth exam: PRESENT: moist, tongue midline Neck exam: ABSENT: carotid bruit, JVD, lymphadenopathy, thyromegaly Respiratory exam: PRESENT: decreased breath sounds, rhonchi. ABSENT: rales, wheezes Cardiovascular exam: PRESENT: RRR, +S1, +S2. ABSENT: diastolic murmur, rubs, systolic murmur Pulses: PRESENT: normal dorsalis pedis pul Vascular exam: PRESENT: normal capillary refill GI/Abdominal exam: PRESENT: normal bowel sounds, soft. ABSENT: distended, guarding, mass, organolmegaly, rebound, tenderness Rectal exam: PRESENT: deferred Extremities exam: PRESENT: full ROM. ABSENT: calf tenderness, clubbing, pedal edema Neurological exam: PRESENT: awake, other - confused, sleepy but easily arousable. ABSENT: motor sensory deficit Psychiatric exam: PRESENT: appropriate affect, normal mood. ABSENT: homicidal ideation, suicidal ideation Skin exam: PRESENT: dry, intact, warm. ABSENT: cyanosis, rash Results Laboratory Results: 03/16/20 04:13 03/12/20 06:44 03/16/20 04:13 WBC 12.2 H RBC 4.69 Hgb 11.9 L Hct 36.9 L MCV 79 L MCH 25.5 L MCHC 32.4 RDW 14.4 H Plt Count 214 03/09/20 03/09/20 03/09/20 12:12 12:12 12:12 Creatine Kinase 45 L Troponin I 0.063 NT-Pro-B Natriuret Pep 155 H 03/09/20 03/10/20 03/10/20 21:20 04:40 10:40 Creatine Kinase Troponin I 0.259 0.162 0.124 NT-Pro-B Natriuret Pep Impressions: Chest X-Ray 03/12/20 00:00 IMPRESSION: Increased diffuse bilateral parenchymal opacities associated with blunting of the costophrenic sulci. Differential considerations include worsening pulmonary edema or multifocal pneumonia. Venous Doppler Study 03/12/20 00:00 IMPRESSION: 1. Positive examination on the left. Acute occlusive thrombus within the left posterior tibial vein. 2. NO EVIDENCE DVT OR SVT IN RIGHT LEG. Assessment and Plan - Diagnosis (1) Acute hypoxemic respiratory failure due to COVID-19 Is this a current diagnosis for this admission?: Yes Plan: -Tested positive for Covid 5 days prior to admission -O2 sat 80% on room air as noted by EMS - worsening infiltrates on repeat CXR - US doppler lower ext showed left tibial vein DVT - now placed on bipap 100% FIO2 sats 95% - PRN morphine for anxiety related to dyspnea 03/14 we will continue with her current management. Continue with oxygen support and wean off as tolerated. 03/15 we will continue with same management. Taper oxygen as tolerated. He seems to be having a relatively good day today 03/16 we will continue with supportive therapy, taper oxygen as tolerated. He is down to 50% FiO2 (2) Acute kidney injury superimposed on chronic kidney disease Is this a current diagnosis for this admission?: Yes Plan: -Has a history of chronic kidney disease and kidney stone with nephrostomy tube placement back in 2019 -Crea 4.8>3.4>2.3>2.01 Baseline creatinine 2.6 now -I suspect this is around his baseline creatinine -Fena 0.4% consistent with pre renal -IV fluids stopped 03/14 kidney function is improving (3) DVT (deep venous thrombosis) Qualifiers: DVT location: lower extremity Affected thrombotic vein of extremity: tibial Chronicity: acute Laterality: left Qualified Code(s): I82.442 - Acute embolism and thrombosis of left tibial vein Is this a current diagnosis for this admission?: Yes Plan: - D dimer >20 - unable to do a CTA due to renal function but US revealed a lower leg tibial vein DVT - started on therapeutic lovenox - will need AC after discharge 3-6 months 03/14 continue with anticoagulant 03/15 continue with same management 03/16 patient is currently on Lovenox. Will consider changing this to oral anticoagulant. (4) Dehydration Is this a current diagnosis for this admission?: Yes (5) Elevated troponin I level Is this a current diagnosis for this admission?: Yes Plan: -Troponin 0.162>0.124 -EKG sinus rhythm no ST elevation -Likely secondary to demand ischemia from hypoxia No Further interventions needed (6) Pneumonia due to COVID-19 virus Is this a current diagnosis for this admission?: Yes Plan: -Tested positive for Covid pneumonia 5 days prior to admission -repeat CXR with worsening infiltrates -Completed remdesivir d4 -received convalescent plasma 1 dose -dexa 6 mg IV daily since March 10 -DuoNeb as needed -Vitamin C, vitamin D, zinc -Patient is full code Continue supportive management - Plan Summary Summary: - Time Time Spent with patient: 15-24 minutes Medications reviewed and adjusted accordingly: Yes Anticipated Discharge Disposition: Home, Self Care Anticipated Discharge Timeframe: TBD
[2020-03-16] MEDS: ASCORBIC ACID 500 MG TABLET PO SCH ×2 (13:50→22:36)
[2020-03-17] MEDS: MORPHINE SULFATE 10 MG/ML INJ IV PRN ×2 (01:09→05:25)
[2020-03-17] MEDS: DEXAMETHASONE SOD PHOSPHATE INJ 4 MG/1 ML VIAL IV SCH (10:03)
[2020-03-17] MEDS: FAMOTIDINE 20 MG TABLET PO SCH ×2 (10:04→21:34)
[2020-03-17] MEDS: ZINC SULFATE 220 MG CAPSULE PO SCH (10:04)
[2020-03-17] MEDS: ENOXAPARIN SODIUM INJ 80 MG/0.8 ML DISP.SYRIN SUBCUT SCH ×2 (10:05→21:33)
[2020-03-17] MEDS: ASCORBIC ACID 500 MG TABLET PO SCH ×2 (10:05→19:00)
[2020-03-17] MEDS: CHOLECALCIFEROL (D3) 1,000 UNIT (25 MCG) TABLET PO SCH (10:05)
--- NOTE | 2020-03-17 10:36 | PDOC PROGRESS REPORT ---
Subjective Date:: 03/17/20 Subjective:: Patient was admitted with acute respiratory failure and ultimately found to be C ovid positive. He is still hypoxemic. According to report he is more confused than his baseline. Patient also diagnosed with a low leg tibial vein DVT, FRANKLYN on CKD. He is still requiring oxygen FiO2 of 100% 03/15 less confused today. His oxygen was tapered down and is currently on 60% FiO2. Still somewhat confused but much improved 03/16 patient appears to be confused again today. His oxygenation is better though currently on 50% FiO2 and with oxygen saturation of about 100%. We will continue to taper off as indicated and tolerated 03/17Patient seems to be doing okay. He is down to 2L of Oxygen and maintaining in the 100%, Reason For Visit: COVID,PNEUMONIA Physical Exam Vital Signs: Temp Pulse Resp BP Pulse Ox 97.6 F 106 H 14 126/87 H 100 03/17/20 04:46 03/17/20 04:46 03/17/20 04:46 03/17/20 04:46 03/17/20 09:37 Intake & Output 03/16/20 03/17/20 03/18/20 06:59 06:59 06:59 Intake Total 462 358 Output Total 800 450 Balance -338 -92 Weight 65.6 kg 65.6 kg General appearance: PRESENT: no acute distress, thin Head exam: PRESENT: atraumatic, normocephalic Eye exam: ABSENT: scleral icterus Ear exam: PRESENT: normal external ear exam Mouth exam: PRESENT: moist Neck exam: ABSENT: carotid bruit, JVD, lymphadenopathy, thyromegaly Respiratory exam: PRESENT: clear to auscultation ernestine, unlabored. ABSENT: rales, rhonchi, wheezes Cardiovascular exam: PRESENT: RRR, +S1, +S2. ABSENT: diastolic murmur, rubs, systolic murmur Pulses: PRESENT: normal dorsalis pedis pul GI/Abdominal exam: PRESENT: normal bowel sounds, soft. ABSENT: distended, guarding, mass, organolmegaly, rebound, tenderness Rectal exam: PRESENT: deferred Extremities exam: PRESENT: full ROM. ABSENT: calf tenderness, clubbing, pedal edema Neurological exam: PRESENT: alert, awake. ABSENT: motor sensory deficit Psychiatric exam: ABSENT: homicidal ideation, suicidal ideation Skin exam: PRESENT: dry, intact, warm. ABSENT: cyanosis, rash Results Laboratory Results: 03/16/20 04:13 03/12/20 06:44 03/09/20 03/09/20 03/09/20 12:12 12:12 12:12 Creatine Kinase 45 L Troponin I 0.063 NT-Pro-B Natriuret Pep 155 H 03/09/20 03/10/20 03/10/20 21:20 04:40 10:40 Creatine Kinase Troponin I 0.259 0.162 0.124 NT-Pro-B Natriuret Pep Impressions: Chest X-Ray 03/12/20 00:00 IMPRESSION: Increased diffuse bilateral parenchymal opacities associated with blunting of the costophrenic sulci. Differential considerations include worsening pulmonary edema or multifocal pneumonia. Venous Doppler Study 03/12/20 00:00 IMPRESSION: 1. Positive examination on the left. Acute occlusive thrombus within the left posterior tibial vein. 2. NO EVIDENCE DVT OR SVT IN RIGHT LEG. Assessment and Plan - Diagnosis (1) Acute hypoxemic respiratory failure due to COVID-19 Is this a current diagnosis for this admission?: Yes Plan: -Tested positive for Covid 5 days prior to admission -O2 sat 80% on room air as noted by EMS - worsening infiltrates on repeat CXR - US doppler lower ext showed left tibial vein DVT - now placed on bipap 100% FIO2 sats 95% - PRN morphine for anxiety related to dyspnea 03/14 we will continue with her current management. Continue with oxygen support and wean off as tolerated. 03/15 we will continue with same management. Taper oxygen as tolerated. He seems to be having a relatively good day today 03/16 we will continue with supportive therapy, taper oxygen as tolerated. He is down to 50% FiO2 03/17 Taper off Oxygen as tolerated (2) Acute kidney injury superimposed on chronic kidney disease Is this a current diagnosis for this admission?: Yes (3) DVT (deep venous thrombosis) Qualifiers: DVT location: lower extremity Affected thrombotic vein of extremity: tibial Chronicity: acute Laterality: left Qualified Code(s): I82.442 - Acute embolism and thrombosis of left tibial vein Is this a current diagnosis for this admission?: Yes Plan: - D dimer >20 - unable to do a CTA due to renal function but US revealed a lower leg tibial vein DVT - started on therapeutic lovenox - will need AC after discharge 3-6 months 11/18 continue with anticoagulant 03/15 continue with same management 03/16 patient is currently on Lovenox. Will consider changing this to oral anticoagulant. (4) Dehydration Is this a current diagnosis for this admission?: Yes (5) Elevated troponin I level Is this a current diagnosis for this admission?: Yes Plan: -Troponin 0.162>0.124 -EKG sinus rhythm no ST elevation -Likely secondary to demand ischemia from hypoxia No Further interventions needed (6) Pneumonia due to COVID-19 virus Is this a current diagnosis for this admission?: Yes Plan: -Tested positive for Covid pneumonia 5 days prior to admission -repeat CXR with worsening infiltrates -Completed remdesivir d4 -received convalescent plasma 1 dose -dexa 6 mg IV daily since March 10 -DuoNeb as needed -Vitamin C, vitamin D, zinc -Patient is full code Continue supportive management - Plan Summary Summary: Continue same management and taper off as tolerated - Time Time Spent with patient: 15-24 minutes Medications reviewed and adjusted accordingly: Yes Anticipated Discharge Disposition: Home, Self Care Anticipated Discharge Timeframe: within 72 hours
[2020-03-17 14:12] LABS: APPEARANCE,URINE SLIGHTLY-CLOUDY; BILIRUBIN,URINE NEGATIVE (NEGATIVE); COLOR,URINE YELLOW; GLUCOSE, URINE NEGATIVE (NEGATIVE); KETONES,URINE NEGATIVE (NEGATIVE); LEUKOCYTE ESTERASE,URINE NEGATIVE (NEGATIVE); NITRITE,URINE NEGATIVE (NEGATIVE); PROTEIN,URINE 100 mg/dL (NEGATIVE); URINE SPECIFIC GRAVITY 1.014; UROBILINOGEN,URINE NEGATIVE mg/dL (<2.0)
[2020-03-17] MEDS: MELATONIN 5 MG TABLET PO SCH (21:33)
[2020-03-18] MEDS: ENOXAPARIN SODIUM INJ 80 MG/0.8 ML DISP.SYRIN SUBCUT SCH ×2 (09:45→21:46)
[2020-03-18] MEDS: DEXAMETHASONE SOD PHOSPHATE INJ 4 MG/1 ML VIAL IV SCH (09:45)
--- NOTE | 2020-03-18 11:55 | PDOC PROGRESS REPORT ---
Subjective Date:: 03/18/20 Subjective:: Patient was admitted with acute respiratory failure and ultimately found to be C ovid positive. He is still hypoxemic. According to report he is more confused than his baseline. Patient also diagnosed with a low leg tibial vein DVT, FRANKLYN on CKD. He is still requiring oxygen FiO2 of 100% 03/15 less confused today. His oxygen was tapered down and is currently on 60% FiO2. Still somewhat confused but much improved 03/16 patient appears to be confused again today. His oxygenation is better though currently on 50% FiO2 and with oxygen saturation of about 100%. We will continue to taper off as indicated and tolerated 03/17Patient seems to be doing okay. He is down to 2L of Oxygen and maintaining in the 100%, 03/18 Patient's respiratory status has improved markedly and he has made a remarkable recovery. In fact his oxygen saturation is 100% on 2 L so we will taper off oxygen as tolerated however patient remains confused. He is hardly talking and is really not taking much orally including his medications Reason For Visit: COVID,PNEUMONIA Physical Exam Vital Signs: Temp Pulse Resp BP Pulse Ox 97.6 F 115 H 18 128/94 H 97 03/18/20 07:13 03/18/20 07:13 03/18/20 07:13 03/18/20 07:13 03/18/20 09:43 Intake & Output 03/17/20 03/18/20 03/19/20 06:59 06:59 06:59 Intake Total 358 105 Output Total 450 550 Balance -92 -445 Weight 65.6 kg 61.6 kg General appearance: PRESENT: no acute distress, thin Head exam: PRESENT: atraumatic, normocephalic Eye exam: PRESENT: conjunctiva pink, EOMI, PERRLA. ABSENT: scleral icterus Mouth exam: PRESENT: tongue midline Neck exam: ABSENT: carotid bruit, JVD, lymphadenopathy, thyromegaly Respiratory exam: PRESENT: clear to auscultation ernestine. ABSENT: rales, rhonchi, wheezes Cardiovascular exam: PRESENT: RRR, +S1, +S2. ABSENT: diastolic murmur, rubs, systolic murmur Pulses: PRESENT: normal dorsalis pedis pul Vascular exam: PRESENT: normal capillary refill GI/Abdominal exam: PRESENT: normal bowel sounds, soft. ABSENT: distended, guard ing, mass, organolmegaly, rebound, tenderness Rectal exam: PRESENT: deferred Extremities exam: PRESENT: full ROM. ABSENT: calf tenderness, clubbing, pedal edema Neurological exam: PRESENT: alert, awake, other - Minimal verbal response. ABSENT: motor sensory deficit Psychiatric exam: PRESENT: appropriate affect, normal mood. ABSENT: homicidal ideation, suicidal ideation Skin exam: PRESENT: dry, intact, warm. ABSENT: cyanosis, rash Results Laboratory Results: 03/16/20 04:13 03/12/20 06:44 03/17/20 13:15 Urine Color YELLOW Urine Appearance SLIGHTLY-CLOUDY Urine pH 5.0 Ur Specific [place] 1.014 Urine Protein 100 H Urine Glucose (UA) NEGATIVE Urine Ketones NEGATIVE Urine Blood MODERATE H Urine Nitrite NEGATIVE Ur Leukocyte Esterase NEGATIVE Urine WBC (Auto) 1 Urine RBC (Auto) 6 03/09/20 03/09/20 03/09/20 12:12 12:12 12:12 Creatine Kinase 45 L Troponin I 0.063 NT-Pro-B Natriuret Pep 155 H 03/09/20 03/10/20 03/10/20 21:20 04:40 10:40 Creatine Kinase Troponin I 0.259 0.162 0.124 NT-Pro-B Natriuret Pep Impressions: Chest X-Ray 03/12/20 00:00 IMPRESSION: Increased diffuse bilateral parenchymal opacities associated with blunting of the costophrenic sulci. Differential considerations include worsening pulmonary edema or multifocal pneumonia. Venous Doppler Study 03/12/20 00:00 IMPRESSION: 1. Positive examination on the left. Acute occlusive thrombus within the left posterior tibial vein. 2. NO EVIDENCE DVT OR SVT IN RIGHT LEG. Assessment and Plan - Diagnosis (1) Acute hypoxemic respiratory failure due to COVID-19 Is this a current diagnosis for this admission?: Yes Plan: -Tested positive for Covid 5 days prior to admission -O2 sat 80% on room air as noted by EMS - worsening infiltrates on repeat CXR - US doppler lower ext showed left tibial vein DVT - now placed on bipap 100% FIO2 sats 95% - PRN morphine for anxiety related to dyspnea 03/14 we will continue with her current management. Continue with oxygen supp ort and wean off as tolerated. 03/15 we will continue with same management. Taper oxygen as tolerated. He seems to be having a relatively good day today 03/16 we will continue with supportive therapy, taper oxygen as tolerated. He is down to 50% FiO2 03/17 Taper off Oxygen as tolerated 03/18 respiratory status has improved remarkably (2) Acute kidney injury superimposed on chronic kidney disease Is this a current diagnosis for this admission?: Yes Plan: -Has a history of chronic kidney disease and kidney stone with nephrostomy tube placement back in 2019 -Crea 4.8>3.4>2.3>2.01 Baseline creatinine 2.6 now -I suspect this is around his baseline creatinine -Fena 0.4% consistent with pre renal -IV fluids stopped 03/14 kidney function is improving 03/18 check labs in a.m. (3) DVT (deep venous thrombosis) Qualifiers: DVT location: lower extremity Affected thrombotic vein of extremity: tibial Chronicity: acute Laterality: left Qualified Code(s): I82.442 - Acute embolism and thrombosis of left tibial vein Is this a current diagnosis for this admission?: Yes Plan: - D dimer >20 - unable to do a CTA due to renal function but US revealed a lower leg tibial vein DVT - started on therapeutic lovenox - will need AC after discharge 3-6 months 03/14 continue with anticoagulant 03/15 continue with same management 03/16 patient is currently on Lovenox. Will consider changing this to oral anticoagulant. 03/18 patient has been on Lovenox and now is actually contemplating changing him to oral anticoagulant however because his oral intake is poor including his medications I will leave him on Lovenox for now and he should be transitioned over to oral when his intake improves (4) Dehydration Is this a current diagnosis for this admission?: Yes (5) Elevated troponin I level Is this a current diagnosis for this admission?: Yes Plan: -Troponin 0.162>0.124 -EKG sinus rhythm no ST elevation -Likely secondary to demand ischemia from hypoxia No Further interventions needed (6) Pneumonia due to COVID-19 virus Is this a current diagnosis for this admission?: Yes Plan: -Tested positive for Covid pneumonia 5 days prior to admission -repeat CXR with worsening infiltrates -Completed remdesivir d4 -received convalescent plasma 1 dose -dexa 6 mg IV daily since March 10 this can likely be discontinued on March 19 for a 10-day course. Patient respiratory status has improved -DuoNeb as needed -Vitamin C, vitamin D, zinc -Patient is full code Continue supportive management - Plan Summary Summary: Plan to DC dexamethasone on 1123. Low up on labs in a.m. Switch to oral anticoagulant when he is able to tolerate orally Need physical therapy once stable - Time Time Spent with patient: 15-24 minutes Medications reviewed and adjusted accordingly: Yes Anticipated Discharge Disposition: Home, Self Care Anticipated Discharge Timeframe: within 72 hours
[2020-03-18] MEDS: DEXTROSE 5%-1/2 NORMAL SALINE 1,000 ML IV PRN (12:30)
[2020-03-18] MEDS: ASCORBIC ACID 500 MG TABLET PO SCH ×2 (12:30→21:44)
[2020-03-18] MEDS: CHOLECALCIFEROL (D3) 1,000 UNIT (25 MCG) TABLET PO SCH (12:30)
[2020-03-18] MEDS: FAMOTIDINE 20 MG TABLET PO SCH ×2 (12:30→21:46)
[2020-03-18] MEDS: ZINC SULFATE 220 MG CAPSULE PO SCH (12:31)
[2020-03-18] MEDS: MELATONIN 5 MG TABLET PO SCH (21:46)
[2020-03-19] MEDS: DEXTROSE 5%-1/2 NORMAL SALINE 1,000 ML IV PRN ×2 (01:53→12:18)
[2020-03-19 06:06] LABS: HEMOGLOBIN 12.9 g/dL (13.5-17.0); MEAN CORPUSCULAR HGB CONC 32.1 g/dL (32.0-36.0); MEAN CORPUSCULAR VOLUME 81 fl (80-97); PLATELET COUNT 260 10^3/uL (150-450); RED BLOOD COUNT 4.95 10^6/uL (4.35-5.55); RED CELL DISTRIBUTION WIDTH 14.4 % (11.5-14.0); WHITE BLOOD COUNT 15.1 10^3/uL (4.0-10.5)
[2020-03-19 08:25] LABS: ANION GAP 14 (5-19); CALCIUM 9.4 mg/dL (8.4-10.2); CARBON DIOXIDE 19 mmol/L (22-30); CHLORIDE 137 mmol/L (98-107); GLUCOSE 158 mg/dL (75-110); POTASSIUM 5.1 mmol/L (3.6-5.0)
[2020-03-19 09:13] LABS: BLOOD UREA NITROGEN 140 mg/dL (7-20)
[2020-03-19] MEDS: ENOXAPARIN SODIUM INJ 80 MG/0.8 ML DISP.SYRIN SUBCUT SCH ×2 (12:05→21:48)
[2020-03-19] MEDS: DEXAMETHASONE SOD PHOSPHATE INJ 4 MG/1 ML VIAL IV SCH (12:06)
[2020-03-19] MEDS: FAMOTIDINE 20 MG TABLET PO SCH ×2 (12:07→21:48)
[2020-03-19] MEDS: ZINC SULFATE 220 MG CAPSULE PO SCH (12:07)
[2020-03-19] MEDS: CHOLECALCIFEROL (D3) 1,000 UNIT (25 MCG) TABLET PO SCH (12:07)
[2020-03-19] MEDS: ASCORBIC ACID 500 MG TABLET PO SCH ×3 (12:17→18:17)
[2020-03-19 14:46] LABS: APPEARANCE,URINE CLOUDY; BILIRUBIN,URINE NEGATIVE (NEGATIVE); COLOR,URINE YELLOW; GLUCOSE, URINE NEGATIVE (NEGATIVE); KETONES,URINE NEGATIVE (NEGATIVE); LEUKOCYTE ESTERASE,URINE NEGATIVE (NEGATIVE); NITRITE,URINE NEGATIVE (NEGATIVE); PROTEIN,URINE 100 mg/dL (NEGATIVE); URINE SPECIFIC GRAVITY 1.015; UROBILINOGEN,URINE NEGATIVE mg/dL (<2.0)
--- NOTE | 2020-03-19 15:53 | PDOC PROGRESS REPORT ---
Subjective Date:: 03/19/20 Subjective:: Patient awake and alert. Slowly answers questions. No acute complaints today. Reason For Visit: COVID,PNEUMONIA Physical Exam Vital Signs: Temp Pulse Resp BP Pulse Ox 97.5 F 113 H 20 132/97 H 100 03/19/20 10:32 03/19/20 14:00 03/19/20 10:32 03/19/20 10:32 03/19/20 10:32 Intake & Output 03/18/20 03/19/20 03/20/20 06:59 06:59 06:59 Intake Total 105 1260 1138 Output Total 550 Balance -445 1260 1138 Weight 61.6 kg 61.7 kg General appearance: PRESENT: no acute distress, cooperative, thin, well- developed Head exam: PRESENT: atraumatic, normocephalic Respiratory exam: PRESENT: symmetrical, unlabored, other - Decreased inspiratory phase. ABSENT: accessory muscle use, rales, rhonchi, tachypnea, wheezes Cardiovascular exam: PRESENT: RRR, +S1, +S2. ABSENT: bradycardia, diastolic murmur, irregular rhythm, systolic murmur, tachycardia GI/Abdominal exam: PRESENT: normal bowel sounds, soft. ABSENT: distended, guar ding, tenderness Rectal exam: PRESENT: deferred Gentrourinary exam: ABSENT: indwelling catheter Extremities exam: ABSENT: pedal edema Musculoskeletal exam: PRESENT: normal inspection. ABSENT: deformity, dislocation Neurological exam: PRESENT: alert, awake, oriented to person, oriented to situation Psychiatric exam: PRESENT: flat affect. ABSENT: agitated, anxious Focused psych exam: ABSENT: delusional, paranoid, restlessness Skin exam: PRESENT: dry, normal color, warm. ABSENT: cyanosis, rash Results Laboratory Results: 03/19/20 04:58 03/19/20 07:30 03/19/20 03/19/20 03/19/20 04:58 04:58 07:30 WBC 15.1 H RBC 4.95 Hgb 12.9 L Hct 40.0 MCV 81 MCH 26.0 L MCHC 32.1 RDW 14.4 H Plt Count 260 Sodium Cancelled 169.8 H* Potassium Cancelled 5.1 H Chloride Cancelled 137 H Carbon Dioxide Cancelled 19 L Anion Gap Cancelled 14 BUN Cancelled 140 H Creatinine Cancelled 3.99 H Est GFR ( Amer) Cancelled 19 L Est GFR (Non-Af Amer) Cancelled Glucose Cancelled 158 H Calcium Cancelled 9.4 Urine Color Urine Appearance Urine pH Ur Specific [place] Urine Protein Urine Glucose (UA) Urine Ketones Urine Blood Urine Nitrite Ur Leukocyte Esterase Urine WBC (Auto) Urine RBC (Auto) 03/19/20 14:02 WBC RBC Hgb Hct MCV MCH MCHC RDW Plt Count Sodium Potassium Chloride Carbon Dioxide Anion Gap BUN Creatinine Est GFR ( Amer) Est GFR (Non-Af Amer) Glucose Calcium Urine Color YELLOW Urine Appearance CLOUDY Urine pH 5.0 Ur Specific [place] 1.015 Urine Protein 100 H Urine Glucose (UA) NEGATIVE Urine Ketones NEGATIVE Urine Blood SMALL H Urine Nitrite NEGATIVE Ur Leukocyte Esterase NEGATIVE Urine WBC (Auto) 2 Urine RBC (Auto) 2 03/09/20 03/09/20 03/09/20 12:12 12:12 12:12 Creatine Kinase 45 L Troponin I 0.063 NT-Pro-B Natriuret Pep 155 H 03/09/20 03/10/20 03/10/20 21:20 04:40 10:40 Creatine Kinase Troponin I 0.259 0.162 0.124 NT-Pro-B Natriuret Pep Impressions: Chest X-Ray 03/12/20 00:00 IMPRESSION: Increased diffuse bilateral parenchymal opacities associated with blunting of the costophrenic sulci. Differential considerations include worsening pulmonary edema or multifocal pneumonia. Venous Doppler Study 03/12/20 00:00 IMPRESSION: 1. Positive examination on the left. Acute occlusive thrombus within the left posterior tibial vein. 2. NO EVIDENCE DVT OR SVT IN RIGHT LEG. Assessment and Plan - Diagnosis (1) Hypernatremia Is this a current diagnosis for this admission?: Yes Plan: 03/19/2020-sodium is now 169. Will change to D5W in order serial labs. (2) Acute hypoxemic respiratory failure due to COVID-19 Is this a current diagnosis for this admission?: Yes Plan: -Tested positive for Covid 5 days prior to admission -O2 sat 80% on room air as noted by EMS - worsening infiltrates on repeat CXR - US doppler lower ext showed left tibial vein DVT - now placed on bipap 100% FIO2 sats 95% - PRN morphine for anxiety related to dyspnea 03/14 we will continue with her current management. Continue with oxygen support and wean off as tolerated. 03/15 we will continue with same management. Taper oxygen as tolerated. He seems to be having a relatively good day today 03/16 we will continue with supportive therapy, taper oxygen as tolerated. He is down to 50% FiO2 03/17 Taper off Oxygen as tolerated 03/18 respiratory status has improved remarkably 03/19/2020-currently resting on room air. Continue to monitor closely. (3) Acute kidney injury superimposed on chronic kidney disease Is this a current diagnosis for this admission?: Yes Plan: -Has a history of chronic kidney disease and kidney stone with nephrostomy tube placement back in 2019 -Crea 4.8>3.4>2.3>2.01 Baseline creatinine 2.6 now -I suspect this is around his baseline creatinine -Fena 0.4% consistent with pre renal -IV fluids stopped 03/14 kidney function is improving 03/18 check labs in a.m. 03/19/2020-due to significant dehydration BUN and creatinine are up. Will monitor with infusion of D5W (4) DVT (deep venous thrombosis) Qualifiers: DVT location: lower extremity Affected thrombotic vein of extremity: tibial Chronicity: acute Laterality: left Qualified Code(s): I82.442 - Acute embolism and thrombosis of left tibial vein Is this a current diagnosis for this admission?: Yes Plan: - D dimer >20 - unable to do a CTA due to renal function but US revealed a lower leg tibial vein DVT - started on therapeutic lovenox - will need AC after discharge 3-6 months 03/14 continue with anticoagulant 03/15 continue with same management 03/16 patient is currently on Lovenox. Will consider changing this to oral anticoagulant. 03/18 patient has been on Lovenox and now is actually contemplating changing him to oral anticoagulant however because his oral intake is poor including his medications I will leave him on Lovenox for now and he should be transitioned over to oral when his intake improves 03/19/2020-continue therapeutic Lovenox at this point. No changes in medications until electrolyte imbalance improves. (5) Dehydration Is this a current diagnosis for this admission?: Yes Plan: 03/19/2020-based on I's and O's he would not think he would be this dehydrated. We will immediately change fluids to D5W. Infuse at 120 mL an hour and this should correct sodium at 0.5 mEq/h. (6) Elevated troponin I level Is this a current diagnosis for this admission?: Yes Plan: -Troponin 0.162>0.124 -EKG sinus rhythm no ST elevation -Likely secondary to demand ischemia from hypoxia No Further interventions needed (7) Pneumonia due to COVID-19 virus Is this a current diagnosis for this admission?: Yes Plan: -Tested positive for Covid pneumonia 5 days prior to admission -repeat CXR with worsening infiltrates -Completed remdesivir d4 -received convalescent plasma 1 dose -dexa 6 mg IV daily since March 10 this can likely be discontinued on March 19 for a 10-day course. Patient respiratory status has improved -DuoNeb as needed -Vitamin C, vitamin D, zinc -Patient is full code Continue supportive management 03/19/2020-trial room air today. Continue current supplements. Consider decreasing dexamethasone. (8) Hyperkalemia Is this a current diagnosis for this admission?: Yes Plan: 03/19/2020-potassium 5.1. This will decrease with D5W. We will need to monitor closely. - Plan Summary Summary: Plan to DC dexamethasone on 1122. Low up on labs in a.m. Switch to oral anticoagulant when he is able to tolerate orally Need physical therapy once stable - Time Time Spent with patient: 15-24 minutes Medications reviewed and adjusted accordingly: Yes Anticipated Discharge Disposition[facility] Anticipated Discharge Timeframe: within 72 hours
[2020-03-19] MEDS: DEXTROSE 5%-WATER 1000 ML 1,000 ML IV PRN (17:59)
[2020-03-19] MEDS: MELATONIN 5 MG TABLET PO SCH (21:48)
[2020-03-19 23:21] LABS: ANION GAP 12 (5-19); CALCIUM 9.5 mg/dL (8.4-10.2); CARBON DIOXIDE 23 mmol/L (22-30); CHLORIDE 132 mmol/L (98-107); GLUCOSE 146 mg/dL (75-110); POTASSIUM 5.4 mmol/L (3.6-5.0)
[2020-03-19 23:51] LABS: BLOOD UREA NITROGEN 125 mg/dL (7-20)
[2020-03-20] MEDS: DEXTROSE 5%-WATER 1000 ML 1,000 ML IV PRN ×2 (04:05→16:11)
[2020-03-20 05:39] LABS: HEMATOCRIT 37.4 % (37.9-51.0); HEMOGLOBIN 11.8 g/dL (13.5-17.0); MEAN CORPUSCULAR HEMOGLOBIN 25.6 pg (27.0-33.4); MEAN CORPUSCULAR HGB CONC 31.7 g/dL (32.0-36.0); MEAN CORPUSCULAR VOLUME 81 fl (80-97); PLATELET COUNT 197 10^3/uL (150-450); RED BLOOD COUNT 4.62 10^6/uL (4.35-5.55); RED CELL DISTRIBUTION WIDTH 14.2 % (11.5-14.0); WHITE BLOOD COUNT 14.9 10^3/uL (4.0-10.5)
[2020-03-20 05:59] LABS: ALBUMIN 3.3 g/dL (3.5-5.0); ALKALINE PHOSPHATASE 482 U/L (38-126); ANION GAP 10 (5-19); ASPARTATE AMINO TRANSFERASE 46 U/L (17-59); BILIRUBIN,DIRECT 0.6 mg/dL (0.0-0.4); BILIRUBIN,TOTAL 0.9 mg/dL (0.2-1.3); BLOOD UREA NITROGEN 116 mg/dL (7-20); CALCIUM 9.2 mg/dL (8.4-10.2); CARBON DIOXIDE 21 mmol/L (22-30); CHLORIDE 131 mmol/L (98-107); GLUCOSE 150 mg/dL (75-110); POTASSIUM 4.8 mmol/L (3.6-5.0); TOTAL PROTEIN 6.9 g/dL (6.3-8.2)
[2020-03-20 06:20] LABS: ABSOLUTE LYMPHOCYTES# (MANUAL) 1.6 10^3/uL (0.5-4.7); ABSOLUTE MONOCYTES # (MANUAL) 1.2 10^3/uL (0.1-1.4); BASOPHILS % (MANUAL) 0 % (0-2); EOSINOPHILS % (MANUAL) 0 % (0-6); LYMPHOCYTES % (MANUAL) 11 % (13-45); MONOCYTES % (MANUAL) 8 % (3-13); SEGMENTED NEUTROPHILS % (MAN) 81 % (42-78); TOTAL CELLS COUNTED 100
[2020-03-20 06:21] LABS: OVALOCYTES SLIGHT; PLATELET COMMENT ADEQUATE; POIKILOCYTOSIS SLIGHT; TEAR DROP CELLS SLIGHT
[2020-03-20] MEDS: DEXAMETHASONE SOD PHOSPHATE INJ 4 MG/1 ML VIAL IV SCH (09:25)
[2020-03-20] MEDS: ZINC SULFATE 220 MG CAPSULE PO SCH (09:25)
[2020-03-20] MEDS: ENOXAPARIN SODIUM INJ 80 MG/0.8 ML DISP.SYRIN SUBCUT SCH ×2 (09:25→21:33)
[2020-03-20] MEDS: ASCORBIC ACID 500 MG TABLET PO SCH ×2 (09:25→17:31)
[2020-03-20] MEDS: CHOLECALCIFEROL (D3) 1,000 UNIT (25 MCG) TABLET PO SCH (09:25)
[2020-03-20] MEDS: FAMOTIDINE 20 MG TABLET PO SCH ×2 (09:25→21:33)
--- NOTE | 2020-03-20 14:10 | PDOC PROGRESS REPORT ---
Subjective Date:: 03/20/20 Subjective:: Patient still somewhat dazed appearing. Limited interaction today. Reason For Visit: COVID,PNEUMONIA Physical Exam Vital Signs: Temp Pulse Resp BP Pulse Ox 97.9 F 99 18 134/90 H 97 03/20/20 11:29 03/20/20 11:29 03/20/20 11:29 03/20/20 11:29 03/20/20 11:29 Intake & Output 03/19/20 03/20/20 03/21/20 06:59 06:59 06:59 Intake Total 1260 3378 Output Total 300 Balance 1260 3078 Weight 61.7 kg 62.1 kg General appearance: PRESENT: no acute distress, cooperative - Limited cooperation. Patient not voluntarily uncooperative Head exam: PRESENT: atraumatic, normocephalic Respiratory exam: PRESENT: clear to auscultation [place], symmetrical, unlabored. ABSENT: rales, rhonchi, tachypnea, wheezes Cardiovascular exam: PRESENT: RRR, +S1, +S2. ABSENT: bradycardia, diastolic murmur, irregular rhythm, systolic murmur, tachycardia GI/Abdominal exam: PRESENT: normal bowel sounds, soft. ABSENT: distended, guarding, tenderness Rectal exam: PRESENT: deferred Neurological exam: PRESENT: alert, awake, oriented to person. ABSENT: oriented to place - He did respond to his name but I do not believe he is oriented to place or situation Psychiatric exam: PRESENT: flat affect. ABSENT: agitated, anxious Results Laboratory Results: 03/20/20 04:18 03/20/20 04:18 03/19/20 03/19/20 03/20/20 14:02 22:10 04:18 WBC RBC Hgb Hct MCV MCH MCHC RDW Plt Count Seg Neutrophils % Sodium 167.1 H 161.7 H Potassium 5.4 H 4.8 Chloride 132 H 131 H Carbon Dioxide 23 21 L Anion Gap 12 10 BUN 125 H 116 H Creatinine 3.24 H 3.31 H Est GFR ( Amer) 25 L 24 L Glucose 146 H 150 H Calcium 9.5 9.2 Magnesium 3.1 H 2.9 H Total Bilirubin 0.9 AST 46 Alkaline Phosphatase 482 H Total Protein 6.9 Albumin 3.3 L Urine Color YELLOW Urine Appearance CLOUDY Urine pH 5.0 Ur Specific [place] 1.015 Urine Protein 100 H Urine Glucose (UA) NEGATIVE Urine Ketones NEGATIVE Urine Blood SMALL H Urine Nitrite NEGATIVE Ur Leukocyte Esterase NEGATIVE Urine WBC (Auto) 2 Urine RBC (Auto) 2 03/20/20 04:18 WBC 14.9 H RBC 4.62 Hgb 11.8 L Hct 37.4 L MCV 81 MCH 25.6 L MCHC 31.7 L RDW 14.2 H Plt Count 197 Seg Neutrophils % Not Reportable Sodium Potassium Chloride Carbon Dioxide Anion Gap BUN Creatinine Est GFR ( Amer) Glucose Calcium Magnesium Total Bilirubin AST Alkaline Phosphatase Total Protein Albumin Urine Color Urine Appearance Urine pH Ur Specific [place] Urine Protein Urine Glucose (UA) Urine Ketones Urine Blood Urine Nitrite Ur Leukocyte Esterase Urine WBC (Auto) Urine RBC (Auto) 03/09/20 03/09/20 03/09/20 12:12 12:12 12:12 Creatine Kinase 45 L Troponin I 0.063 NT-Pro-B Natriuret Pep 155 H 03/09/20 03/10/20 03/10/20 21:20 04:40 10:40 Creatine Kinase Troponin I 0.259 0.162 0.124 NT-Pro-B Natriuret Pep Impressions: Chest X-Ray 03/12/20 00:00 IMPRESSION: Increased diffuse bilateral parenchymal opacities associated with blunting of the costophrenic sulci. Differential considerations include worsening pulmonary edema or multifocal pneumonia. Venous Doppler Study 03/12/20 00:00 IMPRESSION: 1. Positive examination on the left. Acute occlusive thrombus within the left posterior tibial vein. 2. NO EVIDENCE DVT OR SVT IN RIGHT LEG. Assessment and Plan - Diagnosis (1) Hypernatremia Is this a current diagnosis for this admission?: Yes Plan: 03/19/2020-sodium is now 169. Will change to D5W in order serial labs. 03/20/2020-sodium correcting at 0.5 mEq/h approximately. Will increase the D5W to 125 mL an hour. Continue 8 hourly labs. (2) Acute hypoxemic respiratory failure due to COVID-19 Is this a current diagnosis for this admission?: Yes Plan: -Tested positive for Covid 5 days prior to admission -O2 sat 80% on room air as noted by EMS - worsening infiltrates on repeat CXR - US doppler lower ext showed left tibial vein DVT - now placed on bipap 100% FIO2 sats 95% - PRN morphine for anxiety related to dyspnea 03/14 we will continue with her current management. Continue with oxygen support and wean off as tolerated. 03/15 we will continue with same management. Taper oxygen as tolerated. He seems to be having a relatively good day today 03/16 we will continue with supportive therapy, taper oxygen as tolerated. He is down to 50% FiO2 03/17 Taper off Oxygen as tolerated 03/18 respiratory status has improved remarkably 03/19/2020-currently resting on room air. Continue to monitor closely. 03/20/2020-continues to tolerate room air (3) Acute kidney injury superimposed on chronic kidney disease Is this a current diagnosis for this admission?: Yes Plan: -Has a history of chronic kidney disease and kidney stone with nephrostomy tube placement back in 2019 -Crea 4.8>3.4>2.3>2.01 Baseline creatinine 2.6 now -I suspect this is around his baseline creatinine -Fena 0.4% consistent with pre renal -IV fluids stopped 03/14 kidney function is improving 03/18 check labs in a.m. 03/19/2020-due to significant dehydration BUN and creatinine are up. Will monitor with infusion of D5W 03/20/2020-kidney numbers should start trending down with the IV fluids currently in place (4) DVT (deep venous thrombosis) Qualifiers: DVT location: lower extremity Affected thrombotic vein of extremity: tibial Chronicity: acute Laterality: left Qualified Code(s): I82.442 - Acute embolism and thrombosis of left tibial vein Is this a current diagnosis for this admission?: Yes Plan: - D dimer >20 - unable to do a CTA due to renal function but US revealed a lower leg tibial vein DVT - started on therapeutic lovenox - will need AC after discharge 3-6 months 03/14 continue with anticoagulant 03/15 continue with same management 03/16 patient is currently on Lovenox. Will consider changing this to oral anticoagulant. 03/18 patient has been on Lovenox and now is actually contemplating changing him to oral anticoagulant however because his oral intake is poor including his medications I will leave him on Lovenox for now and he should be transitioned over to oral when his intake improves 03/19/2020-continue therapeutic Lovenox at this point. No changes in medications until electrolyte imbalance improves. (5) Dehydration Is this a current diagnosis for this admission?: Yes Plan: 03/19/2020-based on I's and O's he would not think he would be this dehydrated. We will immediately change fluids to D5W. Infuse at 120 mL an hour and this should correct sodium at 0.5 mEq/h. 03/20/2020-continue IV fluids as above (6) Elevated troponin I level Is this a current diagnosis for this admission?: Yes Plan: -Troponin 0.162>0.124 -EKG sinus rhythm no ST elevation -Likely secondary to demand ischemia from hypoxia No Further interventions needed (7) Pneumonia due to COVID-19 virus Is this a current diagnosis for this admission?: Yes Plan: -Tested positive for Covid pneumonia 5 days prior to admission -repeat CXR with worsening infiltrates -Completed remdesivir d4 -received convalescent plasma 1 dose -dexa 6 mg IV daily since March 10 this can likely be discontinued on for a 10-day course. Patient respiratory status has improved -DuoNeb as needed -Vitamin C, vitamin D, zinc -Patient is full code Continue supportive management 03/19/2020-trial room air today. Continue current supplements. Consider decreasing dexamethasone. (8) Hyperkalemia Is this a current diagnosis for this admission?: Yes Plan: 03/19/2020-potassium 5.1. This will decrease with D5W. We will need to monitor closely. - Plan Summary Summary: Plan to DC dexamethasone on 1122. Low up on labs in a.m. Switch to oral anticoagulant when he is able to tolerate orally Need physical therapy once stable - Time Time Spent with patient: 15-24 minutes Medications reviewed and adjusted accordingly: Yes Anticipated Discharge Disposition: Home, Self Care Anticipated Discharge Timeframe: Unknown
[2020-03-20 16:44] LABS: ANION GAP 11 (5-19); BLOOD UREA NITROGEN 105 mg/dL (7-20); CALCIUM 9.5 mg/dL (8.4-10.2); CARBON DIOXIDE 23 mmol/L (22-30); CHLORIDE 127 mmol/L (98-107); GLUCOSE 148 mg/dL (75-110); POTASSIUM 4.8 mmol/L (3.6-5.0)
[2020-03-20] MEDS: MELATONIN 5 MG TABLET PO SCH (21:33)
[2020-03-21] MEDS: DEXTROSE 5%-WATER 1000 ML 1,000 ML IV PRN ×3 (00:44→18:10)
[2020-03-21 00:54] LABS: ANION GAP 9 (5-19); BLOOD UREA NITROGEN 98 mg/dL (7-20); CALCIUM 9.2 mg/dL (8.4-10.2); CARBON DIOXIDE 20 mmol/L (22-30); CHLORIDE 126 mmol/L (98-107); GLUCOSE 145 mg/dL (75-110); POTASSIUM 4.3 mmol/L (3.6-5.0)
[2020-03-21] MEDS: ACETAMINOPHEN 325 MG TABLET PO PRN (09:45)
[2020-03-21] MEDS: CHOLECALCIFEROL (D3) 1,000 UNIT (25 MCG) TABLET PO SCH (09:45)
[2020-03-21] MEDS: FAMOTIDINE 20 MG TABLET PO SCH ×2 (09:45→21:09)
[2020-03-21] MEDS: ZINC SULFATE 220 MG CAPSULE PO SCH (09:46)
[2020-03-21] MEDS: ENOXAPARIN SODIUM INJ 80 MG/0.8 ML DISP.SYRIN SUBCUT SCH ×2 (09:46→21:08)
[2020-03-21] MEDS: ASCORBIC ACID 500 MG TABLET PO SCH ×2 (09:46→18:00)
[2020-03-21 10:00] LABS: HEMATOCRIT 35.4 % (37.9-51.0); HEMOGLOBIN 11.4 g/dL (13.5-17.0); MEAN CORPUSCULAR HEMOGLOBIN 25.9 pg (27.0-33.4); MEAN CORPUSCULAR HGB CONC 32.3 g/dL (32.0-36.0); MEAN CORPUSCULAR VOLUME 80 fl (80-97); PLATELET COUNT 171 10^3/uL (150-450); RED BLOOD COUNT 4.41 10^6/uL (4.35-5.55); WHITE BLOOD COUNT 13.4 10^3/uL (4.0-10.5)
[2020-03-21 10:13] LABS: ANION GAP 9 (5-19); BLOOD UREA NITROGEN 91 mg/dL (7-20); CALCIUM 9.1 mg/dL (8.4-10.2); CARBON DIOXIDE 21 mmol/L (22-30); CHLORIDE 125 mmol/L (98-107); GLUCOSE 135 mg/dL (75-110); POTASSIUM 4.6 mmol/L (3.6-5.0)
--- NOTE | 2020-03-21 10:57 | PDOC PROGRESS REPORT ---
Subjective Date:: 03/21/20 Subjective:: Patient is interactive. He is complaining of some left lower quadrant pain. He did report that he feels dehydrated which in fact is the case. Reason For Visit: COVID,PNEUMONIA Physical Exam Vital Signs: Temp Pulse Resp BP Pulse Ox 97.5 F 85 20 126/97 H 90 L 03/21/20 03:14 03/21/20 07:00 03/21/20 03:14 03/21/20 03:14 03/21/20 03:14 Intake & Output 03/20/20 03/21/20 03/22/20 06:59 06:59 06:59 Intake Total 3378 2200 1000 Output Total 300 200 Balance 3078 2000 1000 Weight 62.1 kg 62.8 kg General appearance: PRESENT: cooperative, mild distress, well-developed Ear exam: PRESENT: normal external ear exam. ABSENT: bleeding, drainage Mouth exam: PRESENT: dry mucosa, tongue midline Respiratory exam: PRESENT: rales - Right side, symmetrical, unlabored. ABSENT: rhonchi, tachypnea, wheezes Cardiovascular exam: PRESENT: RRR - Occasional irregular beats, +S1, +S2. ABSENT: bradycardia, diastolic murmur, irregular rhythm, systolic murmur, tachycardia GI/Abdominal exam: PRESENT: normal bowel sounds, soft. ABSENT: tenderness - Patient reports discomfort but no tenderness noted in the left lower quadrant. Rectal exam: PRESENT: deferred Gentrourinary exam: ABSENT: indwelling catheter Extremities exam: ABSENT: pedal edema Musculoskeletal exam: PRESENT: normal inspection. ABSENT: deformity, dislocation Neurological exam: PRESENT: alert, awake, oriented to person Psychiatric exam: PRESENT: flat affect. ABSENT: agitated, anxious Results Laboratory Results: 03/21/20 09:42 03/21/20 09:42 03/20/20 03/21/20 03/21/20 16:02 00:03 09:42 WBC RBC Hgb Hct MCV MCH MCHC RDW Plt Count Sodium 160.7 H 155.4 H 155.2 H Potassium 4.8 4.3 4.6 Chloride 127 H 126 H 125 H Carbon Dioxide 23 20 L 21 L Anion Gap 11 9 9 BUN 105 H 98 H 91 H Creatinine 2.89 H 2.68 H 2.70 H Est GFR ( Amer) 28 L 31 L 30 L Glucose 148 H 145 H 135 H Calcium 9.5 9.2 9.1 Magnesium 2.8 H 2.7 H 2.4 H 03/21/20 09:42 WBC 13.4 H RBC 4.41 Hgb 11.4 L Hct 35.4 L MCV 80 MCH 25.9 L MCHC 32.3 RDW 14.0 Plt Count 171 Sodium Potassium Chloride Carbon Dioxide Anion Gap BUN Creatinine Est GFR ( Amer) Glucose Calcium Magnesium 03/09/20 03/09/20 03/09/20 12:12 12:12 12:12 Creatine Kinase 45 L Troponin I 0.063 NT-Pro-B Natriuret Pep 155 H 03/09/20 03/10/20 03/10/20 21:20 04:40 10:40 Creatine Kinase Troponin I 0.259 0.162 0.124 NT-Pro-B Natriuret Pep Impressions: Chest X-Ray 03/12/20 00:00 IMPRESSION: Increased diffuse bilateral parenchymal opacities associated with blunting of the costophrenic sulci. Differential considerations include worsening pulmonary edema or multifocal pneumonia. Venous Doppler Study 03/12/20 00:00 IMPRESSION: 1. Positive examination on the left. Acute occlusive thrombus within the left posterior tibial vein. 2. NO EVIDENCE DVT OR SVT IN RIGHT LEG. Assessment and Plan - Diagnosis (1) Hypernatremia Is this a current diagnosis for this admission?: Yes Plan: 03/19/2020-sodium is now 169. Will change to D5W in order serial labs. 03/20/2020-sodium correcting at 0.5 mEq/h approximately. Will increase the D5W to 125 mL an hour. Continue 8 hourly labs. (2) Acute hypoxemic respiratory failure due to COVID-19 Is this a current diagnosis for this admission?: Yes (3) Acute kidney injury superimposed on chronic kidney disease Is this a current diagnosis for this admission?: Yes (4) DVT (deep venous thrombosis) Qualifiers: DVT location: lower extremity Affected thrombotic vein of extremity: tibial Chronicity: acute Laterality: left Qualified Code(s): I82.442 - Acute embolism and thrombosis of left tibial vein Is this a current diagnosis for this admission?: Yes (5) Dehydration Is this a current diagnosis for this admission?: Yes (6) Elevated troponin I level Is this a current diagnosis for this admission?: Yes (7) Pneumonia due to COVID-19 virus Is this a current diagnosis for this admission?: Yes (8) Hyperkalemia Is this a current diagnosis for this admission?: Yes - Plan Summary Summary: Plan to DC dexamethasone on 1123. Low up on labs in a.m. Switch to oral anticoagulant when he is able to tolerate orally Need physical therapy once stable 03/21/2020 Hypernatremia-sodium continues to correct. Will continue current regimen. Acute on chronic kidney failure-his creatinine is approximately at his baseline. BUN is still elevated. This should improve with the IV fluids. Respiratory failure with Covid pneumonia-patient is tolerating room air for extended periods. We will continue to achieve continuous room air status. The patient seems to be more participatory in the encounter. Hopefully as the BUN and electrolytes correct further he will feel better. - Time Time Spent with patient: 15-24 minutes Medications reviewed and adjusted accordingly: Yes Anticipated Discharge Disposition: Home with Home Health Anticipated Discharge Timeframe: within 72 hours
[2020-03-21 11:37] LABS: APPEARANCE,URINE SLIGHTLY-CLOUDY; BILIRUBIN,URINE NEGATIVE (NEGATIVE); COLOR,URINE YELLOW; GLUCOSE, URINE NEGATIVE (NEGATIVE); KETONES,URINE NEGATIVE (NEGATIVE); LEUKOCYTE ESTERASE,URINE NEGATIVE (NEGATIVE); NITRITE,URINE NEGATIVE (NEGATIVE); PROTEIN,URINE >=500 mg/dL (NEGATIVE); URINE SPECIFIC GRAVITY 1.014; UROBILINOGEN,URINE NEGATIVE mg/dL (<2.0)
--- NOTE | 2020-03-21 19:41 | EKG REPORT ---
SEVERITY:- ABNORMAL ECG - SINUS RHYTHM VENTRICULAR PREMATURE COMPLEX LVH WITH SECONDARY REPOLARIZATION ABNORMALITY : Confirmed by: Seth Patricia MD 21-Mar-2020 19:40:13
[2020-03-21] MEDS: MELATONIN 5 MG TABLET PO SCH (21:09)
[2020-03-22] MEDS: DEXTROSE 5%-WATER 1000 ML 1,000 ML IV PRN ×3 (03:05→23:11)
[2020-03-22] MEDS: ASCORBIC ACID 500 MG TABLET PO SCH ×2 (10:40→18:42)
[2020-03-22] MEDS: CHOLECALCIFEROL (D3) 1,000 UNIT (25 MCG) TABLET PO SCH (10:40)
[2020-03-22] MEDS: FAMOTIDINE 20 MG TABLET PO SCH ×2 (10:40→21:54)
[2020-03-22] MEDS: ZINC SULFATE 220 MG CAPSULE PO SCH (10:40)
[2020-03-22] MEDS: ENOXAPARIN SODIUM INJ 80 MG/0.8 ML DISP.SYRIN SUBCUT SCH ×2 (10:55→21:55)
--- NOTE | 2020-03-22 14:41 | PDOC PROGRESS REPORT ---
Subjective Date:: 03/22/20 Subjective:: The patient is resting in bed. He is not really hungry. In fact he was spittin g out a piece of turkey that he hardly chewed. Nursing said he was quite interactive verbally earlier today. This afternoon he seems somewhat subdued. Reason For Visit: COVID,PNEUMONIA Physical Exam Vital Signs: Temp Pulse Resp BP Pulse Ox 99.2 F 117 H 19 122/80 86 L 03/22/20 07:29 03/22/20 07:29 03/22/20 07:29 03/22/20 07:29 03/22/20 07:29 Intake & Output 03/21/20 03/22/20 03/23/20 06:59 06:59 06:59 Intake Total 2200 3000 1000 Output Total 200 750 Balance 2000 2250 1000 Weight 62.8 kg 62.4 kg General appearance: PRESENT: no acute distress, cooperative, thin Head exam: PRESENT: atraumatic, normocephalic Mouth exam: PRESENT: moist, tongue midline Respiratory exam: PRESENT: clear to auscultation ernestine, symmetrical, unlabored. ABSENT: prolonged expiratory phas, rales, rhonchi, tachypnea, wheezes Cardiovascular exam: PRESENT: RRR, +S1, +S2. ABSENT: bradycardia, diastolic murmur, irregular rhythm, systolic murmur, tachycardia GI/Abdominal exam: PRESENT: normal bowel sounds, soft. ABSENT: distended, t enderness Rectal exam: PRESENT: deferred Gentrourinary exam: ABSENT: indwelling catheter Extremities exam: ABSENT: pedal edema Musculoskeletal exam: PRESENT: normal inspection - Except decreased muscle mass thenar eminence and interosseous muscles. ABSENT: deformity, dislocation Neurological exam: PRESENT: alert, awake, oriented to person, oriented to place, other - Not as talkative as I would have expected Psychiatric exam: PRESENT: flat affect. ABSENT: agitated, anxious Focused psych exam: ABSENT: delusional, paranoid, restlessness Skin exam: PRESENT: dry, normal color, warm. ABSENT: rash Results Laboratory Results: 03/21/20 09:42 03/21/20 09:42 03/09/20 03/09/20 03/09/20 12:12 12:12 12:12 Creatine Kinase 45 L Troponin I 0.063 NT-Pro-B Natriuret Pep 155 H 03/09/20 03/10/20 03/10/20 21:20 04:40 10:40 Creatine Kinase Troponin I 0.259 0.162 0.124 NT-Pro-B Natriuret Pep Impressions: Chest X-Ray 03/12/20 00:00 IMPRESSION: Increased diffuse bilateral parenchymal opacities associated with blunting of the costophrenic sulci. Differential considerations include worsening pulmonary edema or multifocal pneumonia. Venous Doppler Study 03/12/20 00:00 IMPRESSION: 1. Positive examination on the left. Acute occlusive thrombus within the left posterior tibial vein. 2. NO EVIDENCE DVT OR SVT IN RIGHT LEG. Assessment and Plan - Diagnosis (1) Hypernatremia Is this a current diagnosis for this admission?: Yes (2) Acute hypoxemic respiratory failure due to COVID-19 Is this a current diagnosis for this admission?: Yes (3) Acute kidney injury superimposed on chronic kidney disease Is this a current diagnosis for this admission?: Yes (4) DVT (deep venous thrombosis) Qualifiers: DVT location: lower extremity Affected thrombotic vein of extremity: tibial Chronicity: acute Laterality: left Qualified Code(s): I82.442 - Acute embolism and thrombosis of left tibial vein Is this a current diagnosis for this admission?: Yes (5) Dehydration Is this a current diagnosis for this admission?: Yes (6) Elevated troponin I level Is this a current diagnosis for this admission?: Yes (7) Pneumonia due to COVID-19 virus Is this a current diagnosis for this admission?: Yes (8) Hyperkalemia Is this a current diagnosis for this admission?: Yes (9) Critical illness myopathy Is this a current diagnosis for this admission?: Yes - Plan Summary Summary: Plan to DC dexamethasone on 1123. Low up on labs in a.m. Switch to oral anticoagulant when he is able to tolerate orally Need physical therapy once stable 03/21/2020 Hypernatremia-sodium continues to correct. Will continue current regimen. Acute on chronic kidney failure-his creatinine is approximately at his baseline. BUN is still elevated. This should improve with the IV fluids. Respiratory failure with Covid pneumonia-patient is tolerating room air for extended periods. We will continue to achieve continuous room air status. The patient seems to be more participatory in the encounter. Hopefully as the BUN and electrolytes correct further he will feel better. 03/22/2020 I did not check laboratory studies today. Will recheck tomorrow including D- dimer and CRP Patient is on room air and from a respiratory status is stable and recovered Renal function was slowly improving. Creatinine was at baseline. BUN was still markedly elevated. Continuing IV fluid and encourage p.o. fluid. Hypernatremia was consistently improving. Expect with tomorrow's labs will be within the normal range. Will check calcium and magnesium as well. The patient is profoundly weak. This is likely from the critical illness secondary to Covid infection. Now that he is stable from a respiratory saji dpoint we will ask physical and occupational therapies to see the patient. I am also checking a morning cortisol level to see if the patient might be adrenally insufficient with his acute illness. We will try and encourage appetite. If there is no improvement then consider an appetite stimulant. Consider changing to an oral anticoagulant over the next few days. Await D- dimer results. No further evidence of complications from his DVT. - Time Time Spent with patient: 15-24 minutes Medications reviewed and adjusted accordingly: Yes Anticipated Discharge Disposition: Home with Home Health - Or shelter facility Anticipated Discharge Timeframe: Unknown
[2020-03-22] MEDS: MELATONIN 5 MG TABLET PO SCH (21:54)
[2020-03-22] MEDS: ACETAMINOPHEN 325 MG TABLET PO PRN (23:11)
[2020-03-23 05:24] LABS: HEMOGLOBIN 11.1 g/dL (13.5-17.0); MEAN CORPUSCULAR HEMOGLOBIN 25.3 pg (27.0-33.4); MEAN CORPUSCULAR HGB CONC 31.7 g/dL (32.0-36.0); MEAN CORPUSCULAR VOLUME 80 fl (80-97); PLATELET COUNT 129 10^3/uL (150-450); RED BLOOD COUNT 4.37 10^6/uL (4.35-5.55); RED CELL DISTRIBUTION WIDTH 13.9 % (11.5-14.0); WHITE BLOOD COUNT 17.9 10^3/uL (4.0-10.5)
[2020-03-23 05:57] LABS: ANION GAP 12 (5-19); BLOOD UREA NITROGEN 88 mg/dL (7-20); CARBON DIOXIDE 20 mmol/L (22-30); CHLORIDE 112 mmol/L (98-107); GLUCOSE 143 mg/dL (75-110); POTASSIUM 4.6 mmol/L (3.6-5.0)
[2020-03-23 06:13] LABS: C-REACTIVE PROTEIN 160.3 mg/L (<10.0)
[2020-03-23 09:24] LABS: AMORPHOUS SEDIMENT,URINE TRACE /HPF; APPEARANCE,URINE CLOUDY; BILIRUBIN,URINE NEGATIVE (NEGATIVE); COLOR,URINE YELLOW; GLUCOSE, URINE NEGATIVE (NEGATIVE); KETONES,URINE NEGATIVE (NEGATIVE); LEUKOCYTE ESTERASE,URINE NEGATIVE (NEGATIVE); NITRITE,URINE NEGATIVE (NEGATIVE); PROTEIN,URINE >=500 mg/dL (NEGATIVE); URINE SPECIFIC GRAVITY 1.013
[2020-03-23] MEDS: NORMAL SALINE 1000 ML 1,000 ML IV PRN ×3 (10:44→22:43)
[2020-03-23] MEDS: ZINC SULFATE 220 MG CAPSULE PO SCH (10:49)
[2020-03-23] MEDS: FAMOTIDINE 20 MG TABLET PO SCH (10:49)
[2020-03-23] MEDS: ASCORBIC ACID 500 MG TABLET PO SCH ×2 (10:49→17:25)
[2020-03-23] MEDS: CHOLECALCIFEROL (D3) 1,000 UNIT (25 MCG) TABLET PO SCH (10:58)
[2020-03-23] MEDS: ENOXAPARIN SODIUM INJ 80 MG/0.8 ML DISP.SYRIN SUBCUT SCH (11:03)
--- NOTE | 2020-03-23 14:42 | PDOC PROGRESS REPORT ---
Subjective Date:: 03/23/20 Subjective:: The patient reports that his been having significant knee pain. He states that he has a history of gout. I spoke with physical therapy today's said that he is quite unsteady on his feet but the knee pain certainly could be contributing. Reason For Visit: COVID,PNEUMONIA Physical Exam Vital Signs: Temp Pulse Resp BP Pulse Ox 100.1 F 117 H 16 105/74 100 03/23/20 11:59 03/23/20 11:59 03/23/20 11:59 03/23/20 11:59 03/23/20 11:59 Intake & Output 03/22/20 03/23/20 03/24/20 06:59 06:59 06:59 Intake Total 3000 2474 120 Output Total 750 400 Balance 2250 2074 120 Weight 62.4 kg 63.4 kg General appearance: PRESENT: cooperative, mild distress, thin Head exam: PRESENT: atraumatic, normocephalic Ear exam: PRESENT: normal external ear exam. ABSENT: bleeding, drainage Teeth exam: PRESENT: poor dentation Respiratory exam: PRESENT: clear to auscultation ernestine - Anteriorly, unlabored. ABSENT: rales, tachypnea, wheezes Cardiovascular exam: PRESENT: RRR, +S1, +S2. ABSENT: bradycardia, diastolic murmur, irregular rhythm, systolic murmur, tachycardia GI/Abdominal exam: PRESENT: normal bowel sounds, soft. ABSENT: distended, guarding, tenderness Rectal exam: PRESENT: deferred Gentrourinary exam: ABSENT: indwelling catheter Extremities exam: PRESENT: joint swelling - The patient is very thin legs but the knees are somewhat enlarged consistent with arthritis. Neurological exam: PRESENT: alert, awake, oriented to person, other - Still having some difficulty conveying his thoughts. Psychiatric exam: PRESENT: flat affect. ABSENT: agitated, anxious Skin exam: PRESENT: dry, warm. ABSENT: rash Results Laboratory Results: 03/23/20 04:30 03/23/20 04:30 03/23/20 03/23/20 03/23/20 04:30 04:30 08:09 WBC 17.9 H RBC 4.37 Hgb 11.1 L Hct 35.0 L MCV 80 MCH 25.3 L MCHC 31.7 L RDW 13.9 Plt Count 129 L Sodium 143.8 Potassium 4.6 Chloride 112 H Carbon Dioxide 20 L Anion Gap 12 BUN 88 H Creatinine 3.38 H Est GFR ( Amer) 23 L Glucose 143 H Calcium 9.0 Magnesium 2.2 C-Reactive Protein 160.3 H Urine Color YELLOW Urine Appearance CLOUDY Urine pH 5.0 Ur Specific [place] 1.013 Urine Protein >=500 H Urine Glucose (UA) NEGATIVE Urine Ketones NEGATIVE Urine Blood SMALL H Urine Nitrite NEGATIVE Ur Leukocyte Esterase NEGATIVE Urine WBC (Auto) 2 Urine RBC (Auto) 2 03/09/20 03/09/20 03/09/20 12:12 12:12 12:12 Creatine Kinase 45 L Troponin I 0.063 NT-Pro-B Natriuret Pep 155 H 03/09/20 03/10/20 03/10/20 21:20 04:40 10:40 Creatine Kinase Troponin I 0.259 0.162 0.124 NT-Pro-B Natriuret Pep Impressions: Chest X-Ray 03/12/20 00:00 IMPRESSION: Increased diffuse bilateral parenchymal opacities associated with blunting of the costophrenic sulci. Differential considerations include worsening pulmonary edema or multifocal pneumonia. Venous Doppler Study 03/12/20 00:00 IMPRESSION: 1. Positive examination on the left. Acute occlusive thrombus within the left posterior tibial vein. 2. NO EVIDENCE DVT OR SVT IN RIGHT LEG. Assessment and Plan - Diagnosis (1) Hypernatremia Is this a current diagnosis for this admission?: Yes (2) Acute hypoxemic respiratory failure due to COVID-19 Is this a current diagnosis for this admission?: Yes (3) Acute kidney injury superimposed on chronic kidney disease Is this a current diagnosis for this admission?: Yes (4) DVT (deep venous thrombosis) Qualifiers: DVT location: lower extremity Affected thrombotic vein of extremity: tibial Chronicity: acute Laterality: left Qualified Code(s): I82.442 - Acute embolism and thrombosis of left tibial vein Is this a current diagnosis for this admission?: Yes (5) Dehydration Is this a current diagnosis for this admission?: Yes (6) Elevated troponin I level Is this a current diagnosis for this admission?: Yes (7) Pneumonia due to COVID-19 virus Is this a current diagnosis for this admission?: Yes (8) Hyperkalemia Is this a current diagnosis for this admission?: Yes (9) Critical illness myopathy Is this a current diagnosis for this admission?: Yes (10) Gout due to renal impairment Qualifiers: Gout site: knee Laterality: unspecified laterality Presence of tophus: without tophus Is this a current diagnosis for this admission?: Yes - Plan Summary Summary: Plan to DC dexamethasone on 1123. Low up on labs in a.m. Switch to oral anticoagulant when he is able to tolerate orally Need physical therapy once stable 03/21/2020 Hypernatremia-sodium continues to correct. Will continue current regimen. Acute on chronic kidney failure-his creatinine is approximately at his baseline. BUN is still elevated. This should improve with the IV fluids. Respiratory failure with Covid pneumonia-patient is tolerating room air for extended periods. We will continue to achieve continuous room air status. The patient seems to be more participatory in the encounter. Hopefully as the BUN and electrolytes correct further he will feel better. 03/22/2020 I did not check laboratory studies today. Will recheck tomorrow including D- dimer and CRP Patient is on room air and from a respiratory status is stable and recovered Renal function was slowly improving. Creatinine was at baseline. BUN was still markedly elevated. Continuing IV fluid and encourage p.o. fluid. Hypernatremia was consistently improving. Expect with tomorrow's labs will be within the normal range. Will check calcium and magnesium as well. The patient is profoundly weak. This is likely from the critical illness secondary to Covid infection. Now that he is stable from a respiratory standpoint we will ask physical and occupational therapies to see the patient. I am also checking a morning cortisol level to see if the patient might be adrenally insufficient with his acute illness. We will try and encourage appetite. If there is no improvement then consider an appetite stimulant. Consider changing to an oral anticoagulant over the next few days. Await D- dimer results. No further evidence of complications from his DVT. 03/23/2020 I did get a chance to speak to the patient's . She states that her conversation today was rewarding and that she could actually understand everyth ing he was seen. She was very pleased with that. She did confirm his history of gout. I explained that his white blood cell count was up and that we were ruling out infection. His chest x-ray actually looks better than on admission. For his gout I have added a uric acid level but started him on colchicine for the time being. Unfortunately his creatinine has increased. His BUN remains elevated. He is no longer on D5W and I have him on normal saline. We will monitor his sodium. He might require half-normal saline. His chest x-ray is are looking better. His CRP, surprisingly, is 160. I do not see an earlier CRP level. D-dimer is much improved. Is down to 1.88 and at admission it was greater than 20. I will reassess the patient tomorrow. If he continues to improve slowly then I do not feel there is a need for imaging of his brain. His sodium corrected at a reasonable rate and so there should not be any cerebral edema. - Time Time Spent with patient: 15-24 minutes Medications reviewed and adjusted accordingly: Yes Anticipated Discharge Disposition: Home with Home Health Anticipated Discharge Timeframe: Unknown
[2020-03-23] MEDS ORDERED: ONDANSETRON HCL INJ/PF 4 MG/2 ML SDV IV PRN (15:00)
--- NOTE | 2020-03-23 15:33 | RADIOLOGY REPORT (SQ) ---
EXAM DESCRIPTION: CHEST SINGLE VIEW IMAGES COMPLETED DATE/TIME: 03/23/2020 2:08 pm REASON FOR STUDY: Pneumonia. COMPARISON: EXAM PARAMETERS: NUMBER OF VIEWS: One view. TECHNIQUE: Single frontal radiographic view of the chest acquired. RADIATION DOSE: NA LIMITATIONS: None. FINDINGS: LUNGS AND PLEURA: Improving aeration in both lungs with persistent mild patchy areas of co nsolidation. No pleural effusion or pneumothorax. MEDIASTINUM AND HILAR STRUCTURES: No masses. Contour normal. HEART AND VASCULAR STRUCTURES: Heart normal in size. Normal vasculature. BONES: No acute findings. HARDWARE: None in the chest. OTHER: No other significant finding. IMPRESSION: Improving aeration. TECHNICAL DOCUMENTATION: JOB ID: [id number] [employer]- All Rights Reserved Reading location - IP/workstation name: [email or web address]
[2020-03-23] MEDS: COLCHICINE 0.6 MG TABLET PO SCH (17:25)
[2020-03-23] MEDS: MELATONIN 5 MG TABLET PO SCH (21:14)
[2020-03-23] MEDS: ACETAMINOPHEN 325 MG TABLET PO PRN (23:05)
[2020-03-24] MEDS: NORMAL SALINE 1000 ML 1,000 ML IV PRN ×3 (05:02→17:26)
[2020-03-24 06:00] LABS: HEMATOCRIT 25.4 % (37.9-51.0); MEAN CORPUSCULAR HEMOGLOBIN 26.1 pg (27.0-33.4); MEAN CORPUSCULAR HGB CONC 32.8 g/dL (32.0-36.0); MEAN CORPUSCULAR VOLUME 80 fl (80-97); RED BLOOD COUNT 3.18 10^6/uL (4.35-5.55); RED CELL DISTRIBUTION WIDTH 13.8 % (11.5-14.0)
[2020-03-24 06:04] LABS: ALBUMIN 2.2 g/dL (3.5-5.0); ANION GAP 12 (5-19); BLOOD UREA NITROGEN 81 mg/dL (7-20); CALCIUM 8.2 mg/dL (8.4-10.2); CARBON DIOXIDE 17 mmol/L (22-30); CHLORIDE 113 mmol/L (98-107); GLUCOSE 164 mg/dL (75-110); PHOSPHORUS 3.5 mg/dL (2.5-4.5); POTASSIUM 3.9 mmol/L (3.6-5.0)
[2020-03-24 06:21] LABS: HEMOGLOBIN 8.3 g/dL (13.5-17.0)
[2020-03-24 06:48] LABS: PLATELET COUNT 75 10^3/uL (150-450)
[2020-03-24 07:36] LABS: ERYTHROCYTE SEDIMENTATION RATE > 120 mm/hr (0-20)
[2020-03-24] MEDS: ASCORBIC ACID 500 MG TABLET PO SCH ×2 (09:31→17:25)
[2020-03-24] MEDS: ZINC SULFATE 220 MG CAPSULE PO SCH (09:31)
[2020-03-24] MEDS: FAMOTIDINE 20 MG TABLET PO SCH (09:31)
[2020-03-24] MEDS: CHOLECALCIFEROL (D3) 1,000 UNIT (25 MCG) TABLET PO SCH (09:31)
[2020-03-24] MEDS: COLCHICINE 0.6 MG TABLET PO SCH (09:31)
[2020-03-24] MEDS ORDERED: ENOXAPARIN SODIUM INJ 80 MG/0.8 ML DISP.SYRIN SUBCUT SCH (10:00)
--- NOTE | 2020-03-24 14:03 | PDOC PROGRESS REPORT ---
Subjective Date:: 03/24/20 Subjective:: Patient is resting in bed. He does not appear to be in discomfort. He is on nasal cannula. He has no new complaints but he reports that his knees are still quite painful. Reason For Visit: COVID,PNEUMONIA Physical Exam Vital Signs: Temp Pulse Resp BP Pulse Ox 99.3 F 112 H 22 H 114/71 94 03/24/20 11:05 03/24/20 11:05 03/24/20 11:05 03/24/20 11:05 03/24/20 11:05 Intake & Output 03/23/20 03/24/20 03/25/20 06:59 06:59 06:59 Intake Total 2474 3990 1000 Output Total 400 300 Balance 2074 3690 1000 Weight 63.4 kg 66.2 kg General appearance: PRESENT: cooperative, mild distress, well-developed Head exam: PRESENT: atraumatic, normocephalic Eye exam: PRESENT: conjunctiva pale. ABSENT: scleral icterus Ear exam: PRESENT: normal external ear exam. ABSENT: bleeding, drainage Mouth exam: PRESENT: moist, tongue midline Respiratory exam: PRESENT: rales - Fine bilateral, symmetrical, unlabored. ABSENT: rhonchi, tachypnea, wheezes Cardiovascular exam: PRESENT: RRR, +S1, +S2. ABSENT: bradycardia, diastolic murmur, irregular rhythm, systolic murmur, tachycardia GI/Abdominal exam: PRESENT: normal bowel sounds, soft. ABSENT: distended, guarding, tenderness Rectal exam: PRESENT: deferred Gentrourinary exam: ABSENT: indwelling catheter Extremities exam: PRESENT: joint swelling - Bilateral knees with chronic arthritic changes. ABSENT: pedal edema, +1 edema Musculoskeletal exam: PRESENT: ambulatory - Still quite weak, normal inspection. ABSENT: deformity, dislocation Neurological exam: PRESENT: alert, awake, oriented to person, oriented to place, oriented to situation. ABSENT: altered Psychiatric exam: PRESENT: flat affect. ABSENT: agitated, anxious Focused psych exam: ABSENT: delusional, paranoid, restlessness Skin exam: PRESENT: dry, warm. ABSENT: rash Results Laboratory Results: 03/24/20 05:09 03/24/20 05:09 03/24/20 03/24/20 05:09 05:09 WBC 12.0 H RBC 3.18 L Hgb 8.3 L D Hct 25.4 L MCV 80 MCH 26.1 L MCHC 32.8 RDW 13.8 Plt Count 75 L Sodium 141.5 Potassium 3.9 Chloride 113 H Carbon Dioxide 17 L Anion Gap 12 BUN 81 H Creatinine 3.48 H Est GFR ( Amer) 23 L Glucose 164 H Uric Acid 9.0 H Calcium 8.2 L Phosphorus 3.5 Albumin 2.2 L 03/09/20 03/09/20 03/09/20 12:12 12:12 12:12 Creatine Kinase 45 L Troponin I 0.063 NT-Pro-B Natriuret Pep 155 H 03/09/20 03/10/20 03/10/20 21:20 04:40 10:40 Creatine Kinase Troponin I 0.259 0.162 0.124 NT-Pro-B Natriuret Pep Impressions: Venous Doppler Study 03/12/20 00:00 IMPRESSION: 1. Positive examination on the left. Acute occlusive thrombus within the left posterior tibial vein. 2. NO EVIDENCE DVT OR SVT IN RIGHT LEG. Chest X-Ray 03/23/20 00:00 IMPRESSION: Improving aeration. Assessment and Plan - Diagnosis (1) Hypernatremia Is this a current diagnosis for this admission?: Yes (2) Acute hypoxemic respiratory failure due to COVID-19 Is this a current diagnosis for this admission?: Yes (3) Acute kidney injury superimposed on chronic kidney disease Is this a current diagnosis for this admission?: Yes (4) DVT (deep venous thrombosis) Qualifiers: DVT location: lower extremity Affected thrombotic vein of extremity: tibial Chronicity: acute Laterality: left Qualified Code(s): I82.442 - Acute embolism and thrombosis of left tibial vein Is this a current diagnosis for this admission?: Yes (5) Dehydration Is this a current diagnosis for this admission?: Yes (6) Elevated troponin I level Is this a current diagnosis for this admission?: Yes (7) Pneumonia due to COVID-19 virus Is this a current diagnosis for this admission?: Yes (8) Hyperkalemia Is this a current diagnosis for this admission?: Yes (9) Critical illness myopathy Is this a current diagnosis for this admission?: Yes (10) Gout due to renal impairment Qualifiers: Gout site: knee Laterality: unspecified laterality Presence of tophus: without tophus Is this a current diagnosis for this admission?: Yes - Plan Summary Summary: Plan to DC dexamethasone on 1123. Low up on labs in a.m. Switch to oral anticoagulant when he is able to tolerate orally Need physical therapy once stable 03/21/2020 Hypernatremia-sodium continues to correct. Will continue current regimen. Acute on chronic kidney failure-his creatinine is approximately at his baseline. BUN is still elevated. This should improve with the IV fluids. Respiratory failure with Covid pneumonia-patient is tolerating room air for extended periods. We will continue to achieve continuous room air status. The patient seems to be more participatory in the encounter. Hopefully as the BUN and electrolytes correct further he will feel better. 03/22/2020 I did not check laboratory studies today. Will recheck tomorrow including D- dimer and CRP Patient is on room air and from a respiratory status is stable and recovered Renal function was slowly improving. Creatinine was at baseline. BUN was still markedly elevated. Continuing IV fluid and encourage p.o. fluid. Hypernatremia was consistently improving. Expect with tomorrow's labs will be within the normal range. Will check calcium and magnesium as well. The patient is profoundly weak. This is likely from the critical illness secondary to Covid infection. Now that he is stable from a respiratory standpoint we will ask physical and occupational therapies to see the patient. I am also checking a morning cortisol level to see if the patient might be adrenally insufficient with his acute illness. We will try and encourage appetite. If there is no improvement then consider an appetite stimulant. Consider changing to an oral anticoagulant over the next few days. Await D-dimer results. No further evidence of complications from his DVT. 03/23/2020 I did get a chance to speak to the patient's . She states that her conversation today was rewarding and that she could actually understand everything he was seen. She was very pleased with that. She did confirm his history of gout. I explained that his white blood cell count was up and that we were ruling out infection. His chest x-ray actually looks better than on admission. For his gout I have added a uric acid level but started him on colchicine for the time being. Unfortunately his creatinine has increased. His BUN remains elevated. He is no longer on D5W and I have him on normal saline. We will monitor his sodium. He might require half-normal saline. His chest x-ray is are looking better. His CRP, surprisingly, is 160. I do not see an earlier CRP level. D-dimer is much improved. Is down to 1.88 and at admission it was greater than 20. I will reassess the patient tomorrow. If he continues to improve slowly then I do not feel there is a need for imaging of his brain. His sodium corrected at a reasonable rate and so there should not be any cerebral edema. 03/24/2020 Once again I spoke to the patient's . She provided information about what sounds like a cervical spinal cord injury years ago. She states he had a prolonged 2-month stay with rehab hospital. We will continue physical therapy. This may explain his weakness and may prolong his physical recovery. His white cell count is improved. We will continue current management. His uric acid is high. He is on colchicine. I will resume low-dose Solu- Medrol. DVT-I am switching to direct oral anticoagulant at this point. This will make it easier at the time of discharge. Chronic renal failure-creatinine is back up again. His albumin is only 2.2. I am going to give 25 g of albumin to help perfusion by increasing his oncotic pressure. Sodium is better at 141.5 with a normal potassium at 3.9. Glucose is 164. We will need to monitor especially with the small dose of steroids. - Time Time Spent with patient: 15-24 minutes Medications reviewed and adjusted accordingly: Yes Anticipated Discharge Disposition: Home with Home Health Anticipated Discharge Timeframe: Unknown
[2020-03-24] MEDS: ALBUMIN HUMAN 12.5 GM/50 ML RTUINJ IV SCH ×2 (15:00→17:26)
[2020-03-24] MEDS: APIXABAN 5 MG TABLET PO SCH (17:26)
[2020-03-24] MEDS: MELATONIN 5 MG TABLET PO SCH (22:43)
[2020-03-25] MEDS: NORMAL SALINE 1000 ML 1,000 ML IV PRN ×2 (00:14→05:53)
[2020-03-25] MEDS: COLCHICINE 0.6 MG TABLET PO SCH (09:20)
[2020-03-25] MEDS: ACETAMINOPHEN 325 MG TABLET PO PRN (09:20)
[2020-03-25] MEDS: CHOLECALCIFEROL (D3) 1,000 UNIT (25 MCG) TABLET PO SCH (09:20)
[2020-03-25] MEDS: ZINC SULFATE 220 MG CAPSULE PO SCH (09:20)
[2020-03-25] MEDS: ASCORBIC ACID 500 MG TABLET PO SCH ×2 (09:20→17:13)
[2020-03-25] MEDS: METHYLPREDNISOLONE INJ 40 MG/1 ML SDV IV SCH (09:20)
[2020-03-25] MEDS: APIXABAN 5 MG TABLET PO SCH ×2 (09:20→17:12)
[2020-03-25] MEDS: FAMOTIDINE 20 MG TABLET PO SCH (09:20)
[2020-03-25] MEDS ORDERED: BUMETANIDE INJ/PF 1 MG/4 ML SDV IV ONE (11:30)
--- NOTE | 2020-03-25 11:46 | PDOC PROGRESS REPORT ---
Subjective Date:: 03/25/20 Subjective:: Patient discovered a phone talking to his . He is slightly tachypneic. He reports that he has been tachypneic all day. Reason For Visit: COVID,PNEUMONIA Physical Exam Vital Signs: Temp Pulse Resp BP Pulse Ox 98.8 F 113 H 26 H 145/81 H 90 L 03/25/20 07:42 03/25/20 07:42 03/25/20 07:42 03/25/20 07:42 03/25/20 07:42 Intake & Output 03/24/20 03/25/20 03/26/20 06:59 06:59 06:59 Intake Total 3990 4809 1000 Output Total 300 1125 Balance 3690 3684 1000 Weight 66.2 kg 66.7 kg General appearance: PRESENT: mild distress Respiratory exam: PRESENT: rales, symmetrical, tachypnea. ABSENT: accessory muscle use, rhonchi, wheezes Cardiovascular exam: PRESENT: RRR, +S1, +S2 GI/Abdominal exam: PRESENT: normal bowel sounds, soft. 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 Psychiatric exam: PRESENT: anxious. ABSENT: agitated Results Laboratory Results: 03/24/20 05:09 03/24/20 05:09 03/09/20 03/09/20 03/09/20 12:12 12:12 12:12 Creatine Kinase 45 L Troponin I 0.063 NT-Pro-B Natriuret Pep 155 H 03/09/20 03/10/20 03/10/20 21:20 04:40 10:40 Creatine Kinase Troponin I 0.259 0.162 0.124 NT-Pro-B Natriuret Pep Impressions: Venous Doppler Study 03/12/20 00:00 IMPRESSION: 1. Positive examination on the left. Acute occlusive thrombus within the left posterior tibial vein. 2. NO EVIDENCE DVT OR SVT IN RIGHT LEG. Chest X-Ray 03/23/20 00:00 IMPRESSION: Improving aeration. Assessment and Plan - Diagnosis (1) Hypernatremia Is this a current diagnosis for this admission?: Yes (2) Acute hypoxemic respiratory failure due to COVID-19 Is this a current diagnosis for this admission?: Yes (3) Acute kidney injury superimposed on chronic kidney disease Is this a current diagnosis for this admission?: Yes (4) DVT (deep venous thrombosis) Qualifiers: DVT location: lower extremity Affected thrombotic vein of extremity: tibial Chronicity: acute Laterality: left Qualified Code(s): I82.442 - Acute embolism and thrombosis of left tibial vein Is this a current diagnosis for this admission?: Yes (5) Dehydration Is this a current diagnosis for this admission?: Yes (6) Elevated troponin I level Is this a current diagnosis for this admission?: Yes (7) Pneumonia due to COVID-19 virus Is this a current diagnosis for this admission?: Yes (8) Hyperkalemia Is this a current diagnosis for this admission?: Yes (9) Critical illness myopathy Is this a current diagnosis for this admission?: Yes (10) Gout due to renal impairment Qualifiers: Gout site: knee Laterality: unspecified laterality Presence of tophus: without tophus Is this a current diagnosis for this admission?: Yes - Plan Summary Summary: Plan to DC dexamethasone on 1123. Low up on labs in a.m. Switch to oral anticoagulant when he is able to tolerate orally Need physical therapy once stable 03/21/2020 Hypernatremia-sodium continues to correct. Will continue current regimen. Acute on chronic kidney failure-his creatinine is approximately at his baseline. BUN is still elevated. This should improve with the IV fluids. Respiratory failure with Covid pneumonia-patient is tolerating room air for extended periods. We will continue to achieve continuous room air status. The patient seems to be more participatory in the encounter. Hopefully as the BUN and electrolytes correct further he will feel better. 03/22/2020 I did not check laboratory studies today. Will recheck tomorrow including D- dimer and CRP Patient is on room air and from a respiratory status is stable and recovered Renal function was slowly improving. Creatinine was at baseline. BUN was still markedly elevated. Continuing IV fluid and encourage p.o. fluid. Hypernatremia was consistently improving. Expect with tomorrow's labs will be within the normal range. Will check calcium and magnesium as well. The patient is profoundly weak. This is likely from the critical illness secondary to Covid infection. Now that he is stable from a respiratory standpoint we will ask physical and occupational therapies to see the patient. I am also checking a morning cortisol level to see if the patient might be adrenally insufficient with his acute illness. We will try and encourage appetite. If there is no improvement then consider an appetite stimulant. Consider changing to an oral anticoagulant over the next few days. Await D- dimer results. No further evidence of complications from his DVT. 03/23/2020 I did get a chance to speak to the patient's . She states that her conversation today was rewarding and that she could actually understand everything he was seen. She was very pleased with that. She did confirm his history of gout. I explained that his white blood cell count was up and that we were ruling out infection. His chest x-ray actually looks better than on admission. For his gout I have added a uric acid level but started him on colchicine for the time being. Unfortunately his creatinine has increased. His BUN remains elevated. He is no longer on D5W and I have him on normal saline. We will monitor his sodium. He might require half-normal saline. His chest x-ray is are looking better. His CRP, surprisingly, is 160. I do not see an earlier CRP level. D-dimer is much improved. Is down to 1.88 and at admission it was greater than 20. I will reassess the patient tomorrow. If he continues to improve slowly then I do not feel there is a need for imaging of his brain. His sodium corrected at a reasonable rate and so there should not be any cerebral edema. 03/24/2020 Once again I spoke to the patient's . She provided information about what sounds like a cervical spinal cord injury years ago. She states he had a prolonged 2-month stay with rehab hospital. We will continue physical therapy. This may explain his weakness and may prolong his physical recovery. His white cell count is improved. We will continue current management. His uric acid is high. He is on colchicine. I will resume low-dose Solu- Medrol. DVT-I am switching to direct oral anticoagulant at this point. This will make it easier at the time of discharge. Chronic renal failure-creatinine is back up again. His albumin is only 2.2. I am going to give 25 g of albumin to help perfusion by increasing his oncotic pressure. Sodium is better at 141.5 with a normal potassium at 3.9. Glucose is 164. We will need to monitor especially with the small dose of steroids. 03/25/2020 I believe the positive fluid balance, in an effort to improve his renal function, is causing him to be short of breath. I will stop the IV fluids. We will give 1 mg of Bumex IV and monitor his response. I will likely give him another milligram later today and then start a daily dose. I will also order albumin since his albumin is only 2.2 yesterday. Continue to monitor Accu-Cheks with sliding scale Hyponatremia is resolved If he responds to the diuresis as hoped we can likely get him back to room air. He also reports that his knees are feeling slightly better with the addition of colchicine. - Time Time Spent with patient: 15-24 minutes Medications reviewed and adjusted accordingly: Yes Anticipated Discharge Disposition: Longterm Facility Anticipated Discharge Timeframe: within 72 hours
[2020-03-25] MEDS: MELATONIN 5 MG TABLET PO SCH (21:37)
[2020-03-26 05:53] LABS: HEMATOCRIT 23.5 % (37.9-51.0); MEAN CORPUSCULAR HEMOGLOBIN 26.8 pg (27.0-33.4); MEAN CORPUSCULAR HGB CONC 33.3 g/dL (32.0-36.0); MEAN CORPUSCULAR VOLUME 80 fl (80-97); RED BLOOD COUNT 2.93 10^6/uL (4.35-5.55); WHITE BLOOD COUNT 10.3 10^3/uL (4.0-10.5)
[2020-03-26 06:08] LABS: ALBUMIN 2.4 g/dL (3.5-5.0); ANION GAP 11 (5-19); BLOOD UREA NITROGEN 68 mg/dL (7-20); CALCIUM 8.5 mg/dL (8.4-10.2); CARBON DIOXIDE 20 mmol/L (22-30); CHLORIDE 114 mmol/L (98-107); GLUCOSE 159 mg/dL (75-110); PHOSPHORUS 4.1 mg/dL (2.5-4.5); POTASSIUM 4.3 mmol/L (3.6-5.0)
[2020-03-26 06:24] LABS: C-REACTIVE PROTEIN 224.2 mg/L (<10.0)
[2020-03-26 06:30] LABS: PLATELET COUNT 81 10^3/uL (150-450)
[2020-03-26 06:33] LABS: HEMOGLOBIN 7.8 g/dL (13.5-17.0)
[2020-03-26] MEDS ORDERED: FUROSEMIDE 20 MG TABLET PO SCH (10:00)
[2020-03-26] MEDS: CHOLECALCIFEROL (D3) 1,000 UNIT (25 MCG) TABLET PO SCH (10:11)
[2020-03-26] MEDS: FAMOTIDINE 20 MG TABLET PO SCH (10:12)
[2020-03-26] MEDS: ZINC SULFATE 220 MG CAPSULE PO SCH (10:12)
[2020-03-26] MEDS: ASCORBIC ACID 500 MG TABLET PO SCH ×2 (10:12→17:19)
[2020-03-26] MEDS: APIXABAN 5 MG TABLET PO SCH ×2 (10:12→17:19)
[2020-03-26] MEDS: METHYLPREDNISOLONE INJ 40 MG/1 ML SDV IV SCH (10:12)
[2020-03-26] MEDS: COLCHICINE 0.6 MG TABLET PO SCH (10:12)
[2020-03-26 10:30] LABS: APPEARANCE,URINE CLEAR; BILIRUBIN,URINE NEGATIVE (NEGATIVE); COLOR,URINE YELLOW; GLUCOSE, URINE 50 mg/dL (NEGATIVE); KETONES,URINE NEGATIVE (NEGATIVE); LEUKOCYTE ESTERASE,URINE NEGATIVE (NEGATIVE); NITRITE,URINE NEGATIVE (NEGATIVE); PROTEIN,URINE 100 mg/dL (NEGATIVE); URINE SPECIFIC GRAVITY 1.013; UROBILINOGEN,URINE NEGATIVE mg/dL (<2.0)
--- NOTE | 2020-03-26 14:13 | PDOC PROGRESS REPORT ---
Subjective Date:: 03/26/20 Subjective:: The patient is resting in bed. He still reports knee pain and discomfort in the left metatarsal phalangeal joint of the first toe. Reason For Visit: COVID,PNEUMONIA Physical Exam Vital Signs: Temp Pulse Resp BP Pulse Ox 97.5 F 83 16 115/74 96 03/26/20 12:21 03/26/20 12:21 03/26/20 12:21 03/26/20 12:21 03/26/20 12:21 Intake & Output 03/25/20 03/26/20 03/27/20 06:59 06:59 06:59 Intake Total 4809 2962 150 Output Total 1125 1500 200 Balance 3684 1462 -50 Weight 66.7 kg 68.5 kg General appearance: PRESENT: no acute distress, cooperative, thin Head exam: PRESENT: atraumatic, normocephalic Respiratory exam: PRESENT: clear to auscultation ernestine, symmetrical, unlabored. ABSENT: rales, rhonchi, tachypnea, wheezes Cardiovascular exam: PRESENT: RRR, +S1, +S2. ABSENT: bradycardia, diastolic murmur, irregular rhythm, systolic murmur, tachycardia GI/Abdominal exam: PRESENT: normal bowel sounds, soft. ABSENT: distended, tenderness Rectal exam: PRESENT: deferred Gentrourinary exam: ABSENT: indwelling catheter Extremities exam: PRESENT: joint swelling - Left first metatarsal phalangeal joint. Pronounced bunion. Tender to palpation.. ABSENT: pedal edema Musculoskeletal exam: PRESENT: other - Decreased muscle mass Neurological exam: PRESENT: alert, awake, oriented to person, oriented to place, oriented to situation, CN II-XII grossly intact Psychiatric exam: PRESENT: appropriate affect. ABSENT: agitated, anxious Focused psych exam: ABSENT: delusional, paranoid, restlessness Results Laboratory Results: 03/26/20 04:22 03/26/20 04:22 03/26/20 03/26/20 03/26/20 04:22 04:22 09:50 WBC 10.3 RBC 2.93 L Hgb 7.8 L Hct 23.5 L MCV 80 MCH 26.8 L MCHC 33.3 RDW 14.0 Plt Count 81 L Sodium 145.3 H Potassium 4.3 Chloride 114 H Carbon Dioxide 20 L Anion Gap 11 BUN 68 H Creatinine 2.57 H Est GFR ( Amer) 32 L Glucose 159 H Calcium 8.5 Phosphorus 4.1 Magnesium 1.7 Ferritin 915.00 H C-Reactive Protein 224.2 H Albumin 2.4 L Urine Color YELLOW Urine Appearance CLEAR Urine pH 5.0 Ur Specific [place] 1.013 Urine Protein 100 H Urine Glucose (UA) 50 H Urine Ketones NEGATIVE Urine Blood NEGATIVE Urine Nitrite NEGATIVE Ur Leukocyte Esterase NEGATIVE Urine WBC (Auto) 1 Urine RBC (Auto) 1 03/09/20 03/09/20 03/09/20 12:12 12:12 12:12 Creatine Kinase 45 L Troponin I 0.063 NT-Pro-B Natriuret Pep 155 H 03/09/20 03/10/20 03/10/20 21:20 04:40 10:40 Creatine Kinase Troponin I 0.259 0.162 0.124 NT-Pro-B Natriuret Pep Impressions: Venous Doppler Study 03/12/20 00:00 IMPRESSION: 1. Positive examination on the left. Acute occlusive thrombus within the left posterior tibial vein. 2. NO EVIDENCE DVT OR SVT IN RIGHT LEG. Chest X-Ray 03/23/20 00:00 IMPRESSION: Improving aeration. Assessment and Plan - Diagnosis (1) Hypernatremia Is this a current diagnosis for this admission?: Yes (2) Acute hypoxemic respiratory failure due to COVID-19 Is this a current diagnosis for this admission?: Yes (3) Acute kidney injury superimposed on chronic kidney disease Is this a current diagnosis for this admission?: Yes (4) DVT (deep venous thrombosis) Qualifiers: DVT location: lower extremity Affected thrombotic vein of extremity: tibial Chronicity: acute Laterality: left Qualified Code(s): I82.442 - Acute embolism and thrombosis of left tibial vein Is this a current diagnosis for this admission?: Yes (5) Dehydration Is this a current diagnosis for this admission?: Yes (6) Elevated troponin I level Is this a current diagnosis for this admission?: Yes (7) Pneumonia due to COVID-19 virus Is this a current diagnosis for this admission?: Yes (8) Hyperkalemia Is this a current diagnosis for this admission?: Yes (9) Critical illness myopathy Is this a current diagnosis for this admission?: Yes (10) Gout due to renal impairment Qualifiers: Gout site: knee Laterality: unspecified laterality Presence of tophus: without tophus Is this a current diagnosis for this admission?: Yes - Plan Summary Summary: Plan to DC dexamethasone on 1123. Low up on labs in a.m. Switch to oral anticoagulant when he is able to tolerate orally Need physical therapy once stable 03/21/2020 Hypernatremia-sodium continues to correct. Will continue current regimen. Acute on chronic kidney failure-his creatinine is approximately at his baseline. BUN is still elevated. This should improve with the IV fluids. Respiratory failure with Covid pneumonia-patient is tolerating room air for extended periods. We will continue to achieve continuous room air status. The patient seems to be more participatory in the encounter. Hopefully as the BUN and electrolytes correct further he will feel better. 03/22/2020 I did not check laboratory studies today. Will recheck tomorrow including D- dimer and CRP Patient is on room air and from a respiratory status is stable and recovered Renal function was slowly improving. Creatinine was at baseline. BUN was still markedly elevated. Continuing IV fluid and encourage p.o. fluid. Hypernatremia was consistently improving. Expect with tomorrow's labs will be within the normal range. Will check calcium and magnesium as well. The patient is profoundly weak. This is likely from the critical illness secondary to Covid infection. Now that he is stable from a respiratory standpoint we will ask physical and occupational therapies to see the patient. I am also checking a morning cortisol level to see if the patient might be adren ally insufficient with his acute illness. We will try and encourage appetite. If there is no improvement then consider an appetite stimulant. Consider changing to an oral anticoagulant over the next few days. Await D- dimer results. No further evidence of complications from his DVT. 03/23/2020 I did get a chance to speak to the patient's . She states that her conversation today was rewarding and that she could actually understand everything he was seen. She was very pleased with that. She did confirm his history of gout. I explained that his white blood cell count was up and that we were ruling out infection. His chest x-ray actually looks better than on admission. For his gout I have added a uric acid level but started him on colchicine for the time being. Unfortunately his creatinine has increased. His BUN remains elevated. He is no longer on D5W and I have him on normal saline. We will monitor his sodium. He might require half-normal saline. His chest x-ray is are looking better. His CRP, surprisingly, is 160. I do not see an earlier CRP level. D-dimer is much improved. Is down to 1.88 and at admission it was greater than 20. I will reassess the patient tomorrow. If he continues to improve slowly then I do not feel there is a need for imaging of his brain. His sodium corrected at a reasonable rate and so there should not be any cerebral edema. 03/24/2020 Once again I spoke to the patient's . She provided information about what sounds like a cervical spinal cord injury years ago. She states he had a prolonged 2-month stay with rehab hospital. We will continue physical therapy. This may explain his weakness and may prolong his physical recovery. His white cell count is improved. We will continue current management. His uric acid is high. He is on colchicine. I will resume low-dose Solu- Medrol. DVT-I am switching to direct oral anticoagulant at this point. This will make it easier at the time of discharge. Chronic renal failure-creatinine is back up again. His albumin is only 2.2. I am going to give 25 g of albumin to help perfusion by increasing his oncotic pressure. Sodium is better at 141.5 with a normal potassium at 3.9. Glucose is 164. We will need to monitor especially with the small dose of steroids. 03/25/2020 I believe the positive fluid balance, in an effort to improve his renal function, is causing him to be short of breath. I will stop the IV fluids. We will give 1 mg of Bumex IV and monitor his response. I will likely give him another milligram later today and then start a daily dose. I will also order albumin since his albumin is only 2.2 yesterday. Continue to monitor Accu-Cheks with sliding scale Hyponatremia is resolved If he responds to the diuresis as hoped we can likely get him back to room air. He also reports that his knees are feeling slightly better with the addition of colchicine. 03/26/2020 Gout-colchicine started. The left first metatarsal phalangeal joint is the location that he typically has problems with. Knee pain-the patient now understands that the immobility and loss of muscle mass are contributing to joint pain. He is working with physical therapy. He does have chronic renal insufficiency and so nonsteroidal anti-inflammatory medications are out of the question. Renal insufficiency-the renal function is improved. I believe this is due to the diuresis. Hyponatremia-sodium is slightly high. I have encouraged him to drink more fluids. I will resume half-normal saline at a slow rate. He is still on nasal cannula. I am not sure if diuresis will eventually get him to room air or if this is his Covid. The patient's recovery, I feel, is slightly prolonged due to his history of traumatic brain injury. I think the physiological stress of the severe infectio n has had him regressed slightly. I believe he will eventually regain full function it will just take slightly longer. We discussed this in detail. He understands this and appreciates how his past history can affect his current recovery. - Time Time Spent with patient: 15-24 minutes Medications reviewed and adjusted accordingly: Yes Anticipated Discharge Disposition: Home with Home Health Anticipated Discharge Timeframe: Unknown
[2020-03-26] MEDS: 1/2 NORMAL SALINE 1,000 ML IV PRN (14:57)
[2020-03-26] MEDS: MELATONIN 5 MG TABLET PO SCH (21:33)
[2020-03-27] MEDS: 1/2 NORMAL SALINE 1,000 ML IV PRN (05:34)
[2020-03-27 05:39] LABS: ABSOLUTE LYMPHOCYTES (AUTO) 0.5 10^3/uL (0.5-4.7); ABSOLUTE NEUT (AUTO) 7.8 10^3/uL (1.7-8.2); BASOPHILS % (AUTO) 0.3 % (0-2); EOSINOPHILS % (AUTO) 0.1 % (0-6); TOTAL CELLS COUNTED % (AUTO) 100 %
[2020-03-27 05:43] LABS: ABSOLUTE MONOCYTES (AUTO) 0.8 10^3/uL (0.1-1.4); HEMATOCRIT 24.1 % (37.9-51.0); LYMPHOCYTES % (AUTO) 5.7 % (13-45); MEAN CORPUSCULAR HEMOGLOBIN 25.8 pg (27.0-33.4); MEAN CORPUSCULAR HGB CONC 32.9 g/dL (32.0-36.0); MEAN CORPUSCULAR VOLUME 79 fl (80-97); MONOCYTES % (AUTO) 8.3 % (3-13); RED BLOOD COUNT 3.06 10^6/uL (4.35-5.55); RED CELL DISTRIBUTION WIDTH 13.8 % (11.5-14.0); SEGMENTED NEUTROPHILS % (AUTO) 85.6 % (42-78); WHITE BLOOD COUNT 9.2 10^3/uL (4.0-10.5)
[2020-03-27 05:52] LABS: ALBUMIN 2.4 g/dL (3.5-5.0); ANION GAP 9 (5-19); BLOOD UREA NITROGEN 74 mg/dL (7-20); C-REACTIVE PROTEIN 63.1 mg/L (<10.0); CALCIUM 8.5 mg/dL (8.4-10.2); CARBON DIOXIDE 19 mmol/L (22-30); CHLORIDE 112 mmol/L (98-107); GLUCOSE 141 mg/dL (75-110); PHOSPHORUS 4.1 mg/dL (2.5-4.5); POTASSIUM 4.5 mmol/L (3.6-5.0)
[2020-03-27 06:00] LABS: HEMOGLOBIN 7.9 g/dL (13.5-17.0)
[2020-03-27 06:03] LABS: PLATELET COUNT 117 10^3/uL (150-450)
[2020-03-27] MEDS: ASCORBIC ACID 500 MG TABLET PO SCH ×2 (09:31→17:21)
[2020-03-27] MEDS: COLCHICINE 0.6 MG TABLET PO SCH (09:31)
[2020-03-27] MEDS: APIXABAN 5 MG TABLET PO SCH ×2 (09:31→17:21)
[2020-03-27] MEDS: ZINC SULFATE 220 MG CAPSULE PO SCH (09:31)
[2020-03-27] MEDS: FAMOTIDINE 20 MG TABLET PO SCH (09:31)
[2020-03-27] MEDS: CHOLECALCIFEROL (D3) 1,000 UNIT (25 MCG) TABLET PO SCH (09:31)
[2020-03-27] MEDS: FUROSEMIDE INJ/PF 40 MG/4 ML SDV IV SCH (12:00)
--- NOTE | 2020-03-27 17:38 | PDOC PROGRESS REPORT ---
Subjective Date:: 03/27/20 Subjective:: Patient seen on morning rounds. He is resting in bed comfortably. Continues to complain of knee and elbow pain though this is improved with colchicine. Patient historically refusing physical therapy, though excited for PT today. Reports SOB on exertion, orthopnea and lower extremity edema. Provides no further complaints or concerns today. Discussed with nursing she tells me patient O2 sats >95% on 1.5L NC at rest with drop to 84% on exertion. Patient currently 98% on 4L NC. We will place in 2 L nasal cannula and continue to wean. Reason For Visit: COVID,PNEUMONIA Physical Exam Vital Signs: Temp Pulse Resp BP Pulse Ox 97.6 F 78 17 117/86 H 97 03/27/20 11:18 03/27/20 14:00 03/27/20 11:18 03/27/20 11:18 03/27/20 11:18 Intake & Output 03/26/20 03/27/20 03/28/20 06:59 06:59 06:59 Intake Total 2962 1760 320 Output Total 1500 1275 1100 Balance 1462 485 -780 Weight 68.5 kg 69.1 kg General appearance: PRESENT: no acute distress, cooperative, well-developed, well-nourished Head exam: PRESENT: atraumatic, normocephalic Eye exam: PRESENT: EOMI. ABSENT: scleral icterus Mouth exam: PRESENT: moist, neck supple Neck exam: PRESENT: full ROM. ABSENT: JVD, tenderness Respiratory exam: PRESENT: clear to auscultation ernestine, symmetrical, unlabored. ABSENT: crackles, rales, wheezes Cardiovascular exam: PRESENT: RRR, +S1, +S2. ABSENT: clicks, diastolic murmur, gallop, systolic murmur, tachycardia Pulses: PRESENT: normal radial pulses GI/Abdominal exam: PRESENT: soft. ABSENT: tenderness Extremities exam: PRESENT: full ROM, joint swelling - Left first metatarsal phalangeal joint, without redness, without warmth. Minimally TTP.. ABSENT: pedal edema Musculoskeletal exam: PRESENT: ambulatory, full ROM, other - Decreased muscle mass.. ABSENT: deformity Neurological exam: PRESENT: alert, awake, oriented to person, oriented to place, oriented to time, oriented to situation, CN II-XII grossly intact Psychiatric exam: PRESENT: appropriate affect, normal mood Skin exam: PRESENT: dry, intact, warm Results Laboratory Results: 03/27/20 04:22 03/27/20 04:22 03/27/20 03/27/20 04:22 04:22 WBC 9.2 RBC 3.06 L Hgb 7.9 L Hct 24.1 L MCV 79 L MCH 25.8 L MCHC 32.9 RDW 13.8 Plt Count 117 L Seg Neutrophils % 85.6 H Sodium 140.3 Potassium 4.5 Chloride 112 H Carbon Dioxide 19 L Anion Gap 9 BUN 74 H Creatinine 2.24 H Est GFR ( Amer) 38 L Glucose 141 H Calcium 8.5 Phosphorus 4.1 Magnesium 1.7 C-Reactive Protein 63.1 H Albumin 2.4 L 03/09/20 03/09/20 03/09/20 12:12 12:12 12:12 Creatine Kinase 45 L Troponin I 0.063 NT-Pro-B Natriuret Pep 155 H 03/09/20 03/10/20 03/10/20 21:20 04:40 10:40 Creatine Kinase Troponin I 0.259 0.162 0.124 NT-Pro-B Natriuret Pep Impressions: Venous Doppler Study 03/12/20 00:00 IMPRESSION: 1. Positive examination on the left. Acute occlusive thrombus within the left posterior tibial vein. 2. NO EVIDENCE DVT OR SVT IN RIGHT LEG. Chest X-Ray 03/23/20 00:00 IMPRESSION: Improving aeration. Assessment and Plan - Diagnosis (1) Fluid overload Is this a current diagnosis for this admission?: Yes Plan: Pt c/o dyspnea on exertion, bilateral LE edema, and orthopnea. - Likely secondary to IVF - Discontinue IVF - Initiate lasix 40mg IV - Monitor for improvement (2) Anemia of chronic disease Is this a current diagnosis for this admission?: Yes Plan: Hgb 7.9, Hct 24.1. Hemodynamically stable without symptom. - Iron studies completed with TIBC 222. - Current lab values with decrease WBC, RBC, Plts, likely heme-dilution - Continue to monitor on CBC (3) Hypernatremia Is this a current diagnosis for this admission?: Yes Plan: Resolved. - Na 140.3. - Monitor daily BMP. (4) Acute hypoxemic respiratory failure due to COVID-19 Is this a current diagnosis for this admission?: Yes Plan: Tested positive for Covid 5 days prior to admission - O2 sat >95% on 2L NC - Continue to wean off supplemental O2. (5) Acute kidney injury superimposed on chronic kidney disease Is this a current diagnosis for this admission?: Yes Plan: Patient with history of chronic kidney disease. - Baseline creatinine 2.6 now - Creatinine 2.24. - Is producing urine without difficulty. - Stop IV fluids as discussed above. - Continue to monitor on BMP (6) DVT (deep venous thrombosis) Qualifiers: DVT location: lower extremity Affected thrombotic vein of extremity: tibial Chronicity: acute Laterality: left Qualified Code(s): I82.442 - Acute embolism and thrombosis of left tibial vein Is this a current diagnosis for this admission?: Yes Plan: US revealed a lower leg tibial vein DVT - Continue on Eliquis 5mg PO BID, plan to continue therapy x3 months. (7) Dehydration Is this a current diagnosis for this admission?: Yes Plan: Kidney function at baseline as discussed above. - Hold IVF as above - Monitor I&Os, expect negative fluid balance with Lasix onboard (8) Elevated troponin I level Is this a current diagnosis for this admission?: Yes Plan: REsolved, without complaints of CP. - Troponin 0.162>0.124 - EKG sinus rhythm no ST elevation - Likely secondary to demand ischemia from hypoxia - No Further interventions needed (9) Pneumonia due to COVID-19 virus Is this a current diagnosis for this admission?: Yes Plan: Tested positive for Covid pneumonia 5 days prior to admission. - Completed remdesivir therapy in full . - Completed convalescent plasma. - Completed Dexa therapy x10 day course. - Cnt with DuoNeb prn. - Cnt supplements. - Cnt wean off O2. (10) Hyperkalemia Is this a current diagnosis for this admission?: Yes Plan: Resolved. (11) Critical illness myopathy Is this a current diagnosis for this admission?: Yes Plan: Physical therapy to evaluate today - Extensive conversation with patient and need for movement - Encouraged up and out of bed during the day, only to be in bed at night - Reports understanding and agreement to this (12) Gout due to renal impairment Qualifiers: Gout site: knee Laterality: unspecified laterality Presence of tophus: without tophus Is this a current diagnosis for this admission?: Yes Plan: Colchicine day 2. - Plan to treat total 3 days. - Continue to monitor. - Plan Summary Summary: Plan to dc home once weaned off supplemental O2. - Time Time Spent with patient: 25-34 minutes Medications reviewed and adjusted accordingly: Yes Anticipated Discharge Disposition: Home, Self Care Anticipated Discharge Timeframe: within 48 hours
[2020-03-27] MEDS: MELATONIN 5 MG TABLET PO SCH (21:50)
[2020-03-27] MEDS: ACETAMINOPHEN 325 MG TABLET PO PRN (23:53)
[2020-03-28 05:13] LABS: HEMATOCRIT 26.8 % (37.9-51.0); HEMOGLOBIN 8.8 g/dL (13.5-17.0); MEAN CORPUSCULAR HEMOGLOBIN 25.8 pg (27.0-33.4); MEAN CORPUSCULAR VOLUME 78 fl (80-97); PLATELET COUNT 137 10^3/uL (150-450); RED BLOOD COUNT 3.43 10^6/uL (4.35-5.55); RED CELL DISTRIBUTION WIDTH 13.9 % (11.5-14.0); WHITE BLOOD COUNT 8.4 10^3/uL (4.0-10.5)
[2020-03-28 05:28] LABS: ANION GAP 7 (5-19); BLOOD UREA NITROGEN 65 mg/dL (7-20); CALCIUM 8.5 mg/dL (8.4-10.2); CARBON DIOXIDE 24 mmol/L (22-30); CHLORIDE 108 mmol/L (98-107); GLUCOSE 145 mg/dL (75-110); POTASSIUM 3.8 mmol/L (3.6-5.0)
[2020-03-28 07:07] LABS: APPEARANCE,URINE CLEAR; BILIRUBIN,URINE NEGATIVE (NEGATIVE); COLOR,URINE YELLOW; GLUCOSE, URINE NEGATIVE (NEGATIVE); KETONES,URINE NEGATIVE (NEGATIVE); LEUKOCYTE ESTERASE,URINE NEGATIVE (NEGATIVE); NITRITE,URINE NEGATIVE (NEGATIVE); PROTEIN,URINE 100 mg/dL (NEGATIVE); URINE SPECIFIC GRAVITY 1.011; UROBILINOGEN,URINE NEGATIVE mg/dL (<2.0)
[2020-03-28] MEDS: CHOLECALCIFEROL (D3) 1,000 UNIT (25 MCG) TABLET PO SCH (09:29)
[2020-03-28] MEDS: FUROSEMIDE INJ/PF 40 MG/4 ML SDV IV SCH (09:29)
[2020-03-28] MEDS: FAMOTIDINE 20 MG TABLET PO SCH (09:29)
[2020-03-28] MEDS: COLCHICINE 0.6 MG TABLET PO SCH (09:29)
[2020-03-28] MEDS: ZINC SULFATE 220 MG CAPSULE PO SCH (09:30)
[2020-03-28] MEDS: ASCORBIC ACID 500 MG TABLET PO SCH ×2 (09:30→17:06)
[2020-03-28] MEDS: APIXABAN 5 MG TABLET PO SCH ×2 (09:30→17:06)
[2020-03-28] MEDS: ACETAMINOPHEN 325 MG TABLET PO PRN ×2 (09:30→17:06)
--- NOTE | 2020-03-28 18:40 | PDOC PROGRESS REPORT ---
Subjective Date:: 03/28/20 Subjective:: Patient seen on morning rounds. He is resting in bedside chair. He is wanting to go home. He remains on O2 supplementation, qualifies for home O2, he is self pay and agrees to pay. Home O2 organized to be delivered to his house tomorrow. He provides me with no complaints or concerns today. He is excited about his walking with PT today. Discussed with PT, report progressive improvement though recommend continued therapy. Patient is self-pay and thus home health PT unlikely. Discussed with Emilee , reports substantial family support at home including herself, children and pt's mother. Organized 24 hours support. Patient for next 2 weeks. They do not have a wheelchair, walker or cane at home, but plan to obtain by tomorrow. Plan to have PT provide patient/family with recommended rehab exercises. Discussed with nursing. No acute events. No concerns. Reason For Visit: COVID,PNEUMONIA Physical Exam Vital Signs: Temp Pulse Resp BP Pulse Ox 98.5 F 84 18 120/69 99 03/28/20 13:26 03/28/20 14:00 03/28/20 13:26 03/28/20 13:26 03/28/20 13:26 Intake & Output 03/27/20 03/28/20 03/29/20 06:59 06:59 06:59 Intake Total 1760 580 Output Total 1275 2320 1300 Balance 615 -8280 -1300 Weight 69.1 kg 67.9 kg Additional comments: General appearance: PRESENT: no acute distress, cooperative, well-developed, well-nourished Head exam: PRESENT: atraumatic, normocephalic Eye exam: PRESENT: EOMI. ABSENT: scleral icterus Mouth exam: PRESENT: moist, neck supple Neck exam: PRESENT: full ROM. ABSENT: JVD, tenderness Respiratory exam: PRESENT: clear to auscultation ernestine, symmetrical, unlabored. ABSENT: crackles, rales, wheezes Cardiovascular exam: PRESENT: RRR, +S1, +S2. ABSENT: clicks, diastolic murmur, gallop, systolic murmur, tachycardia Pulses: PRESENT: normal radial pulses GI/Abdominal exam: PRESENT: soft. ABSENT: tenderness Extremities exam: PRESENT: full ROM, joint swelling - Left first metatarsal phalangeal joint, without redness, without warmth. Minimally TTP.. ABSENT: pedal edema Musculoskeletal exam: PRESENT: ambulatory, full ROM, other - Decreased muscle mass.. ABSENT: deformity Neurological exam: PRESENT: alert, awake, oriented to person, oriented to place, oriented to time, oriented to situation, CN II-XII grossly intact Psychiatric exam: PRESENT: appropriate affect, normal mood Skin exam: PRESENT: dry, intact, warm Results Laboratory Results: 03/28/20 04:04 03/28/20 04:04 03/28/20 03/28/20 03/28/20 04:04 04:04 06:51 WBC 8.4 RBC 3.43 L Hgb 8.8 L Hct 26.8 L MCV 78 L MCH 25.8 L MCHC 33.0 RDW 13.9 Plt Count 137 L Sodium 138.5 Potassium 3.8 Chloride 108 H Carbon Dioxide 24 Anion Gap 7 BUN 65 H Creatinine 2.56 H Est GFR ( Amer) 32 L Glucose 145 H Calcium 8.5 Magnesium 1.6 Urine Color YELLOW Urine Appearance CLEAR Urine pH 5.0 Ur Specific [place] 1.011 Urine Protein 100 H Urine Glucose (UA) NEGATIVE Urine Ketones NEGATIVE Urine Blood NEGATIVE Urine Nitrite NEGATIVE Ur Leukocyte Esterase NEGATIVE Urine RBC (Auto) 1 03/09/20 03/09/20 03/09/20 12:12 12:12 12:12 Creatine Kinase 45 L Troponin I 0.063 NT-Pro-B Natriuret Pep 155 H 03/09/20 03/10/20 03/10/20 21:20 04:40 10:40 Creatine Kinase Troponin I 0.259 0.162 0.124 NT-Pro-B Natriuret Pep Impressions: Venous Doppler Study 03/12/20 00:00 IMPRESSION: 1. Positive examination on the left. Acute occlusive thrombus within the left posterior tibial vein. 2. NO EVIDENCE DVT OR SVT IN RIGHT LEG. Chest X-Ray 03/23/20 00:00 IMPRESSION: Improving aeration. Assessment and Plan - Diagnosis (1) Fluid overload Is this a current diagnosis for this admission?: Yes Plan: Noted improvement in dyspnea on exertion, bilateral LE edema, and orthopnea with IV lasix. - Continue IV Lasix while in hospital. (2) Anemia of chronic disease Is this a current diagnosis for this admission?: Yes Plan: Hgb 8.8, Hct 26.8; improved from yesterday. Hemodynamically stable without symptom. - Iron studies completed with TIBC 222. - Current lab values with decrease WBC, RBC, Plts, likely heme-dilution - Continue to monitor on CBC (3) Hypernatremia Is this a current diagnosis for this admission?: Yes Plan: Remains resolved. - Monitor daily BMP. (4) Acute hypoxemic respiratory failure due to COVID-19 Is this a current diagnosis for this admission?: Yes Plan: Tested positive for Covid 5 days prior to admission - O2 sat >95% on 2L NC - Qualifies for home O2, self pay, agree pay, home O2 scheduled to deliver to home tomorrow - Plan to dc home tomorrow (5) Acute kidney injury superimposed on chronic kidney disease Is this a current diagnosis for this admission?: Yes Plan: Patient with history of chronic kidney disease. - Baseline creatinine 2.6 now - Creatinine 2.56 - Is producing urine without difficulty. - Slight increase Creatinine expected, stopped IVF and initiated IV Lasix. - Continue to monitor on BMP (6) DVT (deep venous thrombosis) Qualifiers: DVT location: lower extremity Affected thrombotic vein of extremity: tibial Chronicity: acute Laterality: left Qualified Code(s): I82.442 - Acute embolism and thrombosis of left tibial vein Is this a current diagnosis for this admission?: Yes Plan: US revealed a lower leg tibial vein DVT - Continue on Eliquis 5mg PO BID, plan to continue therapy x3 months. (7) Dehydration Is this a current diagnosis for this admission?: Yes Plan: Kidney function at baseline as discussed above. - Hold IVF as above - Monitor I&Os, expect negative fluid balance with Lasix onboard (8) Elevated troponin I level Is this a current diagnosis for this admission?: Yes Plan: REsolved, without complaints of CP. - Troponin 0.162>0.124 - EKG sinus rhythm no ST elevation - Likely secondary to demand ischemia from hypoxia - No Further interventions needed (9) Pneumonia due to COVID-19 virus Is this a current diagnosis for this admission?: Yes Plan: Tested positive for Covid pneumonia 5 days prior to admission. - Completed remdesivir therapy in full . - Completed convalescent plasma. - Completed Dexa therapy x10 day course. - Cnt with DuoNeb prn. - Cnt supplements. - Home O2 as above (10) Hyperkalemia Is this a current diagnosis for this admission?: Yes Plan: Remains resolved. (11) Critical illness myopathy Is this a current diagnosis for this admission?: Yes Plan: Physical therapy evaluated patient, discussed with PT, PT note reviewed in detail - Recommend continued therapy. - Pt self pay, home health PT concepcion unattainable - Discussed with family, strong support system at home - Plan to have PT provide pt/family with recommended rehab exercises to complete at home - Encouraged frequent, supported movement, up and out of bed during the day (12) Gout due to renal impairment Qualifiers: Gout site: knee Laterality: unspecified laterality Presence of tophus: without tophus Is this a current diagnosis for this admission?: Yes Plan: Colchicine therapy x3 days. - Completed at this time. - No further attention needed - Plan Summary Summary: Home O2 scheduled for delivery tomorrow. Dc home tomorrow. - Time Time Spent with patient: 35 or more minutes Medications reviewed and adjusted accordingly: Yes Anticipated Discharge Disposition: Home, Self Care Anticipated Discharge Timeframe: within 24 hours
[2020-03-28] MEDS: MELATONIN 5 MG TABLET PO SCH (21:03)
[2020-03-29] MEDS: ACETAMINOPHEN 325 MG TABLET PO PRN ×2 (05:36→09:36)
[2020-03-29] MEDS: IPRATROPIUM/ALBUTEROL 0.5-2.5 MG/3 ML AMPUL NEB SCH ×4 (08:00→19:50)
--- NOTE | 2020-03-29 08:26 | RADIOLOGY REPORT (SQ) ---
EXAM DESCRIPTION: CHEST SINGLE VIEW IMAGES COMPLETED DATE/TIME: 03/29/2020 8:07 am REASON FOR STUDY: increasing O2 needs, fever COMPARISON: 03/23/2020 and 03/12/2020 EXAM PARAMETERS: NUMBER OF VIEWS: One view. TECHNIQUE: Single frontal radiographic view of the chest acquired. RADIATION DOSE: NA LIMITATIONS: None. FINDINGS: LUNGS AND PLEURA: Today's examination demonstrates increasing focal airspace opacities. N o pleural effusions. No pneumothorax. MEDIASTINUM AND HILAR STRUCTURES: No masses. Contour normal. HEART AND VASCULAR STRUCTURES: Heart normal in size. Normal vasculature. BONES: No acute findings. HARDWARE: None in the chest. OTHER: No other significant finding. IMPRESSION: Interval worsening in the appearance of multifocal airspace opacities. TECHNICAL DOCUMENTATION: JOB ID: [id number] 2010 [employer]- All Rights Reserved Reading location - IP/workstation name: [email or web address]
[2020-03-29] MEDS: ASCORBIC ACID 500 MG TABLET PO SCH ×2 (09:36→17:12)
[2020-03-29] MEDS: ZINC SULFATE 220 MG CAPSULE PO SCH (09:36)
[2020-03-29] MEDS: CHOLECALCIFEROL (D3) 1,000 UNIT (25 MCG) TABLET PO SCH (09:36)
[2020-03-29] MEDS: FAMOTIDINE 20 MG TABLET PO SCH (09:36)
[2020-03-29] MEDS: APIXABAN 5 MG TABLET PO SCH ×2 (09:36→17:12)
[2020-03-29 10:07] LABS: HEMOGLOBIN 9.2 g/dL (13.5-17.0); MEAN CORPUSCULAR HEMOGLOBIN 25.9 pg (27.0-33.4); MEAN CORPUSCULAR VOLUME 78 fl (80-97); PLATELET COUNT 200 10^3/uL (150-450); RED BLOOD COUNT 3.57 10^6/uL (4.35-5.55); RED CELL DISTRIBUTION WIDTH 13.9 % (11.5-14.0); WHITE BLOOD COUNT 11.3 10^3/uL (4.0-10.5)
[2020-03-29 10:15] LABS: D-DIMER 2.67 ug/mL (0.00-0.50)
[2020-03-29 10:26] LABS: ABSOLUTE LYMPHOCYTES# (MANUAL) 0.6 10^3/uL (0.5-4.7); ABSOLUTE MONOCYTES # (MANUAL) 0.6 10^3/uL (0.1-1.4); BASOPHILS % (MANUAL) 0 % (0-2); EOSINOPHILS % (MANUAL) 0 % (0-6); LYMPHOCYTES % (MANUAL) 5 % (13-45); MONOCYTES % (MANUAL) 5 % (3-13); PLATELET COMMENT ADEQUATE; SEGMENTED NEUTROPHILS % (MAN) 90 % (42-78); TOTAL CELLS COUNTED 100
[2020-03-29 10:29] LABS: OVALOCYTES SLIGHT; POLYCHROMASIA SLIGHT
[2020-03-29 10:39] LABS: ALBUMIN 2.7 g/dL (3.5-5.0); ALKALINE PHOSPHATASE 535 U/L (38-126); ANION GAP 8 (5-19); ASPARTATE AMINO TRANSFERASE 40 U/L (17-59); BILIRUBIN,DIRECT 0.4 mg/dL (0.0-0.4); BILIRUBIN,TOTAL 0.6 mg/dL (0.2-1.3); BLOOD UREA NITROGEN 55 mg/dL (7-20); C-REACTIVE PROTEIN 73.4 mg/L (<10.0); CALCIUM 8.6 mg/dL (8.4-10.2); CARBON DIOXIDE 26 mmol/L (22-30); CHLORIDE 103 mmol/L (98-107); GLUCOSE 161 mg/dL (75-110); POTASSIUM 3.9 mmol/L (3.6-5.0); TOTAL PROTEIN 6.1 g/dL (6.3-8.2)
[2020-03-29] MEDS ORDERED: CEFEPIME 2 GM/D5W RTU 2 GM/50 ML RTUPB IV SCH (12:00)
[2020-03-29] MEDS ORDERED: POTASSIUM CHLORIDE 10 MEQ TABLET.ER PO ONE (12:15)
[2020-03-29] MEDS ORDERED: MAGNESIUM SULFATE 4 GM/100 ML RTUPB IV ONE (13:00)
[2020-03-29] MEDS ORDERED: CEFEPIME HCL 2 GM in DEXTROSE 5%-WATER 50 ML IV SCH (14:00)
[2020-03-29] MEDS: CEFEPIME HCL 2 GM in DEXTROSE 5%-WATER 50 ML IV SCH (14:00)
--- NOTE | 2020-03-29 16:21 | PDOC PROGRESS REPORT ---
Subjective Date:: 03/29/20 Subjective:: Patient seen on morning rounds. He is noted to have had spike in temperature last night at 100.9 with associated tachycardia and tacypnea. His O2 requirement increased from 2 to 3l NC, but has since returned to 2. Patient reports 45 minute episode of palpitations which he relates to anxiety, but otherwise denies chills, cough, increased shortness of breath. Labs and imaging completed notable for leukocytosis and worsening appearance in airspace opacities, likely secondary to HAP. Patient made aware of this. Initial plan was to dc pt home today with home O2. Will hold pt and treat for HAP at this time. Contacted pt's for update. Discussed with physical therapy, have provided patient with list of exercises to be completed at home. No further concerns per nursing. Reason For Visit: COVID,PNEUMONIA Physical Exam Vital Signs: Temp Pulse Resp BP Pulse Ox 97.9 F 97 19 136/72 H 98 03/29/20 15:55 03/29/20 15:55 03/29/20 15:55 03/29/20 15:55 03/29/20 15:55 Intake & Output 03/28/20 03/29/20 03/30/20 06:59 06:59 06:59 Intake Total 580 672 260 Output Total 2320 2200 601 Balance -7807 -8302 -940 Weight 67.9 kg 65.8 kg Additional comments: General appearance: PRESENT: no acute distress, cooperative, well-developed, well-nourished Head exam: PRESENT: atraumatic, normocephalic Eye exam: PRESENT: EOMI. ABSENT: scleral icterus Mouth exam: PRESENT: moist, neck supple Neck exam: PRESENT: full ROM. ABSENT: JVD, tenderness Respiratory exam: PRESENT: clear to auscultation ernestine, symmetrical, unlabored. ABSENT: crackles, rales, wheezes Cardiovascular exam: PRESENT: RRR, +S1, +S2. ABSENT: clicks, diastolic murmur, gallop, systolic murmur, tachycardia Pulses: PRESENT: normal radial pulses GI/Abdominal exam: PRESENT: soft. ABSENT: tenderness Extremities exam: PRESENT: full ROM, Left first metatarsal phalangeal joint swelling has resolved, without TTP today. ABSENT: pedal edema Musculoskeletal exam: PRESENT: ambulatory, full ROM, other - Decreased muscle mass.. ABSENT: deformity Neurological exam: PRESENT: alert, awake, oriented to person, oriented to place, oriented to time, oriented to situation, CN II-XII grossly intact Psychiatric exam: PRESENT: appropriate affect, normal mood Skin exam: PRESENT: dry, intact, warm Results Laboratory Results: 03/29/20 09:43 03/29/20 09:43 03/29/20 03/29/20 03/29/20 09:43 09:43 09:43 WBC 11.3 H RBC 3.57 L Hgb 9.2 L Hct 28.0 L MCV 78 L MCH 25.9 L MCHC 33.0 RDW 13.9 Plt Count 200 Seg Neutrophils % Not Reportable Sodium 137.3 Potassium 3.9 Chloride 103 Carbon Dioxide 26 Anion Gap 8 BUN 55 H Creatinine 2.42 H Est GFR ( Amer) 34 L Glucose 161 H Lactic Acid 1.5 Calcium 8.6 Magnesium 1.3 L Ferritin 568.00 H Total Bilirubin 0.6 AST 40 Alkaline Phosphatase 535 H C-Reactive Protein 73.4 H Total Protein 6.1 L Albumin 2.7 L 03/09/20 03/09/20 03/09/20 12:12 12:12 12:12 Creatine Kinase 45 L Troponin I 0.063 NT-Pro-B Natriuret Pep 155 H 03/09/20 03/10/20 03/10/20 21:20 04:40 10:40 Creatine Kinase Troponin I 0.259 0.162 0.124 NT-Pro-B Natriuret Pep Impressions: Venous Doppler Study 03/12/20 00:00 IMPRESSION: 1. Positive examination on the left. Acute occlusive thrombus within the left posterior tibial vein. 2. NO EVIDENCE DVT OR SVT IN RIGHT LEG. Chest X-Ray 03/29/20 00:00 IMPRESSION: Interval worsening in the appearance of multifocal airspace opacities. Assessment and Plan - Diagnosis (1) Hospital-acquired pneumonia Is this a current diagnosis for this admission?: Yes Plan: Overnight pt became febrile, tachycardic, tachypneic, requiring increased oxygen supplementation. - CXR notable for worsening airspace opacities. - Given hospitalization course likely HAP - Initiate Cefepime (First dose 03/29/2020) - BC pending - Monitor on morning CBC (2) Fluid overload Is this a current diagnosis for this admission?: Yes Plan: Noted improvement in dyspnea on exertion, bilateral LE edema, and orthopnea with IV lasix. - Continue IV Lasix while in hospital. (3) Anemia of chronic disease Is this a current diagnosis for this admission?: Yes Plan: Hgb 8.8, Hct 26.8; improved from yesterday. Hemodynamically stable without symptom. - Iron studies completed with TIBC 222. - Current lab values with decrease WBC, RBC, Plts, likely heme-dilution - Continue to monitor on CBC (4) Hypernatremia Is this a current diagnosis for this admission?: Yes Plan: Remains resolved. - Monitor daily BMP. (5) Acute hypoxemic respiratory failure due to COVID-19 Is this a current diagnosis for this admission?: Yes Plan: Tested positive for Covid 5 days prior to admission - O2 sat >95% on 2L NC - Qualifies for home O2, self pay, agree pay, home O2 scheduled to deliver to home tomorrow - Plan to dc home tomorrow (6) Acute kidney injury superimposed on chronic kidney disease Is this a current diagnosis for this admission?: Yes Plan: Patient with history of chronic kidney disease. - Baseline creatinine 2.6 - Is producing urine without difficulty. - Slight increase Creatinine expected, stopped IVF and initiated IV Lasix. - Continue to monitor on BMP (7) DVT (deep venous thrombosis) Qualifiers: DVT location: lower extremity Affected thrombotic vein of extremity: tibial Chronicity: acute Laterality: left Qualified Code(s): I82.442 - Acute embolism and thrombosis of left tibial vein Is this a current diagnosis for this admission?: Yes Plan: US revealed a lower leg tibial vein DVT - Continue on Eliquis 5mg PO BID, plan to continue therapy x3 months. (8) Dehydration Is this a current diagnosis for this admission?: Yes Plan: Kidney function at baseline as discussed above. - Hold IVF as above - Monitor I&Os, expect negative fluid balance with Lasix onboard (9) Elevated troponin I level Is this a current diagnosis for this admission?: Yes Plan: Resolved, without complaints of CP. - Troponin 0.162>0.124 - EKG sinus rhythm no ST elevation - Likely secondary to demand ischemia from hypoxia - No Further interventions needed (10) Pneumonia due to COVID-19 virus Is this a current diagnosis for this admission?: Yes Plan: Tested positive for Covid pneumonia 5 days prior to admission. - Completed remdesivir therapy in full . - Completed convalescent plasma. - Completed Dexa therapy x10 day course. - Cnt with DuoNeb prn. - Cnt supplements. - Home O2 as above (11) Hyperkalemia Is this a current diagnosis for this admission?: Yes Plan: Remains resolved. (12) Critical illness myopathy Is this a current diagnosis for this admission?: Yes Plan: Physical therapy evaluated patient, discussed with PT, PT note reviewed in detail - Recommend continued therapy. - Pt self pay, home health PT concepcion gonzales - Discussed with family, strong support system at home - PT has provided patient with home exercises for completion - Encouraged frequent, supported movement, up and out of bed during the day (13) Gout due to renal impairment Qualifiers: Gout site: knee Laterality: unspecified laterality Presence of tophus: without tophus Is this a current diagnosis for this admission?: Yes Plan: Colchicine therapy x3 days. - Completed at this time. - No further attention needed (14) Hypomagnesemia Is this a current diagnosis for this admission?: Yes Plan: Magnesium 1.3. - Replace with IV Mag - Monitor on BMP - Plan Summary Summary: Home O2 scheduled for delivery tomorrow. Dc home tomorrow. - Time Time Spent with patient: 35 or more minutes Medications reviewed and adjusted accordingly: Yes Anticipated Discharge Disposition: Home, Self Care Anticipated Discharge Timeframe: within 48 hours
[2020-03-29] MEDS: MELATONIN 5 MG TABLET PO SCH (22:20)
[2020-03-30] MEDS: IPRATROPIUM/ALBUTEROL 0.5-2.5 MG/3 ML AMPUL NEB SCH ×3 (00:28→07:38)
[2020-03-30 04:56] LABS: HEMATOCRIT 26.8 % (37.9-51.0); HEMOGLOBIN 8.9 g/dL (13.5-17.0); MEAN CORPUSCULAR HGB CONC 33.1 g/dL (32.0-36.0); MEAN CORPUSCULAR VOLUME 79 fl (80-97); PLATELET COUNT 191 10^3/uL (150-450); RED BLOOD COUNT 3.41 10^6/uL (4.35-5.55); RED CELL DISTRIBUTION WIDTH 13.8 % (11.5-14.0); WHITE BLOOD COUNT 9.5 10^3/uL (4.0-10.5)
[2020-03-30 05:16] LABS: ANION GAP 8 (5-19); BLOOD UREA NITROGEN 50 mg/dL (7-20); CALCIUM 8.7 mg/dL (8.4-10.2); CARBON DIOXIDE 26 mmol/L (22-30); CHLORIDE 104 mmol/L (98-107); GLUCOSE 117 mg/dL (75-110); POTASSIUM 4.2 mmol/L (3.6-5.0)
[2020-03-30] MEDS ORDERED: IPRATROPIUM/ALBUTEROL 0.5-2.5 MG/3 ML AMPUL NEB PRN (08:23)
[2020-03-30] MEDS: APIXABAN 5 MG TABLET PO SCH (09:18)
[2020-03-30] MEDS: FAMOTIDINE 20 MG TABLET PO SCH (09:18)
[2020-03-30] MEDS: ZINC SULFATE 220 MG CAPSULE PO SCH (09:18)
[2020-03-30] MEDS: CHOLECALCIFEROL (D3) 1,000 UNIT (25 MCG) TABLET PO SCH (09:18)
[2020-03-30] MEDS: ASCORBIC ACID 500 MG TABLET PO SCH (09:18)
[2020-03-30] MEDS: ACETAMINOPHEN 325 MG TABLET PO PRN (09:19)
[2020-03-30] MEDS ORDERED: POLYETHYLENE GLYCOL 3350 POWDER 17 GM/1 PACKET PO SCH (10:00)
[2020-03-30 13:06] VITALS: BP 136/72
[2020-03-30] MEDS: CEFEPIME HCL 2 GM in DEXTROSE 5%-WATER 50 ML IV SCH (13:08)
--- NOTE | 2020-03-30 19:25 | PDOC DISCHARGE SUMMARY ---
Impression - Admit/DC Date/PCP Admission Date/Primary Care Provider: 03/09/20 14:45 Discharge Date: 03/30/20 - Discharge Diagnosis (1) Hospital-acquired pneumonia Is this a current diagnosis for this admission?: Yes (2) Fluid overload Is this a current diagnosis for this admission?: Yes (3) Anemia of chronic disease Is this a current diagnosis for this admission?: Yes (4) Hypernatremia Is this a current diagnosis for this admission?: Yes (5) Acute hypoxemic respiratory failure due to COVID-19 Is this a current diagnosis for this admission?: Yes (6) Acute kidney injury superimposed on chronic kidney disease Is this a current diagnosis for this admission?: Yes (7) DVT (deep venous thrombosis) Is this a current diagnosis for this admission?: Yes (8) Dehydration Is this a current diagnosis for this admission?: Yes (9) Elevated troponin I level Is this a current diagnosis for this admission?: Yes (10) Pneumonia due to COVID-19 virus Is this a current diagnosis for this admission?: Yes (11) Hyperkalemia Is this a current diagnosis for this admission?: Yes (12) Critical illness myopathy Is this a current diagnosis for this admission?: Yes (13) Gout due to renal impairment Is this a current diagnosis for this admission?: Yes (14) Hypomagnesemia Is this a current diagnosis for this admission?: Yes - Assessment Summary: Home O2 scheduled for delivery tomorrow. Dc home tomorrow. - Additional Information Discharge Diet: Regular Discharge Activity: Activity As Tolerated, Other - Physical therapy exercises as indicated. Prescriptions: Apixaban [Eliquis] 5 mg PO ASDIR PRN #1 tab.ds.pk PRN Reason: Levofloxacin [Levaquin 750 mg Tablet] 750 mg PO DAILY 5 Days #5 tablet Levofloxacin 750 mg/D5w RTU [Levaquin RTU 750 mg/D5w 150 ml Premix] 750 mg IV DAILY 5 Days #5 ml Home Medications: Codeine Phosphate/Guaifenesin [Virtussin AC 10-100 mg/5 ml Lq] 5 ml PO Q6HP PRN 03/09/20 Doxycycline Hyclate [Vibramycin 100 mg Tablet] 100 mg PO DAILY 03/09/20 Apixaban [Eliquis] 5 mg PO ASDIR PRN #1 tab.ds.pk 03/30/20 Levofloxacin 750 mg/D5w RTU [Levaquin RTU 750 mg/D5w 150 ml Premix] 750 mg IV DAILY 5 Days #5 ml 03/30/20 Levofloxacin [Levaquin 750 mg Tablet] 750 mg PO DAILY 5 Days #5 tablet 03/30/20 History of Present Illiness History of Present Illness: As per admitting physician: TERENCE HINTON JR is a 49 year old male, no significant PMH who came in the ED today due to progressive SOB. Patient was seen in the emergency room on March 03, 2020 with complaints of cough fever and congestion 5 days duration. Chest x-ray was negative. He was noted to have elevated creatinine during that visit. He was advised to be admitted but he insisted he wanted to go home. He was tested for Covid and the result came back positive the next day. At home he continued to have cough congestion with progressive shortness of breath which acutely worsened today hence he came to the ED. He was noted to have an O2 sat of 80% in the ambulance on the way here. In the ED blood pressure 129/60 heart rate of 75 respiratory rate of 32 O2 sat 96% on CPAP. He was placed on BiPAP in the ED continue to have saturation of 100%. Repeat chest x-ray showed bibasilar alveolar airspace disease. CBC unremarkable, CMP showed a creatinine of 4.87 which is increased from 2.92 from his last visit. Ferritin elevated to 554 CRP elevated to 66.3. Hospitalist service was called to admit the patient. Hospital Course Hospital Course: Hospital-acquired pneumonia Patient afebrile with minimally elevated HR (100) at discharge. - CXR 03/29 notable for worsening airspace opacities. - Given hospitalization course likely HAP - Cefepime x2 days, transitioned to Levaquin 750mg daily x5 days in outpatient setting - BC without growth > 24 hrs - Leukocytosis resolved Fluid overload Resolved with IV lasix. Anemia of chronic disease Hgb consistently 9.0. Hemodynamically stable without symptom. - Iron studies completed with TIBC 222. - Secondary to CKD. Acute hypoxemic respiratory failure due to COVID-19 Tested positive for Covid 5 days prior to admission - Completed remdesivir therapy in full . - Completed convalescent plasma. - Completed Dexa therapy x10 day course. - Cnt with DuoNeb prn. - Cnt supplements. - Home O2 as above - O2 sat >95% on 2L NC - Home O2 organized - Stable for dc. - No further quarantine needed Acute kidney injury superimposed on chronic kidney disease Patient with history of chronic kidney disease. - Baseline creatinine 2.6 - Is producing urine without difficulty. DVT (deep venous thrombosis) US revealed a lower leg tibial vein DVT - Continue on Eliquis therapy, plan to continue therapy x3 months. Elevated troponin I level Resolved, without complaints of CP. - Troponin 0.162>0.124 - EKG sinus rhythm no ST elevation - Likely secondary to demand ischemia from hypoxia - No Further interventions needed Critical illness myopathy Physical therapy evaluated patient, discussed with PT, PT note reviewed in detail - Recommend continued therapy. - Pt self pay, home health PT concepcion medeltthernandez - Discussed with family, strong support system at home - PT has provided patient with home exercises for completion - Encouraged frequent, supported movement, up and out of bed during the day Gout due to renal impairment Colchicine therapy x3 days. - Completed at this time. - No further attention needed Physical Exam Vital Signs: Temp Pulse Resp BP Pulse Ox 98.4 F 95 18 136/72 H 97 03/30/20 13:02 03/30/20 13:02 03/30/20 13:02 03/30/20 13:02 03/30/20 13:02 Intake & Output 03/29/20 03/30/20 03/31/20 06:59 06:59 06:59 Intake Total 672 510 357 Output Total 2200 1551 Balance -1528 -1041 357 Weight 65.8 kg 64.4 kg Additional comments: General appearance: PRESENT: no acute distress, cooperative, well-developed, well-nourished Head exam: PRESENT: atraumatic, normocephalic Eye exam: PRESENT: EOMI. ABSENT: scleral icterus Mouth exam: PRESENT: moist, neck supple Neck exam: PRESENT: full ROM. ABSENT: JVD, tenderness Respiratory exam: PRESENT: clear to auscultation ern[place], symmetrical, unlabored. ABSENT: crackles, rales, wheezes Cardiovascular exam: PRESENT: RRR, +S1, +S2. ABSENT: clicks, diastolic murmur, gallop, systolic murmur, tachycardia Pulses: PRESENT: normal radial pulses GI/Abdominal exam: PRESENT: soft. ABSENT: tenderness Extremities exam: PRESENT: full ROM ABSENT: pedal edema Musculoskeletal exam: PRESENT: ambulatory, full ROM, other - Decreased muscle mass.. ABSENT: deformity Neurological exam: PRESENT: alert, awake, oriented to person, oriented to place, oriented to time, oriented to situation, CN II-XII grossly intact Psychiatric exam: PRESENT: appropriate affect, normal mood Skin exam: PRESENT: dry, intact, warm Results Laboratory Results: WBC 9.5 10^3/uL (4.0-10.5) 03/30/20 04:03 RBC 3.41 10^6/uL (4.35-5.55) L 03/30/20 04:03 Hgb 8.9 g/dL (13.5-17.0) L 03/30/20 04:03 Hct 26.8 % (37.9-51.0) L 03/30/20 04:03 MCV 79 fl (80-97) L 03/30/20 04:03 MCH 26.0 pg (27.0-33.4) L 03/30/20 04:03 MCHC 33.1 g/dL (32.0-36.0) 03/30/20 04:03 RDW 13.8 % (11.5-14.0) 03/30/20 04:03 Plt Count 191 10^3/uL (150-450) 03/30/20 04:03 Lymph % (Auto) Not Reportable 03/29/20 09:43 [place] % (Auto) Not Reportable 03/29/20 09:43 Eos % (Auto) Not Reportable 03/29/20 09:43 Baso % (Auto) Not Reportable 03/29/20 09:43 Reticulocyte # 0.034 10^6/uL (0.028-0.122) 03/09/20 18:07 Absolute Neuts (auto) Not Reportable 03/29/20 09:43 Absolute Lymphs (auto) Not Reportable 03/29/20 09:43 Absolute Monos (auto) Not Reportable 03/29/20 09:43 Absolute Eos (auto) Not Reportable 03/29/20 09:43 Absolute Basos (auto) Not Reportable 03/29/20 09:43 Total Counted 100 03/29/20 09:43 Seg Neutrophils % Not Reportable 03/29/20 09:43 Seg Neuts % (Manual) 90 % (42-78) H 03/29/20 09:43 Band Neutrophils % 1 % (3-5) L 03/09/20 12:12 Lymphocytes % (Manual) 5 % (13-45) L 03/29/20 09:43 Monocytes % (Manual) 5 % (3-13) 03/29/20 09:43 Eosinophils % (Manual) 0 % (0-6) 03/29/20 09:43 Basophils % (Manual) 0 % (0-2) 03/29/20 09:43 Metamyelocytes % 1 % (0-1) 03/12/20 06:44 Abs Neuts (Manual) 10.2 10^3/uL (1.7-8.2) H 03/29/20 09:43 Abs Lymphs (Manual) 0.6 10^3/uL (0.5-4.7) 03/29/20 09:43 Abs Monocytes (Manual) 0.6 10^3/uL (0.1-1.4) 03/29/20 09:43 Absolute Eos (Manual) 0.0 10^3/uL (0.0-0.6) 03/29/20 09:43 Abs Basophils (Manual) 0.0 10^3/uL (0.0-0.2) 03/29/20 09:43 Platelet Comment ADEQUATE 03/29/20 09:43 Polychromasia SLIGHT 03/29/20 09:43 Hypochromasia 1+ 03/11/20 05:45 Poikilocytosis SLIGHT 03/20/20 04:18 Anisocytosis SLIGHT 03/12/20 06:44 Microcytosis SLIGHT 03/29/20 09:43 Tear Drop Cells SLIGHT 03/20/20 04:18 Ovalocytes SLIGHT 03/29/20 09:43 ESR > 120 mm/hr (0-20) H 03/24/20 05:09 Retic Count (auto) 0.85 % (0.66-2.85) 03/09/20 18:07 Fibrinogen 985 mg/dL (209-497) H 03/29/20 09:43 D-Dimer 2.67 ug/mL (0.00-0.50) H 03/29/20 09:43 Carbonic Acid 0.82 mmol/L (1.05-1.35) L 03/09/20 17:50 HCO3/H2CO3 Ratio 18:1 03/09/20 17:50 ABG pH 7.35 (7.35-7.45) 03/09/20 17:50 ABG pCO2 27.4 mmHg (35-45) L 03/09/20 17:50 ABG pO2 88.6 mmHg (80-100) 03/09/20 17:50 ABG HCO3 14.9 mmol/L (20-24) L 03/09/20 17:50 ABG Total CO2 15.8 mmol/L (23-27) L 03/09/20 17:50 ABG O2 Saturation 96.6 % (94-98) 03/09/20 17:50 ABG Base Excess -9.2 mmol/L 03/09/20 17:50 VBG pH 7.32 (7.30-7.42) 03/09/20 13:20 VBG pCO2 23.3 mmHg (35-63) L 03/09/20 13:20 VBG HCO3 11.7 mmol/L (20-32) L 03/09/20 13:20 VBG Base Excess -11.7 mmol/L 03/09/20 13:20 FiO2 100% 03/09/20 17:50 Sodium 137.8 mmol/L (137-145) 03/30/20 04:03 Potassium 4.2 mmol/L (3.6-5.0) 03/30/20 04:03 Chloride 104 mmol/L (98-107) 03/30/20 04:03 Carbon Dioxide 26 mmol/L (22-30) 03/30/20 04:03 Anion Gap 8 (5-19) 03/30/20 04:03 BUN 50 mg/dL (7-20) H 03/30/20 04:03 Creatinine 2.35 mg/dL (0.52-1.25) H 03/30/20 04:03 Est GFR ( Amer) 36 (>60) L 03/30/20 04:03 Est GFR (Non-Af Amer) Cancelled 03/19/20 04:58 Est GFR (MDRD) Non-Af 29 (>60) L 03/30/20 04:03 Glucose 117 mg/dL (75-110) H 03/30/20 04:03 POC Glucose 155 mg/dL (70-110) H 03/16/20 11:26 Lactic Acid 1.5 mmol/L (0.7-2.1) 03/29/20 09:43 Uric Acid 9.0 mg/dL (3.5-8.5) H 03/24/20 05:09 Calcium 8.7 mg/dL (8.4-10.2) 03/30/20 04:03 Phosphorus 4.1 mg/dL (2.5-4.5) 03/27/20 04:22 Magnesium 2.3 mg/dL (1.6-2.3) D 03/30/20 04:03 Iron < 10.1 ug/dL (49-181) L 03/09/20 18:07 TIBC 222 ug/dL (250-450) L 03/09/20 18:07 Iron Saturation UNABLE TO CALCULATE % (20% - 50%) 03/09/20 18:07 Ferritin 568.00 ng/mL (17.9-464.0) H 03/29/20 09:43 Total Bilirubin 0.6 mg/dL (0.2-1.3) 03/29/20 09:43 Direct Bilirubin 0.4 mg/dL (0.0-0.4) 03/29/20 09:43 Neonat Total Bilirubin Not Reportable 03/29/20 09:43 Neonat Direct Bilirubin Not Reportable 03/29/20 09:43 Neonat Indirect Bili Not Reportable 03/29/20 09:43 AST 40 U/L (17-59) 03/29/20 09:43 ALT 78 U/L (<50) H 03/29/20 09:43 Alkaline Phosphatase 535 U/L (38-126) H 03/29/20 09:43 Lactate Dehydrogenase 199 U/L (120-246) 03/29/20 09:43 Creatine Kinase 45 U/L (55-170) L 03/09/20 12:12 Troponin I 0.124 ng/mL 03/10/20 10:40 C-Reactive Protein 73.4 mg/L (<10.0) H 03/29/20 09:43 NT-Pro-B Natriuret Pep 155 pg/mL (<125) H 03/09/20 12:12 Total Protein 6.1 g/dL (6.3-8.2) L 03/29/20 09:43 Albumin 2.7 g/dL (3.5-5.0) L 03/29/20 09:43 EGFR Cancelled 03/19/20 04:58 Vitamin B12 > 1000.0 pg/mL (239-931) H 03/09/20 18:07 Folate 9.57 ng/mL (>2.76) 03/09/20 18:07 Cortisol AM Sample 40.40 ug/dL (4.46-22.7) H 03/23/20 04:30 Urine Color YELLOW 03/28/20 06:51 Urine Appearance CLEAR 03/28/20 06:51 Urine pH 5.0 (5.0-9.0) 03/28/20 06:51 Ur Specific [place] 1.011 03/28/20 06:51 Urine Protein 100 mg/dL (NEGATIVE) H 03/28/20 06:51 Urine Glucose (UA) NEGATIVE mg/dL (NEGATIVE) 03/28/20 06:51 Urine Ketones NEGATIVE mg/dL (NEGATIVE) 03/28/20 06:51 Urine Blood NEGATIVE (NEGATIVE) 03/28/20 06:51 Urine Nitrite NEGATIVE (NEGATIVE) 03/28/20 06:51 Urine Bilirubin NEGATIVE (NEGATIVE) 03/28/20 06:51 Urine Urobilinogen NEGATIVE mg/dL (<2.0) 03/28/20 06:51 Ur Leukocyte Esterase NEGATIVE (NEGATIVE) 03/28/20 06:51 Urine WBC (Auto) 1 /HPF 03/26/20 09:50 Urine RBC (Auto) 1 /HPF 03/28/20 06:51 U Hyaline Cast (Auto) 1 /LPF 03/21/20 10:15 Urine Bacteria (Auto) 1+ /HPF 03/19/20 14:02 Squamous Epi Cells Auto <1 /HPF 03/28/20 06:51 Amorphous Sediment Auto TRACE /HPF 03/23/20 08:09 Urine Mucus (Auto) RARE /LPF 03/28/20 06:51 Urine Creatinine 117.2 mg/dL (22-328) 03/09/20 17:45 Urine Sodium 13 mmol/L (30-90) L 03/09/20 17:45 Urine Ascorbic Acid 20 (NEGATIVE) H 03/28/20 06:51 Blood Type O POSITIVE 03/09/20 18:07 03/09/20 03/09/20 03/09/20 12:12 12:12 21:20 Troponin I 0.063 0.259 NT-Pro-B Natriuret Pep 155 H 03/10/20 03/10/20 04:40 10:40 Troponin I 0.162 0.124 NT-Pro-B Natriuret Pep Impressions: Chest X-Ray 03/09/20 12:14 IMPRESSION: Bibasilar alveolar airspace disease either pneumonia or edema. Fairly marked gastric distention. Chest X-Ray 03/12/20 00:00 IMPRESSION: Increased diffuse bilateral parenchymal opacities associated with blunting of the costophrenic sulci. Differential considerations include worsening pulmonary edema or multifocal pneumonia. Venous Doppler Study 03/12/20 00:00 IMPRESSION: 1. Positive examination on the left. Acute occlusive thrombus within the left posterior tibial vein. 2. NO EVIDENCE DVT OR SVT IN RIGHT LEG. Chest X-Ray 03/23/20 00:00 IMPRESSION: Improving aeration. Chest X-Ray 03/29/20 00:00 IMPRESSION: Interval worsening in the appearance of multifocal airspace opacities. Plan Plan of Treatment: (1) Pneumonia: You hav pneumonia (a infection in your lungs) for this you received intravenous antibiotics, additionally I have given you a prescription for Levaquin 750 mg to be taken daily for the next 5 days with first dose tomorrow and last dose 04/04/2020. Please take this prescription in full. (2) Positive Covid:You had a positive covid test prior to admission, at this time you have quarantine for the appropriate amount of days. Please wear your mask when out in public. (3) Difficulty breathing: Your oxygen level in your blood has been consistently low. For this we have arranged home oxygen. Please use daily. (4) Generalized weakness: This is likely from your body fighting off infections and from being in bed all day long recently. Our physical therapy team has provided you with written exercises that you are to do daily. I recommend only being in bed at night to sleep, otherwise I encourage you stay out of bed and move around as often and as safely as possible. The exercises will help too. (5) Deep vein thrombosis: You were found to have a blood clot in your leg. For this we have been treating you with a blood thinner called Eliquis. I have given you a prescription for Eliquis dispensed pack. Please take as instructed on the dispense pack. Please take this medication daily for a total of three months. Goals: Please follow up with your primary care provider within one week of discharge from the hospital. Time Spent: Greater than 30 Minutes Stroke Is this a Stroke Patient?: No Acute Heart Failure Is this a Heart Failure Patient?: No
== END 2020-03-30 14:34 | disposition home or self-care (01) | DRG 177 ==
LOC: ER 12:00 → EH 14:45 → 3N 21:58 → UNDODISIN 03-17 18:00
PROVIDERS: ADMIT Internal Medicine; ATTEND Physician Assistant
PROC: XW033E5 Introduction of Remdesivir Anti-infective into Peripheral Vein, Percutaneous Approach, New Technology Group 5 (ICD-10-PCS; principal; 2020-03-09)
PROC: 5A09557 Assistance with Respiratory Ventilation, Greater than 96 Consecutive Hours, Continuous Positive Airway Pressure (ICD-10-PCS; 2020-03-09)
PROC: XW13325 Transfusion of Convalescent Plasma (Nonautologous) into Peripheral Vein, Percutaneous Approach, New Technology Group 5 (ICD-10-PCS; 2020-03-10)
DX: U07.1 COVID-19 (principal); J12.89 Other viral pneumonia; J96.01 Acute respiratory failure with hypoxia; E87.0 Hyperosmolality and hypernatremia; N17.9 Acute kidney failure, unspecified; I82.442 Acute embolism and thrombosis of left tibial vein; D63.1 Anemia in chronic kidney disease; E86.0 Dehydration; E87.5 Hyperkalemia; G72.9 Myopathy, unspecified; M10.30 Gout due to renal impairment, unspecified site; F41.9 Anxiety disorder, unspecified; R79.89 Other specified abnormal findings of blood chemistry; N18.32 Chronic kidney disease, stage 3b; E83.42 Hypomagnesemia; Z79.899 Other long term (current) drug therapy; Z87.442 Personal history of urinary calculi
CPT/HCPCS: 36415; 36430; 36600; 71045; 80048; 80053; 80069; 80076; 81001; 82533; 82550; 82570; 82607; 82728; 82746; 82803; 82962; 83540; 83550; 83605; 83615; 83735; 83880; 84300; 84484; 84550; 85025; 85027; 85045; 85379; 85384; 85652; 86140; 86900; 86901; 87040; 93005; 93010; 93970; 94660; 96361; 96374; 99285; J0692; J1100; J1630; J1650; J1940; J2060; J2270; J2405; J2920; J3475; J3490; J7030; J7050; J7060; P9047